=== PATIENT | male | born 1960 | race Caucasian/White ===

== ENCOUNTER 2020-07-13 20:33 | Emergency (ER) | payer OTHER ==
[~2020-07-13] VITALS: Ht 182.9 cm; Wt 90.7 kg
[2020-07-13] MEDS ORDERED: SPIRIVA RESPIMAT4 G1 INH (20:58)
[2020-07-13] MEDS ORDERED: VENTOLIN HFA18 GM INH (20:58)
[2020-07-13] MEDS ORDERED: PRILOSEC OTC20 MG PO (20:59)
--- NOTE | 2020-07-14 12:51 | EKG ---
[facility] [address] [facility] [place], [place] [address] Signed Normal sinus rhythm Low voltage QRS Borderline ECG No previous ECGs available Confirmed by MICHAEL MILLER DO ([id number]) on 07/14/2020 12:51:04 PM Electronically Signed By: MICHAEL MILLER DO 07/14/20 1251 PATIENT NAME: JOSSIE CERVANTES Electrocardiogram DATE OF : 60 PHYSICIAN: MICHAEL MILLER DO REPORT #: [id number] REPORT IS CONFIDENTIAL AND NOT TO BE RELEASED WITHOUT AUTHORIZATION
== END 2020-07-14 01:35 | disposition home or self-care (01) ==
LOC: ED 20:33
DX: J18.9 Pneumonia, unspecified organism (principal); Z20.828 Contact with and (suspected) exposure to other viral communicable diseases; J44.9 Chronic obstructive pulmonary disease, unspecified; Z87.891 Personal history of nicotine dependence; Z79.899 Other long term (current) drug therapy
CPT/HCPCS: 71045; 80053; 83735; 83880; 84484; 85025; 93005; 93010; 96365; 99285-25; J1956

== ENCOUNTER 2022-05-17 12:43 | Inpatient (IN) | payer OTHER ==
[~2022-05-17] VITALS: Ht 182.9 cm; Wt 113.0 kg
[~2022-05-17 12:43] MED LIST: PRILOSEC OTC20 MG PO; SPIRIVA RESPIMAT4 G1 INH; VENTOLIN HFA18 GM INH
[2022-05-17] MEDS ORDERED: SINGULAIR10 MG PO (13:01)
[2022-05-17] MEDS ORDERED: PROAIR HFA8.5 GM INH (13:01)
[2022-05-17] MEDS ORDERED: VITAMIN D250 MC1 PO (13:02)
[2022-05-17] MEDS ORDERED: METHOTREXATE2.5 MG PO (13:03)
[2022-05-17] MEDS ORDERED: CLOBETASOL PROP59 ML TOP (13:04)
[2022-05-17] MEDS ORDERED: CELEBREX100 MG PO (13:04)
--- NOTE | 2022-05-17 18:22 | NUR ---
61 YEAR OLD MALE PATIENT ADMITTED TO CCU FROM ED VIA STRETCHER UNDER DR. ARREOLA WITH DX OF SEPSIS. PATIENT HAS BEEN FEELING ILL FOR THE PAST 3 WEEK, REPORTING FEVER AND CHILLS. PATIENT RECIEVED A TOTAL OF 5500 ML OF IVF IN ED AND HAS VOIDE A TOTAL OF 850 ML OF URINE. BUN AND CREATININE ARE ELEVATED. PATIENT REPORTS HAVING A POOR PO INTAKE OF FOOD/FLUIDS. BLOOD CULTURES OBTAINED IN ED, PATIENT RECIEVED IV ZOSYN. MEDICAL HX OF COPD, PREDIABETIC, SURGICAL HX , HERNIA. ADMISSION PROCESS STARTED.
--- NOTE | 2022-05-17 19:00 | NUR ---
MOTT CATH PLACED BY Anthony HUTSON RN. PATIENT TOLERATED WELL.
--- NOTE | 2022-05-17 19:23 | NUR ---
OFFICERS IN ROOM. REPORT TO NEXT SHIFT.
--- NOTE | 2022-05-17 20:00 | NUR ---
PATIENT IS RESTING IN BED. REPORTS FEELING THAT HE IS STARTING TO CHILL AGAIN. ORAL TEMP WNL. PATIENT FEELS COOL ON EXTREMITIES. WARM BLANKET PROVIDED. IV FLUIDS STARTED PER ORDER. PATIENT PROVIDED WITH PRN PAIN AND NAUSEA MEDS. ASSISTED PATIENT TO TURN TO HIS SIDE. MOTT IN PLACE, DRAINING WELL. VS STABLE. OFFICERS AT BEDSIDE. PATIENT DENIED OTHER NEEDS.
--- NOTE | 2022-05-17 22:00 | NUR ---
PATIENT FEELS MORE WARM, ORAL TEMP WNL. PATIENT IS NOT SHIVERING NOW AND FEELS WARM TO THE TOUCH. VS STABLE. IV FLUIDS PER ORDER. NO NAUSEA. PAIN IMPROVING. GOOD URINE OUTPUT, MOTT DRAINING WELL. ASSISTED PATIENT TO REPOSITION IN BED.
--- NOTE | 2022-05-17 23:00 | NUR ---
PATIENT RESTING IN BED. REPORTS IMPROVED COMFORT AND GENERALLY LOOKS MORE COMFORTABLE. ABD PAIN ACROSS LOWER ABD IS 5/10. NO NAUSEA. IV ABX PER ORDER, IV SITE WNL X2. PATIENT PROVIDED A CLEAR SODA. DENIED OTHER NEEDS.
--- NOTE | 2022-05-18 00:26 | NUR ---
PATIENT RESTING IN BED, EYES CLOSED WHEN RN IN ROOM. ALERTS EASILY TO SOUND. PATIENT DENIED ANY NEEDS. REPORTS FEELING HOT. ORAL TEMP WNL. EXTRA BLANKETS REMOVED. ADEQUATE URINE OUTPUT. IV FLUIDS PER ORDER, SITE WNL.
--- NOTE | 2022-05-18 00:45 | NUR ---
UPDATE GIVEN TO DR. ARREOLA MANUAL BP 76/62, HR 115. ORDERS TO GIVEN 500 ML BOLUS OVER 1 HOUR AND THEN INCREASE IVF TO 200 ML/HR. VERIFIED VIA REPEAT BACK METHOD. OUTPUT GOAL OF 45ML PER HOUR.
--- NOTE | 2022-05-18 01:48 | NUR ---
NOTED HR OF 164 ON MONITOR, IN TO ASSESS. pt STATED THE MONITOR ALARMING WOKE HIM, DENIES ANY SYMPTOMS FROM HR. HR NOW LOW 100'S. NO REQUESTS AT THIS TIME. CALL LIGHT WITHIN REACH. GUARDS AT BEDSIDE.
--- NOTE | 2022-05-18 04:25 | NUR ---
PATIENT RESTING IN BED WATCHING TV. REPORTS FEELING SLIGHTLY IMPROVED. ORAL AND AXILLARY TEMP WNL. URINE OUTPUT QS. VS STABLE. IV FLUIDS PER ORDER, SITE WNL. ABD SLIGHTLY LESS DISTENDED AND MORE SOFT. NO NAUSEA. PATIENT DENIED NEEDS.
--- NOTE | 2022-05-18 06:42 | NUR ---
UPDATE PROVIDED TO ORDERS VERIFIED VIA REPEAT BACK; ADD ON LABS AND MEDS. SEE ORDERS.
--- NOTE | 2022-05-18 07:14 | NUR ---
MORPHINE 4 MG IV GIVEN BY GROUP PRESIDENT RN PATIENT WITH SEVERE RIGORS. HR 150-170.
--- NOTE | 2022-05-18 07:15 | NUR ---
RECEIVING REPORT. UPON RECIEVING REPORT. PATIENT HAVING RIGORS. HR 170'S. IVF INFUSING AT 200 ML/HR. IV ABX INFUSING. RR-38. 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 HAS AUDIBLE EXP WHEEZES. HOB ELEVATED SLIGHTLY. MOTT PATENT. WHEN I ASKED PATIENT IF THIS IS WHAT HAS BEEN HAPPENING TO HIM OVER THE LAST FEW DAYS,PATIENT NODS HEAD UP AND DOWN INDICATING YES. OFFICERS X [address] ARREOLA NOTIFIED.
--- NOTE | 2022-05-18 07:30 | NUR ---
ORDERS RECIEVED TO GIVE 15 MG OF IV TORDOL. RT GIVING NEB TREATMENT. MAG HUNG PER ORDERS.
--- NOTE | 2022-05-18 08:11 | NUR ---
LAB HERE TO DRAW BLOOD CULTURES. PATIENT NOW MUCH MORE CALM. NO WHEEZES HEARD. RR-25, HR-125, AX TEMP -102.2,
--- NOTE | 2022-05-18 08:20 | NUR ---
OXYCODONE 5 MG PO GIVEN FOR GENERAL PAIN.
--- NOTE | 2022-05-18 09:51 | NUR ---
RESTING. NO DISTRESS NOTED.
--- NOTE | 2022-05-18 10:00 | NUR ---
DR. ARREOLA HERE TO SEE PATIENT. PATIENT WILL HAVE REPEAT CT OF ABD/PELVIS TODAY. PATIENT STATES HE FEELS BETTER AFTER RECIEVING PAIN MEDICATION. IS DIAPHORTIC. CURRENT TEMP 99.5 AX.
--- NOTE | 2022-05-18 10:31 | NUR ---
PATIENT AWAKE IN BED, 2 GUARDS IN ROOM. BEDBATH PROVIDED, NEW GOWN PROVIDED. VITALS CHARTED. FRESH ICE WATER PROVIDED. NO OTHER NEEDS AT THIS TIME
[2022-05-18] MEDS ORDERED: INCRUSE ELLI62.5 MCG INH (11:09)
[2022-05-18] MEDS ORDERED: DOVONEX60 GM TOP (11:10)
--- NOTE | 2022-05-18 11:11 | NUR ---
MED REC COMPLETE
--- NOTE | 2022-05-18 11:18 | NUR ---
HAS BEEN TALKING ORAL CONTRAST. DENIES NAUSEA.
--- NOTE | 2022-05-18 12:15 | NUR ---
TO CT VIA BED. BED LINEN CHANGED WHEN PATIENT IN CT.
--- NOTE | 2022-05-18 12:40 | NUR ---
RETURN TO CCU. TOLERATED CT WELL. TEMP 101.4 AX, TYLENOL 500 MG PO GIVEN FOR COMFORT AND FEVER. PATENT HAS BEENT TAKING WATER W/O NAUSEA. CLEAR LIQ LUNCH TRAY HELD.
[2022-05-18] MEDS ORDERED: FOLIC ACID0.4 MG PO (12:47)
--- NOTE | 2022-05-18 13:20 | NUR ---
CT RESULTS BACK, DR. ARREOLA NOTIFIED.
--- NOTE | 2022-05-18 14:15 | NUR ---
OXYCODONE 5 MG PO GIVEN FOR COMFORT.
--- NOTE | 2022-05-18 15:00 | NUR ---
HIGHER DOSE OF ZOSYN ORDERED AND HUNG. THE ZOSYN THAT WAS AT 1348 THIS AFTERNOON WAS DC'D AT [address] ARREOLA ORDERS HE WANTED THE HIER DOSE STARTED MICHAEL.
--- NOTE | 2022-05-18 15:25 | NUR ---
HEPARIN GTT HUNG AT 1600 UNITS/HR PER ORDERS.
--- NOTE | 2022-05-18 16:50 | NUR ---
DR. ARREOLA PHONED IN TO CHECK ON PATIENT. IVF TO TOTAL 100 ML TOTAL. LR IVF DECREASED TO 68 ML/HR, HEPARIN GTT INFUSING AT 32 ML/HR. NEXT PTT TO BE DRAWN AT 2100 THIS EVENING.
--- NOTE | 2022-05-18 17:15 | NUR ---
DENIES PAIN WITH PALPATION OF ABD. STATES HE IS FEELING BETTER. SITTING UP IN BED FOR CLEAR LIQUID DIET.
--- NOTE | 2022-05-18 18:50 | NUR ---
NAPPING NOW. NO CHANGES.
--- NOTE | 2022-05-18 19:47 | NUR ---
RECEIVED REPORT FROM MARJAN POSADA. pt RESTING IN BED. PROVIDED A WARM BLANKET, pt REPORTS PAIN, DECLINED PAIN MEDICATION AT THIS TIME. CALL LIGHT WITHIN REACH. GUARDS AT BEDSIDE.
--- NOTE | 2022-05-18 21:00 | NUR ---
IN TO DO ASSESSMENT. pt DROWSY, WHEN ASKED IF HE HAD QUESTIONS ABOUT WHAT DR ARREOLA HAD TOLD HIM HE WAS UNSURE WHEN DR ARREOLA HAD BEEN IN HIS ROOM LAST. ORIENTED TO SELF AND PLACE. pt HAS FEVER, PROVIDED TYLENOL. ASSESSMENT DONE. ABD FIRM AND TENDER TO PALPATION. PAIN "OKAY" RIGHT NOW OFFERED PAIN MEDICATION pt DECLINED. INSTRUCTED TO CALL IF HIS PAIN INCREASED. MOTT CARE DONE. pt MOANING/GRUNTING WITH RESPIRATIONS RATE 20'S. DENIES SOB, LUNGS CLEAR THROUGHOUT. LAB DRAW COMPLETED BY Celsion. CALL LIGHT WITHIN REACH. GUARDS AT BEDSIDE.
--- NOTE | 2022-05-18 21:52 | NUR ---
GUARD CALLED THIS RN TO ROOM. pt REPORTING 8/10 PAIN WITH BLADDER "I FEEL LIKE I REALLY HAVE TO PEE" FLUSHED MOTT, 1 SMALL CLOT EXTRACTED. URINE FREE FLOWING. BLADDER SCAN SHOWED NO URINE ALTHOUGH BODY HABITUS MADE SCAN DIFFICULT. pt REPORTS PAIN HAS NOT CHANGED, PROVIDED WITH PRN OXY. LINENS CHANGED. pt REPOSITIONED TO RIGHT SIDE. CALL LIGHT WITHIN REACH. GUARDS AT BEDSIDE.
--- NOTE | 2022-05-18 21:53 | NUR ---
CALLED DR ARREOLA, UPDATED ON FEVER, LABS AND BLADDER ISSUE. MD ORDERED TO REMOVE MOTT AT THIS TIME. NO OTHER ORDERS.
--- NOTE | 2022-05-18 22:12 | NUR ---
MOTT REMOVED, pt STOOD AT BEDSIDE TO ATTEMPT VOID, NO URINE AT THIS TIME. pt SAT ON BEDSIDE REPORTED MOVING "FEELS GOOD" ASSISTED BACK TO BED. IV ANTIBIOTIC INFUSING PER ORDERS. pt REPORTS THAT WITH MOTT REMOVAL HE IS "FEELING BETTER" CALL LIGHT WITHIN REACH. GUARDS AT BEDSIDE.
--- NOTE | 2022-05-18 23:55 | NUR ---
ROUNDED ON pt. RESTING IN BED WITH EYES CLOSED, RESPIRATIONS REGULAR AND UNLABORED RATE 19. NO URINE OUT AT THIS TIME. GUARDS AT BEDSIDE. CALL LIGHT WITHIN REACH.
--- NOTE | 2022-05-19 02:07 | NUR ---
NOTED ARTIFACT ON MONITOR, IN TO ASSIST. pt GETTING UP WITH GUARD. ASSISTED TO STAND AND AMBULATE INTO BATHROOM. pt REQUIRED ASSISTANCE WITH CORDS AND RESTRAINTS. VOIDED 225MLS OF DARK URINE. pt REPORTED 6/10 PAIN IN ABD. PRN GIVEN (SEE MAR). pt SOB WITH AMBULATION UPPER AIRWAY WHEEZING. RT IN WITH NEB TREATMENT. ASSESSMENT DONE. pt RESTING IN BED. PROVIDED FRESH ICE WATER. pt REPORTS "I FEEL BETTER AFTER GETTING SOME SLEEP" MUCH MORE ALERT THEN PRIOR INTERACTIONS. CALL LIGHT WITHIN REACH. GUARD AT BEDSIDE.
--- NOTE | 2022-05-19 03:27 | NUR ---
LAB COMPLETED DRAW. pt REPORTS THAT THE OXY DID NOT HELP HIS PAIN RATES IT 06/24. PRN MORPHINE GIVEN (SEE MAR). NO FURTHER REQUESTS AT THIS TIME. CALL LIGHT WITHIN REACH.
--- NOTE | 2022-05-19 04:26 | NUR ---
[facility] LABS PER LAB REQUEST. pt WOKE TO VOICE, REPORTS PAIN IS NOW 4/10. NO REQUESTS CALL LIGHT WITHIN REACH.
--- NOTE | 2022-05-19 05:21 | NUR ---
RECEIVED CALL FROM LAB WITH NEW aPTT OF 59.6, TITRATED HEPARIN TO 1800 UNITS PER HOUR PER INSTRUCTIONS. ORDERED LAB DRAW FOR 6 HOURS. pt RESTING IN BED WITH EYES CLOSED, RESPRIATIONS REGUALR AND UNLABORED. GUARD AT BEDSIDE. CALL LIGHT WITHIN REACH.
--- NOTE | 2022-05-19 06:15 | NUR ---
IN TO GIVE MEDICATIONS pt REPORTED 6/10 PAIN, PRN GIVEN PER REQUEST (SEE MAR). MORNING MEDS GIVEN. NO CHANGES IN ASSESSMENT. pt RESTING IN BED. CALL LIGHT WITHIN REACH.
--- NOTE | 2022-05-19 07:30 | NUR ---
REPORT RECIEVED. PATIENT RECIEVING NEB TREATMENT. PATIENT IS SOMULENT, DID RECIEVED OXYCODONE AND MORPHINE GIVEN EARLIER. TEMP 102.0. TYLENOL 500MG PO GIVEN. HEPARIN GTT INFUSING AT 1800 UNITS HR. IVF AT 50 ML/HR. ABD IS MORE FIRM TODAY. SLOW TO RESPOND TO COMMANDS.
--- NOTE | 2022-05-19 08:35 | NUR ---
ECHO BEING DONE AT BEDSIDE.
--- NOTE | 2022-05-19 10:20 | NUR ---
DR. ARREOLA HERE TO SEE PATIENT. ORDERS RECIEVED.
--- NOTE | 2022-05-19 10:30 | NUR ---
ptt-65.5. HEPARIN GTT INCREASED TO 1900 UNITS/HR.
--- NOTE | 2022-05-19 11:00 | NUR ---
TO XRAY VIA W/C ACCOMP BY STUDENT ASTRONAUTICAL ENGINEER, OFFICER, ASTRONAUTICAL ENGINEER, RN. PATIENT TO HAVE 3 VIEW ABD. ABD VERY DISTENDED. DENEIS PAIN.
--- NOTE | 2022-05-19 12:45 | NUR ---
DR. ARREOLA REQUESTED BLADDER SCANN PATIENT HASN'T VOIDED SINCE APPROX 0700 THIS AM.
--- NOTE | 2022-05-19 13:00 | NUR ---
BLADDER SCAN DONE, SCAN SHOWED 182 ML IN BLADDER.
--- NOTE | 2022-05-19 13:20 | NUR ---
BLADDER SCAN RESULTS CALLED TO DR. ARREOLA. ORDERS RECIEVED TO PLACE MOTT CATH, BOLUS OF LR 500 ML AND 100 ML OF ALBUMIN.
--- NOTE | 2022-05-19 14:00 | NUR ---
MOTT CATH PLACED WITH RETURN TO DARK JULIAN URINE.
--- NOTE | 2022-05-19 14:15 | NUR ---
LR BOLUS AND ALBUMIN HUNG AFTER PLACING A 22 GA IV TO RIGHT WRIST. TALKED WITH PATIENT ABOUT PLAN.
--- NOTE | 2022-05-19 15:14 | NUR ---
NAPPING, NO DISTRESS NOTED. LR BOLUS CONTINUES TO INFUSE. ALBUMIN COMPLETE. HEPARING AT 1900 UNITS/HR. SODIUM BICARB AT 100 ML/HR. IV ABX INFUSING.
--- NOTE | 2022-05-19 16:01 | NUR ---
ASSESSMENT DONE. INSTRUCTIONS ON USING I.S. GIVEN. TOOK FIRST DOSE OF GASTROGRAFIN WELL. ABD REMAINS FIRM AND DISTENDED. DENIES NAUSEA.
--- NOTE | 2022-05-19 17:40 | NUR ---
TO CT VIA W/C. RN AND OFFICER WITH PATIENT.
--- NOTE | 2022-05-19 17:50 | NUR ---
RETURN TO CCU. PATIENT TOLERATED CT POOR, HAD INCREASED SHORTNESS OF BREAT, HR UP TO 135, UPON RETURN TO ROOM, PATIENT IS VERY TIRED. C/O MOTT CATH PAIN. DENIES ABD PAIN. HEPARIN GTT INCREASED TO 2000 UNITS/HR PER PROTOCOL. PTT WAS 59. REPEAT PTT ORDERED FOR MIDNIGHT. PATIENT IS COOPERATIVE.
--- NOTE | 2022-05-19 18:15 | NUR ---
DR. ARREOLA PHONED, CT RESULTS INDICATE PERFORATED BOWEL. HEPARIN GTT DC'D. PATIENT IS SLEEPING WITH HOB ELEVATED AT APPROX 20 DEGREES. PLAN IS PROBABLE SURGERY THIS NIGHT. PATIENT NOT AWARE OF THIS. IVF INFUSING AT 100 ML/HR.
--- NOTE | 2022-05-19 19:22 | NUR ---
REPORT TO NEXT SHIFT. DR. HOLLAND HERE TO TALK WITH PATIENT ABOUT GOING TO SURGERY TONIGHT.
--- NOTE | 2022-05-19 19:44 | NUR ---
REPORT RECEIVED FROM MARJAN POSADA. DR HOLLAND HAS JUST FINISHED SEEING PT AND IS AWAITING OR CREW FOR SURGERY. CONSENT SIGNED, PT AWAKENS EASILY, STATES HE UNDERSTANDS REASONS FOR SURGERY AND RISKS/BENEFITS. HAS NO QUESTIONS AT THIS TIME. HR 100'S SINUS RHYTHM, RR 20 SPO2 94%, RESP SEEMS SLIGHTLY LABORED.
--- NOTE | 2022-05-19 20:30 | NUR ---
CALL LIGHT ANSWERED. THIS RN IN pt ROOM, pt HOLDING ABDOMEN, TURNING SIDE TO SIDE IN BED SAYING "HELP". RATES PAIN 10/10 ON LEFT SIDE OF ABDOMEN. PHONE CALL TO MD, TELEPHONE ORDER RECEIVED FOR PRN PAIN MEDICATION, ORDER REPEATED BACK TO VERIFY. EMAR UPDATED.
--- NOTE | 2022-05-19 20:37 | NUR ---
PRN PAIN MEDICATION ADMINISTERED AT THIS TIME BY ALBINO WILKINSON. GUARD IN ROOM.
--- NOTE | 2022-05-19 21:23 | CONS ---
[facility] [address] [place], [place] [address] Signed DATE OF CONSULTATION: 05/19/2022 REQUESTING PHYSICIAN: Dr. Arreola. 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 HISTORY OF PRESENT ILLNESS: This 61-year-old white man, who is a prisoner at [facility]. He was admitted to the hospital on May 17, 2022, having presented to the emergency room with significant abdominal pain and some pain in the left lower quadrant. He was admitted by Dr. Arreola as he was noted to have frequent chills, fevers, and sweating. He was unable to eat or drink and has had a low-grade hypotension. His urine output had been found to be quite low. He has underlying problem with COPD for which he has been treated with steroids in the past several weeks according to Dr. Arreola. He is noted to have COPD with baseline shortness of breath and chronic cough not necessarily worsened and has been treated predominantly with methylprednisolone. Additionally, he has psoriasis, prediabetes, and gastroesophageal reflux. At presentation, his laboratory studies showed a lactic acid, which was elevated at 2.5, creatinine elevated at 2.21. Liver enzymes normal. White count 21.9, hematocrit 37.9, and platelets of 430,000. Urinalysis was essentially normal. He continues to have fevers, though was on broad-spectrum antibiotics, temperature up to 39 degrees Celsius, bilateral lower abdominal pain. The presentation CT scan on May 17, 2022, showed diverticulosis of the sigmoid colon, but no evidence of active diverticulitis. A repeat CT scan performed on May 18, which showed left portal vein thrombosis extending into the main portal vein, a chain of lobulated small fluid collection in the medial segment of the left lobe of the liver consistent with hepatic abscess and colonic diverticulosis with him, which was moderate at the sigmoid colon and a 3-cm stool containing mid sigmoid colonic diverticulum or mural cavity associated with colonic wall thickening and pericolonic fat stranding. On that basis, he was considered to have significant diverticulitis with secondary hepatic abscess formation. Portal vein thrombosis was concurrent to all of that process no doubt. Dr. Pal was consulted, who recommended that Dr. Arreola confer with the [facility]. Recommendation had been made from personnel at [facility] to treat the hepatic abscess with IV antibiotics and drainage would be reserved for refractory disease or enlarging abscess. Dr. Pal did not actually see the patient. Electronically Signed By: KIMBERLEY HOLLAND MD 05/19/222122 PATIENT NAME: CHELE CERVANTES CONSULTATION DATE OF : 60 REPORT #: [id number] PHYSICIAN: KIMBERLEY HOLLAND MD PCP: JAMAR LYNCH MD REPORT IS CONFIDENTIAL AND NOT TO BE RELEASED WITHOUT AUTHORIZATION [address] [address] Signed I was called today as abdominal x-ray performed at 11 a.m. today showed increasing distention of the colon. The colon was distended from the proximal colon and air-fluid levels were noted. The ascending and transverse colon were noted to have air-fluid levels and small bowel is decompressed. Maximum diameter of the cecum was considered 16 cm; it was only 5.[address] scan. Transverse colon itself was 9 cm. The patient currently is on a heparin infusion for the portal vein thrombosis as well as sodium bicarbonate, potassium, and sodium chloride as an infusion as well as antibiotic piperacillin (Zosyn). I had recommended a CT scan be repeated once again and that study is pending this evening. REVIEW OF SYSTEMS: The patient has diffuse abdominal pain, which is significant. He has had increased distention of the abdomen today. PHYSICAL EXAMINATION: GENERAL: This is a bearded white man, who is accompanied by a guard. He is in the intensive care unit currently. VITAL SIGNS: His temperature is 99.7, pulse 103, blood pressure 115/72, O2 saturation is 98% on room air. A Valdez catheter is in place. HEENT: Mucous membranes are quite dry. Trachea is midline. CHEST: Shows no evidence of tachypnea currently. ABDOMEN: Quite tender and markedly distended. EXTREMITIES: Showed no clubbing, cyanosis, or edema. LABORATORY DATA: Lab study for today shows a white count of 11.0, hematocrit 26.1, platelets of 235,000, band forms are 3%. Coag studies showed a PTT this morning of 65.5. Tox screen at presentation was negative. Chem profile shows a creatinine currently of 1.28, calcium of 7.8, magnesium 2.2, bilirubin 1.8, AST 136, ALT 184, alkaline phosphatase 156. COVID serology is negative at time of admission. Hepatitis B assessment is pending. I have reviewed his imaging studies, the reports, and so forth. ASSESSMENT: The patient has marked worsening in the past 24 hours of abdominal distention and significant tenderness. Although, his white count is not elevated. He clearly has worsened according to those who have been caring for him. A CT scan is pending at this time. With portal vein thrombosis, metastatic abscess formation in the medial segment of the left lobe and underlying colonic diverticulosis Electronically Signed By: KIMBERLEY HOLLAND MD 05/19/223 PATIENT NAME: CHELE CERVANTES CONSULTATION DATE OF : 60 REPORT #: [id number] PHYSICIAN: KIMBERLEY HOLLAND MD PCP: JAMAR LYNCH MD REPORT IS CONFIDENTIAL AND NOT TO BE RELEASED WITHOUT AUTHORIZATION [address] [place], [place] [address] Signed and now with colonic distention, he may have ischemic colitis or other secondary manifestations of his initial problem. Though not initially thought to have acute diverticulitis, he had been on steroid regimen previously; with advancement of IV antibiotics, his symptoms have worsened not improved. We will review the CT scan anticipated in the next hour or so as he may require emergency decompression of the colon at minimum or resection, possibly considering all factors. MD KALPANA Caro/CARLOS /[id number] cc: MD Jonny Savage FNP Copies: ESTHELA ARREOLA MD, MICHELE R FNP ~ Electronically Signed By: KIMBERLEY HOLLAND MD 05/19/22 2123 PATIENT NAME: CHELE CERVANTES CONSULTATION DATE OF : 60 REPORT #: [id number] PHYSICIAN: KIMBERLEY HOLLAND MD PCP: JAMAR LYNCH MD REPORT IS CONFIDENTIAL AND NOT TO BE RELEASED WITHOUT AUTHORIZATION
--- NOTE | 2022-05-19 21:29 | NUR ---
ANESTHESIA IN TO SEE PT AND DISCUSS PLAN FOR SURGERY.
--- NOTE | 2022-05-19 21:50 | NUR ---
PT LEFT TO SURGERY WITH ANESTHESIA AND OFFICE AUDITORALBINO EDWARDS
--- NOTE | 2022-05-20 02:15 | NUR ---
PT ARRIVED FROM SURGERY WITH OR NURSE, DR HOLLAND AND ANESTHESIA. PT INTUBATED, RT PLACED PT ON VENT WITH SETTINGS: TV 500, FIO2 50%, RR 22 AND PEEP 5, 7.0 TUBE 23CM AT THE LIP. PT IS STILL SEDATED FROM ANESTHESIA AND PER REPORT FROM ANESTHESIA STILL UNDER INFLUENCE OF PARALYTIC. VSS AT THIS TIME, RASS -4. MOTT DRAINING JULIAN URINE. PT HAS MIDLINE INCISION, JPX2 AND FRESH OSTOMY. STOMA IS MOIST AND DARK RED. GUARD REMAINS IN ROOM WITH PT.
--- NOTE | 2022-05-20 04:35 | NUR ---
PT STILL SEDATED, RASS CONTINUES TO BE -5 TO -4, PT BARELY MAKING EYE MOVEMENTS TO MUCH VERBAL AND PHYSICAL STIMULATION. 4MG IV MORPHINE GIVEN FOR PT COMFORT/PAIN. RR REMAINS 20 PT BREATHING WITH THE VENT, SATS HIGH 90'S, HR 80'S. ASSESSMENT DONE, OSTOMY SEEMS TO BE MAKING SOME NOISES, BOWEL SOUNDS HEARD, LUNGS CLEAR. PT REPOSITIONED ONTO LEFT SIDE. RESTRAINTS IN PLACE AND GUARD AT BEDSIDE.
--- NOTE | 2022-05-20 05:15 | NUR ---
LABS DRAWN FROM CENTRAL LINE, 5 ML BLOOD WASTED PER PROTOCOL. BRISK BLOOD RETURN. CENTRAL LINE FLUSHED, CLAVE CHANGED. pt OPENS EYES SPONTANEOUSLY AND CLOSES AGAIN. IVF INFUSING ORDERED. pt RESTING IN BED, EXTREMITIES RELAXED. SOFT RESTRAINTS IN PLACE. NGT TO INT. SUCTION. GUARD IN ROOM.
--- NOTE | 2022-05-20 06:35 | NUR ---
PT HAS BEGUN TO WAKE UP SOME, OPENS EYES TO VOICE, NODS HEAD YES OR NO TO QUSTIONS. NODS NO WHEN ASKED IF HE IS IN PAIN ALTHOUGH HE DOES NOD YES THAT THE ETT IS BOTHERING HIM, WILL GIVEN 4MG IV MORPHINE FOR COMFORT.
--- NOTE | 2022-05-20 07:30 | NUR ---
REPORT RECEIVED, CARE OF PT ASSUMED AT THIS TIME. PT AWAKE IN BED, SCLERA EDEMA NOTED WITH EYES OPENED, DIAPHORESIS NOTED ON FOREHEAD. HEART RATE INTHE 70-80S WHILE ARE REST. SPO2 = 98% ON CURRENT VENT SETTINGS. PROPOFOL DRIP INITIATED AT THIS TIME AT 10 MCG/KG.MIN. IV FLUIDS AND ABX CONTINUE TO INFUSE. RT NOW AT PT BEDSIDE.
--- NOTE | 2022-05-20 08:00 | NUR ---
ASSESSMENT COMPLETED. PT AT A RASS OF -1. AWAKENS TO VOICE. ABLE TO FOLLOW BASIC COMMANDS. PROPOFOL DRIP AT 10 MCG/KG/MIN. BOWEL TONES HYPOACTIVE IN ALL FOUR QUADRANTS. MIDLINE INSICISON DRESSING, CLEAN DRY AND INTACT. ABDOMEN REMAINS DISTENDED. SCDS IN PLACE. THIS RN REMAINS AT PT BEDSIDE.
--- NOTE | 2022-05-20 09:18 | NUR ---
ABG ATTEMPTED BY THIS RN, UNSUCCESSFUL AT FIRST ATTEMPT. SECOND RN RACHEL COATES ATTEMPTING AT THIS TIME. PT REMAINS ON 10 OF PROPOFOL (SEE EMAR). ROUSABLE TO VOICE. SHAKES HEAD NO WHEN ASKED ABOUT ABDOMINAL PAIN.
--- NOTE | 2022-05-20 09:29 | NUR ---
PROPOFOL NOW ON STANDBY. PT EYES ARE OPEN. NODDING YES AND NO IN RESPONSE TO QUESTIONS. RT IN ROOM BEGINNING WEANING TRIAL.
--- NOTE | 2022-05-20 10:34 | NUR ---
Spoke with infirmary at [facility] regarding ostomy supplies. They have their own supplies. Request surgery note. Note faxed to RN.
--- NOTE | 2022-05-20 10:34 | NUR ---
DR HOLLAND IN ROOM AT TIME TO ASSESS PT. PLACED PROPOFOL ON STANDBY. PER DR ARREOLA AND DR HOLLAND, PLAN ESTABLISHED TO TREAT PT FOR PAIN AND KEEP PROPOFOL DRIP OFF COMPLETELY. IV FLUIDS AND ABX CONTINUE TO INFUSE.
--- NOTE | 2022-05-20 10:46 | NUR ---
DISCUSSED PT'S LOW BLOOD PRESSURES WITH DR ARREOLA. DR ARREOLA OK WITH SOFT BLOOD PRESSURES, LONG MAPS MAINTAINED GREATER THAN 65.
--- NOTE | 2022-05-20 11:20 | NUR ---
DR ARREOLA IN ROOM TO ASSESS PT AT THIS TIME. PLAN OF CARE FOR DAY ESTABLISHED. PT ROLLED SIDE TO SIDE, NEW DRAW SHEET IN PLACE. ADLS COMPLETED AT THIS TIME WITH 2 RNS.
--- NOTE | 2022-05-20 11:42 | EKG ---
[facility] [address] [facility] [place] [address] Signed Normal sinus rhythm Low voltage QRS Borderline ECG When compared with ECG of 13-JUL-2020 20:42, No significant change was found Confirmed by ESTHELA ARREOLA MD ([id number]) on 05/20/2022 11:42:15 AM Electronically Signed By: ESTHELA ARREOLA MD 05/20/22 1142 PATIENT NAME: CERVANTESCHELE Electrocardiogram DATE OF : 60 PHYSICIAN: ESTHELA ARREOLA MD REPORT #: [id number] REPORT IS CONFIDENTIAL AND NOT TO BE RELEASED WITHOUT AUTHORIZATION
--- NOTE | 2022-05-20 11:52 | NUR ---
DISCUSSED VBG RESULTS WITH DR ARREOLA. PLAN ESTABLISHED TO DO ANOTHER CPAP TRAIL AT 1230. PT AWAKE IN ROOM. NODS YES WHEN ASKED IF PAIN MEDICATION HELPED. FLUSHED NG TUBE WITH 60 MLS OF TAP WATER. DIFFICULT TO FLUSH. ASSESSMENT COMPLETED. TYRONE REMAINS AT BEDSIDE. WILL CONTINUE TO CLOSELY MONITOR.
--- NOTE | 2022-05-20 12:37 | NUR ---
CPAP TRIAL INITIATED AT THIS TIME.
--- NOTE | 2022-05-20 13:48 | NUR ---
PT EXTUBATED. RT, THIS RN, AND DR ARREOLA AT BEDSIDE. WELL TOLERATED BY PT. CURRENTLY ON 2 L NC. SPO2 = 95%, PT NOW TALKING IN FULL SENTENCES. DENIES PAIN IN THE ABDOMEN, BUT DOES STATE HE HAS DISCOMFORT FROM THE NG TUBE AND IN HIS THROAT POST EXTUBATION. HEART RATE IN THE 80S. WRIST RESTRAINTS RELEASED. CORRECTIONAL RESTRAINTS STILL IN PLACE AND GAURD AT BEDSIDE. WILL CONTINUE TO MONITOR.
--- NOTE | 2022-05-20 14:15 | NUR ---
ALBINO PAEZ INFORMED ME PT WAS JUST EXTEBATED. REQUESTED I NOT DISTURB PT AT THIS TIME. WILL FOLLOW
--- NOTE | 2022-05-20 15:53 | NUR ---
NG TUBE WITHDRAWN SLIGHTLY. NOW FLUSHING MUCH EASIER. PT REPOSITIONED IN BED. GIVEN IV MORPHINE FOR GENERALIZED DISCOMFORT AND ABDOMINAL PAIN. IV FLUIDS AND ABX INFUSING. CALL LIGHT WITHIN REACH. WILL CONTINUE TO MONITOR.
--- NOTE | 2022-05-20 17:09 | NUR ---
PT RESTING WITH EYES CLOSED, BREATHING EVEN AND UNALBORED. SPO2 = 98% ON 2 L NC. HEART RATE INTHE 70S AT REST. IV FLUIDS AND ABX CONTINUE TO INFUSE. NO FURTHER NEEDS AT THIS TIME.
--- NOTE | 2022-05-20 18:07 | NUR ---
DR HOLLAND IN TO SEE PT. ALL PT QUESTIONS ANSWERED. NO NEW ORDERS AT THIS TIME.
--- NOTE | 2022-05-20 18:40 | OR ---
[facility] [address], [place] [address] Signed DATE OF OPERATION: 05/20/2022 SURGEON: Kimberley Holland MD PREOPERATIVE DIAGNOSES: 1. Generalized peritonitis with free intraabdominal air and severe diverticulitis. 2. 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 3. Medial segment of left lobe intrahepatic abscesses. 4. Morbid obesity. POSTOPERATIVE DIAGNOSES: 1. Generalized peritonitis with free intraabdominal air and severe diverticulitis. 2. 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 3. Medial segment of left lobe intrahepatic abscesses. 4. Morbid obesity. 5. Intraabdominal abscess in left pericolic space. 6. Perforated sigmoid diverticulitis with generalized peritonitis. PROCEDURE: 1. Placement of right internal jugular central venous catheter (Arrow blue tip triple-lumen catheter). 2. Laparotomy with drainage of left lower quadrant intraabdominal abscess with cultures (gram-positive coccydynia, gram-negative rods). 3. Sigmoid colectomy with end colostomy and Zuhair's pouch (prolonged, complicated and difficult). 4. Mobilization of splenic flexure. 5. Peritoneal lavage and placement of drains x2 (left pericolic gutter and pelvis). 6. Explantation of portion of abdominal wall mesh. ANESTHESIA: General endotracheal. RUBBER COVERING MACHINE OPERATOR: Kimberley Galindo CRNA, (middle school assistant principal nurse). INDICATION: This 61-year-old white man was admitted on May 17, 2022 in referral from the nursing home. The patient has had a number of days of abdominal pain. His evaluation initially showed diverticulosis. He is noted to have elevated creatinine, elevated white count and vague abdominal pain. Observation of the ensuing several days has shown increasing abdominal Electronically Signed By: KIMBERLEY HOLLAND MD 05/20/22 1840 PATIENT NAME: CHELE CERVANTES OPERATIVE REPORT DATE OF : 60 REPORT #: [id number] PHYSICIAN: KIMBERLEY HOLLAND MD PCP: JAMAR LYNCH MD REPORT IS CONFIDENTIAL AND NOT TO BE RELEASED WITHOUT AUTHORIZATION [facility] [address], [place] [address] Signed distention and now has generalized peritonitis. I was consulted later in the day. A CT scan had been performed the previous two days showing initially no specific findings only diverticulosis, but followup CT scan confirmed increasing inflammation of the sigmoid and left hepatic vein thrombosis and portal vein thrombosis for which a heparin infusion was initiated. He has had increasing distention and a CT scan was repeated today late in the evening, confirming free intraabdominal air and generalized peritonitis. The patient has been on piperacillin antibiotic. I have recommended exploration of the abdomen and remedy of the problem which likely represents perforated diverticulitis. The risks of bleeding, infection, need for colostomy (highly likely) as well as other unforeseen complications including renal failure, failure to cure the problem, and other unforeseen complications were all reviewed with the patient. He understands and wished to proceed. FINDINGS: Generalized peritonitis was definitely noted. The source of the problem was perforated diverticulitis. Additionally, there is an intraabdominal abscess (pelvic abscess) which was independently drained. Perforated diverticulitis was noted. He has extreme obesity of intra-abdominal organs including mesenteric fat. Colonic resection was required, but was challenging on the basis of his fatty and densely inflamed sigmoid mesentery. Abscess fluid extended along the left pericolic gutter up to the spleen which was encumbered by light yellow, greenish of inflammatory fluid. The small bowel itself was reasonably normal. The right colon was normal and not excessively distended. Operation consisted of sigmoid colectomy with end colostomy. Given his thick abdominal wall pannus and very thick mesentery of the sigmoid, passage of the colon through the abdominal wall took a fair amount of time in consideration. Completion colostomy showed viability. The stomach appeared normal. I did not visualize the medial segment of left lobe of the liver to assess for intraparenchymal abscess of the liver. There was some mesh in the region of the mid abdomen from prior umbilical hernia repair. By conclusion, the abdomen was completely cleared and freed of inflammatory fluid. Drains were placed in the left pericolic gutter and in the pelvis. An oversewn rectal stump was quite viable and marked by two Prolene sutures and an end-colostomy formed. The operation was prolonged, complicated, and difficult mainly related to severity of inflammation and his significant obesity. DESCRIPTION OF PROCEDURE: The patient was brought to the operating room, given a general endotracheal anesthetic. Electronically Signed By: KIMBERLEY HOLLAND MD 05/20/22 0170 PATIENT NAME: CHELE CERVANTES OPERATIVE REPORT DATE OF : 60 REPORT #: [id number] PHYSICIAN: KIMBERLEY HLOLAND MD PCP: JAMAR LYNCH MD REPORT IS CONFIDENTIAL AND NOT TO BE RELEASED WITHOUT AUTHORIZATION [address] [address] Signed Pre antibiotic piperacillin was given and a dose was given during the course of operation as well. Sequential compression device stockings were used. A Valdez catheter was already in place. A nasogastric tube was placed by the benefits sales consultant. After satisfactory anesthesia, the abdomen was clipped and prepared with a chlorhexidine solution. He had considerable abdominal distention. A midline incision was made initially below the umbilicus extending towards the symphysis pubis. The abdominal wall pannus was relatively thick, but not nearly as thick as his intraabdominal visceral fat particularly the fatty mesentery. Upon entry to the abdomen, inflammatory fluid was noted and was Gram stained and cultured immediately. Further manipulation showed the small bowel to be reasonably normal, but quite obviously a very firm mass with inflammatory changes of the sigmoid and left colon. It was quite clear that the source of his free air was perforated diverticulitis. The small bowel was packed to the right side of the abdomen after application of a Bookwalter device. An incision was made to mobilize the sigmoid colon in the thick and fibrotic left pelvic sidewall. Dissection was carried inferiorly and clearly an area that marked the transition from the sigmoid to the pelvis and rectum was demarcated. This was freed with electrocautery allowing for egress of a purulent abscess cavity. This was Gram stain and cultured. The rectum and rectosigmoid were soft, pliable, and unencumbered and there was no sign of tumor. Electrocautery was used to free the remnants of the white line of Toldt laterally. The very thickened and vulcanized rubbery consistency of the descending colon and the sigmoid was quite profound. Mobilization of the left colon from the abdominal wall was more challenging than usual. The peritoneum itself thickened to at least 8-10 mm. Ultimately, this was accomplished. It became clear the most effective way for resection of the offending perforated diverticulitis would be an area demarcated as normal and safe. Rectosigmoid was identified and electrocautery used to score the rectosigmoid mesentery in this area. The thickened mesentery was profound, probably 2 inches at minimum in thickness. Electrocautery was used to dissect the mesenteric peritoneal layer. Application of tonsil clamps and heavy clamps was required for security of the vascular pedicles. These were subsequently secured with 0 silk suture given the thick mesentery involved. Ultimately, the distal sigmoid could be mobilized enough to allow for transection. Using a YSABEL stapling device, the rectosigmoid was transected. This allowed for easier mobility of the left colon with sequential application of heavy clamps marching up the sigmoid mesentery. Extreme care was taken throughout this dissection to avoid the unknown position of the left ureter. The pedicles were secured with 0 silk ties or 0 silk suture ligatures. Ultimately, the proximal extent of the inflammatory process could be demarcated. The more proximal segment of colon was still Electronically Signed By: KIMBERLEY HOLLAND MD 05/20/22 1840 PATIENT NAME: CHELE CERVANTES OPERATIVE REPORT DATE OF : 60 REPORT #: [id number] PHYSICIAN: KIMBERLEY HOLLAND MD PCP: JAMAR LYNCH MD REPORT IS CONFIDENTIAL AND NOT TO BE RELEASED WITHOUT AUTHORIZATION [facility] [address] [place] [id number] Signed quite markedly inflamed due to generalized peritonitis, but was not the primary source of the problem at that point. The white line of Toldt was freed with blunt electrocautery dissection and using electrocautery primarily the splenic flexure was mobilized to design as much mobility to the left colon as possible. Reinspection of the pelvic vascular pedicle showed them to be hemostatically secure. An area deemed reasonable for ostomy was designated somewhat inferior to the umbilicus and in the optimal ostomy triangle. The skin was elevated with a Arnold clamp and transected tangentially for providing an ostomy site. Subcutaneous tissue was divided. Anterior rectus sheath and underlying rectus abdominis well identified. A cruciate incision was made in the anterior rectus sheath. A heavy clamp was insinuated between the muscle fibers of the rectus abdominis on the left and the peritoneal cavity entered. The peritoneal side was opened. A [place] clamp was used to deliver the segment of the mobilized left colon. Quite notably, there was a fair amount of inflammation and edema of the teniae epiploica to which required excision to pass the edematous but viable colon through the abdominal wall. His thick abdominal wall pannus made mobilization through this area challenging, but ultimately was accomplished safely. Irrigation was undertaken with saline solution throughout the abdomen. In particular, the upper abdomen had a fair amount of purulent material as well. This was ultimately suctioned free. Finding no other intraabdominal abscess collections, the small bowel was returned to its natural anatomic position. Bilateral lower abdomen incisions were made and 7 mm flat Khanh drains passed and secured the skin with nylon suture. The right-sided drain was passed to the depths of the pelvis. The left side carried along the lateral pelvic gutter extending to the spleen. The midline fascia was reapproximated with running bidirectional #1 PDS suture with interrupted #1 PDS internal retentions in a Smead-Dean configuration. Irrigation was undertaken in subcutaneous space. The skin was closed with skin clips and a watertight. Acticoat dressing applied. Plans were then made for maturation of the colostomy. The colostomy which had been delivered through the abdominal wall with Jamarcus clamps was secured circumferentially with 3-0 Vicryl suture full thickness through the colonic mucosa to the dermis. The inferomedial aspect was the thinnest of all these areas, but at conclusion, although not pink and non inflamed did appear viable. Gentle insinuation of the index finger into the ostomy showed it to track somewhat laterally prior to exit. It appeared viable. The ostomy appliance was fitted to the colostomy site in the left abdominal wall. He Electronically Signed By: KIMBERLEY HOLLAND MD 05/20/22 1840 PATIENT NAME: CHELE CERVANTES OPERATIVE REPORT DATE OF : 60 REPORT #: [id number] PHYSICIAN: KIMBERLEY HOLLAND MD PCP: JAMAR LYNCH MD REPORT IS CONFIDENTIAL AND NOT TO BE RELEASED WITHOUT AUTHORIZATION [facility] [address], [place] [address] Signed was ultimately transferred to the intensive care unit for further management with endotracheal tube in place. Immediate post procedure. Chest x-ray showed the right internal jugular central venous catheter to be well positioned and the endotracheal tube in reasonable position, though it might be advanced 2 cm in the near future. The operation was very prolonged, complicated, and difficult, accomplished safely. He has numerous comorbidities to contend with but I do believe that good source control has now been established. The operation was prolonged, complicated, and difficult lasting till 2:00 a.m. beginning at approximately 10:30 p.m. MD KALPANA Caro/CARLOS /[id number] cc: MD Jonny Savage FNP Copies: ESTHELA ARREOLA MD, MICHELE R FNP ~ Electronically Signed By: KIMBERLEY HOLLAND MD 05/20/22 1840 PATIENT NAME: HELENCHELE TRISTIAN OPERATIVE REPORT DATE OF : 60 REPORT #: [id number] PHYSICIAN: KIMBERLEY HOLLAND MD PCP: JAMAR LYNCH MD REPORT IS CONFIDENTIAL AND NOT TO BE RELEASED WITHOUT AUTHORIZATION
--- NOTE | 2022-05-20 19:36 | NUR ---
REPORT RECEIVED FROM JEANNINE POSADA. PT RESTING IN BED WITH EYES CLOSED, RR 13, HR 70'S, SPO2 97% ON 2L/O2, GUARD IN ROOM.
--- NOTE | 2022-05-20 20:14 | NUR ---
IN TO DO ASSESSMENT, PT STATES YES HE IS HAVING SOME PAIN AND WOULD LIKE SOME PAIN MEDICAITON. 4MG IV MORPHINE GIVEN. PLAN OF CARE FOR THE NIGHT DISCUSSED WITH PT- CONTINUE WITH PAIN MEDICATION NEEDED, MONITOR URINE OUTPUT AND NGT AND REPOSITION NEEDED AND PT AGREEABLE. FEW BOWEL SOUNDS HEARD. JPS DRAINING SEROSANG FLUID. OSTOMY BAG IN PLACE, STOMA IS DARK RED/PURPLE AND IS BELOW THE LEVEL OF THE SKIN, APPEARS MOIST. MIDLINE INCISION HAS DRESSING OVER IT WITH SOME OLD SHADING/DRAINAGE NOTED. MOTT DRAINING JULIAN URINE. IVF INFUSING AT 125ML/HR INTO CENTRAL LINE. PT HAS 2L/O2 IN PLACE, RR 12, RESP EVEN AND UNLABORED, LUNGS DIM IN BASES, VERY SMALL OCCASIONAL WHEEZES HEARD IN UPPER AIRWAYS. SCD'S ARE ON. GUARD IN ROOM.
--- NOTE | 2022-05-21 00:32 | NUR ---
IN TO DO ASSESSMENT, UNCHANGED FROM EARLIER. PT AWAKENS BRIEFLY, DENIES NEEDS, DENIES NEED FOR PAIN MEDICATION. CONT TO WEAR 2L/O2 AND SATS 98%, WHEN TUBING GETS DISLODGED FROM HIS NOSE HE DROPS DOWN TO 88%/RA. RR 13, HR 70'S. NGT IN PLACE, LIWS MODERATE AMTS OF BROWN FLUID. URINE OUTPUT CONTINUES TO BE SATISFACTORY.
--- NOTE | 2022-05-21 02:34 | NUR ---
PT CONTINUES TO SLEEP, RESP EVEN AND UNLABORED.
--- NOTE | 2022-05-21 03:00 | NUR ---
IN TO CHECK ON PT, AWAKE AND C/O ABDOMINAL PAIN, 4MG IV MORPHINE GIVEN. PT REPOSITIONED UP IN BED.
--- NOTE | 2022-05-21 03:58 | NUR ---
IN TO CHECK ON PT, HE STILL C/O OF ABDOMINAL PAIN STATING HE DOESN'T FEEL ANY LESS PAIN SINCE LAST MORPHINE GIVEN. ANOTHER 4MG IV MORPHINE GIVEN. ASSESSMENT DONE.
--- NOTE | 2022-05-21 05:30 | NUR ---
PT RESTING WITH EYES CLOSED, GUARD IN ROOM, ON AND OFF O2 WITH SPO2 89% ON ROOM AIR AND 97% ON OXYGEN.
--- NOTE | 2022-05-21 07:49 | NUR ---
IN ROOM AT THIS TIME FOR ASSESSMENT. PT IS ALERT AND ORIENTED, ANSWERING ALL QUESTIONS APPROPRIATELY. REPORTS MODERATE ABDOMINAL PAIN. BOWEL TONES ACTIVE IN ALL FOUR QUYADRANTS. GENERALIZED EDEMA IMPROVED. EXPIRATORY WHEEZE NOTED IN UPPER AIRWAYS UPON AUSCULTATION. HEART RATE IN THE 70S AT REST. MIDLINE INCISION DRESSING SATURATED WITH SEROUS FLUID. STOMA A BEEFY RED COLOR. IV FLUIDS AND ABX INFUSING. PT REQUESTING PAIN MEDICATION. PLAN OF CARE FOR DAY ESTABLISHED. CALL LIGHT WITHIN REACH. WILL CONTINUE TO MONITOR.
--- NOTE | 2022-05-21 09:25 | NUR ---
PT PREMEDICATED WITH PRN MORPHINE AND ASSISTED UP INTO CHAIR. PT STEADY ON FEET, STAND BY ASSIST REQUIRED TO HELP WITH LINES AND CORRECTIONAL RESTRAINTS. CRACKLES AUSCULTATED IN BILATERAL LUNG BASES. SPO2 ON ROOM AIR UP IN CHAIR AT 88%. PLACED PT BACK ON 2 L NC, AND ENCOURAGED COUGHING AND DEEP BREATHING. RUSSELL DRESSINGS CHANGED AT THIS TIME. IV FLUIDS AND ABX INFUSING. CALL LIGHT WITHIN PT REACH. TYRONE REMAINS AT PT BEDSIDE. WILL CONTINUE TO CLOSELY MONITOR.
--- NOTE | 2022-05-21 09:58 | NUR ---
DR ARREOLA UPDATED ON WBC ON LABS AND ASSESMENT FINDINGS. NO NEW ORDERS.
--- NOTE | 2022-05-21 11:05 | NUR ---
DR ARRELOA IN ROOM TO ASSESS PT. PLAN OF CARE FOR AFTER DISCUSSED.
--- NOTE | 2022-05-21 11:34 | NUR ---
ASSESSMENT COMPLETED. PT UP FROM CHAIR BACK TO BED WITH ONE PERSON ASSIST FOR LINES AND CORDS. STEADY ON FEET. IV FLUIDS AND ABX ADMINISTERED. PT DENIES NEED FOR PAIN MEDICATION AT THIS TIME. NG TUBE DRAINING GREEENISH BILE. CRACKLES IN LOWER LOBES STILL NOTED ON ASSESSMENT. PT REMAINS ON 2 L NC. CALL LIGHT WITHIN REACH. WILL CONTINUE TO MONITOR.
--- NOTE | 2022-05-21 11:38 | NUR ---
PER AM MEETING NO CHANGES IN DISCHARGE PLAN AT THIS TIME.
--- NOTE | 2022-05-21 11:53 | NUR ---
IMAGING IN ROOM FOR ABDOMINAL XRAY
--- NOTE | 2022-05-21 12:03 | NUR ---
PT GIVEN PRN PAIN MEDICATION FOR ABDOMINAL PAIN AFTER IMAGING COMPLETED. IV LASIX GIVEN, POTASSIUM NOW INFUSING. IV FLUID RATE DECREASED TO 75 MLS/HR. CALL LIGHT WITHIN REACH. WILL CONTINUE TO MONITOR.
--- NOTE | 2022-05-21 14:38 | NUR ---
IV POTASSIUM DONE INFUSING. PT RESTING. STATES PAIN IS MANAGABLE AT THIS TIME. CALL LIGHT WITHIN REACH. WILL CONTINUE TO MONITOR.
--- NOTE | 2022-05-21 15:15 | NUR ---
IN ROOM WITH DR ADAMS TO ASSESS PT. NO NEW ORDERS.
--- NOTE | 2022-05-21 15:32 | NUR ---
ASSESSMENT COMPLETED. CRACKLES IN BILATERAL LUNG BASES HAVE DIMINISHED. PT HAS HAD GOOD URINE OUTPUT SINCE THE IV LASIX WAS ADMINSTERED. PT IS FLUSHED AND MIDLY DIAPHORETIC, BUT A FEBRILE. REPORTS 7/10 ABDOMINAL CRAMPING. PAIN WITH ABDOMINAL PALPATION. ABDOMEN REMAINS FIRM AND DISTENDED. NG PUTTING OUT LIGHT YELLOWISH BILE. IV PAIN MEDICATION ADMINISTERED (SEE EMAR). ASSISTED WITH REPOSITIONING, CALL LIGHT WITHIN REACH. WILL CONTINUE TO MONITOR.
--- NOTE | 2022-05-21 17:32 | NUR ---
PT ASLEEP, BREATHING EVEN AND UNLABORED. CALL LIGHT WITHIN REACH. IV FLUIDS INFUSING. TYRONE REMAINS AT BEDSIDE.
--- NOTE | 2022-05-21 17:54 | NUR ---
LAB CALLED TO REPORT CULTURE GROWTH OF GRAM NEGATIVE RODS IN BROTH ONLY FROM PERINEAL FLUID COLLECTED ON 05/19. REPORTED THIS INFORMATION TO DR ARREOLA, NO FURTHER ORDERS.
--- NOTE | 2022-05-21 20:00 | NUR ---
REPORT RECEIVED FROM DAY SHIFT RN. PT IS RESTING IN BED W/ RESTRAINTS IN PLACE; OFFICER AT BEDSIDE. VSS. WILL CONT TO MONITOR.
--- NOTE | 2022-05-21 22:00 | NUR ---
PT IS RESTING IN BED W/ RESTRAINTS IN PLACE AND OFFICER AT BEDSIDE. TOLERATING IVF AND MEDICATIONS ORDERED. VERBALIZES NEEDS APPROPRIATELY. MIDLINE DRESSING INTACT. RUSSELL DRAINS TO BULB SUCTION W/ SMALL AMOUNT OF OUTPUT. MOTT INTACT AND DRAINING YELLOW URINE. VSS. WILL CONT TO MONITOR.
--- NOTE | 2022-05-22 | NUR ---
PT IS RESTING IN BED WITH HIS EYES CLOSED AND APPEARS COMFORTABLE. TOLERATING IV ANTIBIOTICS ORDERED. VSS. RUSSELL DRAIN INTACT X2. MOTT CATHETER PATENT WITH YELLOW URINE. WILL CONTINUE TO MONITOR.
--- NOTE | 2022-05-22 02:00 | NUR ---
PT REMAINS RESTING IN BED W/ HIS EYES CLOSED. VSS. NGT, MOTT AND RUSSELL DRAINS PATENT. TOLERATING IVF. WILL CONTINUE TO MONITOR.
--- NOTE | 2022-05-22 04:00 | NUR ---
PT W/ C/O ABDOMINAL PAIN UPON ASSESSMENT- PRN PAIN MEDICATION ADMINISTERED; PT WAS ASSISTED W/ REPOSITIONING IN BED. NGT, MOTT AND RUSSELL DRAINS INTACT AND DRAINING APPROPRIATELY. VSS. WILL CONTINUE TO MONITOR.
--- NOTE | 2022-05-22 06:08 | NUR ---
PT W/ INCREASED RESTLESSNESS- C/O ABDOMINAL PAIN; PRN PAIN MEDICATION ADMINISTERED ORDERED. PT ASSISTED W/ REPOSITIONING IN BED. VSS. PT VERBALIZES NEEDS APPROPRIATELY. CALL LIGHT AT BEDSIDE. WILL CONTINUE TO MONITOR.
--- NOTE | 2022-05-22 07:48 | NUR ---
IN ROOM FOR ASSESSMENT AND MEDICATION ADMINSTRATION. PT MOANING. REPORTS06/24 PAIN "EVERYWHERE" ABDOMEN DISTENDED AND PAINFUL TO PALPATION. PT GIVEN PRN MORPHINE AT THIS TIME (SEE EMAR). LUNGS SOUND DIMINISHED IN BILATERAL BASES. DISTAL PULSES STRONG. IV FLUIDS AND MAGNESIUM INFUSING. RT NOW AT BEDSIDE.
--- NOTE | 2022-05-22 08:00 | NUR ---
PT PLACED BACK ON 2 L NC BUT RESPIRATORY THERAPY FOR ROOM AIR SATS IN THE MID 80S.
--- NOTE | 2022-05-22 09:44 | NUR ---
ASSISTED PT FROM BED TO CHAIR. GIVEN PRN PAIN MEDICATION BEFORE MOVING PT. PT MORE PAINFUL WITH ACTIVITY THAN YESTERDAY. IV FLUIDS INFUSING. GAURDS AT BEDSIDE. PT REMAINS ON 2 L NC. SPO2 = 92%. CALL LIGHT WITHIN REACH. WILL CONTINUE TO MONITOR.
--- NOTE | 2022-05-22 09:55 | NUR ---
No change in dc plan. [facility].
--- NOTE | 2022-05-22 10:23 | NUR ---
PATIENT REMAINS NPO POST-OP. TPN HAS NOT BEEN STARTED DUE TO BACTEREMIA. DR. ADAMS HAS NOTED POSSIBLY STARTING TPN WHEN THE BACTEREMIA HAS CLEARED. SEE NUTRITION ASSESSMENT ON 05/20 FOR TPN RECS.
--- NOTE | 2022-05-22 11:14 | NUR ---
UPDATED DR ARREOLA ON PT'S INCREASED PAIN AND ABDOMINAL DISTENTION. DR ADAMS'S CELL PHONE CALLED. DR ADAMS CURRENTLY IN A DIFFERENT SURGICAL CASE. MESSAGE LEFT FOR HIM.
--- NOTE | 2022-05-22 12:24 | NUR ---
DR ADAMS UPDATED ON PT CURRENT CONDITION AND ASSESSMENT FINDINGS. NO NEW ORDERS.
--- NOTE | 2022-05-22 12:49 | NUR ---
IV MAGNESIUM AND POTASSIUM INFUSING. PT ALSEEP IN RECLINER. HEART RATE 85-95 AT REST. CALL LIGHT WITH ONEL. CARMEN AT BEDSIDE. WILL CONTINUE TO MONITOR.
--- NOTE | 2022-05-22 13:11 | NUR ---
VITALS AND I&OS CHARTED. MOTT AND BOTH DRAINS EMPTIED. PATIENT SHIFTING IN CHAIR AND MOANING IN DISCOMFORT. 2 OFFICERS AT BEDSIDE
--- NOTE | 2022-05-22 14:00 | NUR ---
PT REMAINS IN THE CHAIR. IV ABX NOW INFUSING WITH IV FLUIDS. PT ASLEEP. CALL LIGHT WITHIN REACH. WILL CONTINUE TO MONITOR.
--- NOTE | 2022-05-22 15:09 | NUR ---
ASSESSMENT COMPLETED. PT UP FROM CHAIR AND PIVOT TRANSFER TO BED. PT MOANS AND COMPLAINS OF 6/10 ABDOMINAL PAIN. PT UNABLE TO SUBSTANTIATE PAIN FEATURES. ABDOMEN REMAINS DISTENDED AND PAINFUL TO TOUCH. IV MORPHINE GIVEN (SEE EMAR). PT NOW RESTING IN BED, CALL LIGHT WITHIN REACH, WILL CONTINUE TO MONITOR.
--- NOTE | 2022-05-22 15:32 | PATH ---
[facility] [address] [place], [place] [address] Signed SPECIMEN(S): A SIGMOID COLON SPECIMEN(S): B ABDOMINAL WALL SPECIMEN SOURCE: A. SIGMOID COLON B. ABDOMINAL WALL CLINICAL HISTORY: Abdominal pain, possible perforated diverticulum FINAL PATHOLOGIC DIAGNOSIS: A. Colon, sigmoid, sigmoid colectomy: - Perforated diverticulitis. - Acute serositis. - One lymph nodes with no evidence of malignancy (0/1). - Viable surgical margins. B. Portion of mesh, abdominal wall, excision: - Dense fibrocollagenous fibroconnective tissue and fibroadipose tissue with embedded surgical mesh material, associated foreign body type giant cell reaction and chronic inflammation. NAL:cml:C2NR MICROSCOPIC EXAMINATION: Histologic sections of all submitted blocks are examined by light microscopy. These findings, together with the gross examination, support the pathologic diagnosis. GROSS DESCRIPTION: Two specimens are received in two containers, labeled "" Jarocho. The specimen, labeled "MR, A," and designated on the requisition "sigmoid colectomy with perforated diverticula, abdominal pain, possible perforated diverticulum," is received in formalin and consists of a previously opened, unoriented, 13.5 cm long, 3.5 cm diameter bowel segment with attached adipose tissue up to 3.8 cm wide. One end has a 3.6 cm long staple line which is removed and the underlying tissue is inked orange. The opposing end has a previously partially fragmented, 2.4 cm long upon reconstruction, staple line that is removed and the underlying tissue is inked blue. The bowel serosa is mercado to brown, markedly ragged with multiple mercado to dark brown adhesions and focal areas of olsen exudate. The attached adipose tissue, abutting the bowel serosa, has a dark brown, PATIENT NAME: CHELE CERVANTES PATHOLOGY DATE OF : 60 REPORT #: [id number] PHYSICIAN: GARRICK PATHOLOGY PCP: JAMAR LYNCH MD REPORT IS CONFIDENTIAL AND NOT TO BE RELEASED WITHOUT AUTHORIZATION [facility] [address] [place], [place] [address] Signed slightly ragged, 2.2 x 1.0 cm defect that grossly appears to extend 1.7 cm into the adipose tissue. The defect is 3.8 cm from the blue ink staple line and 5.8 cm from the orange ink staple line. The defect is inked red. Communicating to the defect is a mucosal outpouching consistent with a diverticulum. The outpouching is 4.6 cm from the blue inked margin and 7.2 cm from the orange inked margin. Additionally the mucosa has numerous additional outpouchings that are consistent with diverticula. Many of the outpouchings have adjacent cavities up to 2.5 cm in greatest dimension. The cavities are consistent with possible abscesses and do not grossly appear to extend to the serosal or adipose tissue surface. The outpouchings are previously 1.2 cm from the blue inked margin and 1.7 cm from the orange inked margin. The remaining mucosa mercado with usual folds and without an additional discrete mass/lesion. Hot Worker sections are submitted as follows: A1 defect to outpouching A2 outpouching to cavity A3 outpouching and adjacent cavity A4 perpendicular section of blue inked margin A5 perpendicular section of orange inked margin including serosal exudate A6 remaining mucosa B. The specimen, labeled "MR, B," and designated on the requisition "portion of *illegible* abd wall," is received in formalin and consists of an unoriented, mercado-white fibromembranous to yellow fibrofatty, ragged, irregularly shaped, 3.4 x 1.2 x 0.9 cm tissue fragment with a blue suture at one aspect. The blue suture is inked blue and the remaining external surfaces specimen is inked red. The specimen is bisected and a discrete mass of lesion is not grossly identified. The specimen is submitted entirely in one cassette (B1). AI (under the direct supervision of a pathologist) The Gross Description was prepared using a voice recognition system. The report was reviewed for accuracy; however, sound-alike word errors, addition and/or deletions may occur. If there is any question about this report, please contact Client Services. PERFORMING LABORATORY: The technical component was performed by [employer], [address] [place] [id number] (CLIA# [id number]). [facility] [address] [place] [id number] (CLIA# PATIENT NAME: CHELE CERVANTES PATHOLOGY DATE OF : 60 REPORT #: [id number] PHYSICIAN: GARRICK LIVINGSTON PCP: JAMAR LYNCH MD REPORT IS CONFIDENTIAL AND NOT TO BE RELEASED WITHOUT AUTHORIZATION [facility] [address] [address] Signed [id number]). Diagnostician: Sindy Purcell MD Pathologist Electronically Signed 05/22/2022 Copies: ~ PATIENT NAME: CHELE CERVANTES PATHOLOGY DATE OF : 60 REPORT #: [id number] PHYSICIAN: GARRICK PATHOLOGY PCP: JAMAR LYNCH MD REPORT IS CONFIDENTIAL AND NOT TO BE RELEASED WITHOUT AUTHORIZATION
--- NOTE | 2022-05-22 17:30 | NUR ---
DR ADAMS IN TO REASSESS PT. PLAN ESTABLISHED TO WATCH PATIENT OVERNIGHT AND REASSES IN THE AM.
--- NOTE | 2022-05-22 20:00 | NUR ---
REPORT RECEIVED FROM DAY SHIFT RN. PT IS IN BED WITH RESTRAINTS IN PLACE AND OFFICER AT BEDSIDE. TOLERATING IVF. RUSSELL MOTT DRAINS AND NGT INTACT. RESPIRATIONS EVEN AND UNLABORED. VSS. NO S/SX OF DISTRESS NOTED. CALL LIGHT WITHIN REACH. WILL CONTINUE TO MONITOR.
--- NOTE | 2022-05-22 22:00 | NUR ---
PT REMAINS IN BED W/ HIS EYES CLOSED AND APPEARS COMFORTABLE. TOLERATING IVF AND IV ABX ORDERED. RESTRAINTS IN PLACE; OFFICER AT BEDSIDE. VSS. MOTT DRAINING AN ADEQUATE AMOUNT OF URINE. RUSSELL DRAINS INTACT W/ SMALL AMOUNT OF DRAINAGE. NGT TO WALL SUCTION. CALL LIGHT WITHIN REACH. WILL CONTINUE TO MONITOR.
--- NOTE | 2022-05-23 | NUR ---
PT REMAINS IN BED W/ RESTRAINTS AND OFFICER AT BEDSIDE. PRN PAIN MEDICATION ADMINISTERED FOR ABDOMINAL PAIN- SEE EMAR FOR ADDITIONAL INFO. TOLERATING IV ABX INFUSION AND IVF. VSS. CALL LIGHT WITHIN REACH. VERBALIZES NEEDS APPROPRIATELY. WILL CONTINUE TO MONITOR.
--- NOTE | 2022-05-23 02:00 | NUR ---
PT REPOSITIONED IN BED WITH ASSIST OF 2. PLEASANT MOOD. NO S/SX OF DISTRESS NOTED. RESPIRATIONS EVEN AND UNLABORED. VSS. VERBALIZES NEEDS. CALL LIGHT WITHIN REACH. OFFICER REMAINS AT BEDSIDE. WILL CONTINUE TO MONITOR.
--- NOTE | 2022-05-23 04:00 | NUR ---
ASSISTED W/ REPOSITIONING IN BED. SMALL AMOUNT OF STOOL NOTED FROM OSTOMY. NGT TO WALL SUCTION. RUSSELL DRAINS INTACT- DRESSINGS CHANGED. PRN PAIN MEDICATION ADMINISTERED ORDERED AND HELPFUL. PT APPEARS COMFORTABLE IN BED W/ HIS EYES CLOSED AT THIS TIME. VSS. RESPIRATIONS EVEN AND UNLABORED. NO S/SX OF DISTRESS NOTED. ADEQUATE AMOUNT OF URINARY OUTPUT FROM MOTT. PT COMPLIANT WITH CARES AND ORAL CARE. VERBALIZES NEEDS APPROPRIATELY. OFFICER REMAINS AT BEDSIDE. CALL LIGHT WITHIN REACH. WILL CONTINUE TO MONITOR.
--- NOTE | 2022-05-23 06:30 | NUR ---
SURGEON IN TO ASSESS PT THIS AM. PT IS TOLERATING IVF AND ABX ORDERED. MOTT PATENT WITH ADEQUATE OUTPUT. JPs INTACT. NGT TO WALL SUCTION. SCDs IN PLACE. VSS. NO S/SX OF DISTRESS NOTED. RESPIRATIONS EVEN AND UNLABORED. VERBALIZES NEEDS APPROPRIATELY. CALL LIGHT WITHIN REACH. WILL CONTINUE TO MONITOR.
--- NOTE | 2022-05-23 07:30 | NUR ---
REPORT RECIEVED. PATIENT IS RESTING IN BED. RECIEVEING IV ABX. MOTT CATH PATENT. OFFICER IN ROOM. RIJ DRESSING INTACT.
--- NOTE | 2022-05-23 08:00 | NUR ---
ASSESSMENT DONE. OSTOMY BAG INTACT WITH MOD AMOUNT OF LIQ STOOLS NOTED. BOWEL SOUNDS ACTIVE. DENIES NAUSEA, NGT RETAPED, IS TO LIS WITH GREENISH CONTENTS NOTED. IVF PATENT, MOTT PATENT. TALKED WITH PATIENT ABOUT POC FOR DAY, INDICATES UNDERSTANDING. ORAL CARE GIVEN.
--- NOTE | 2022-05-23 09:00 | NUR ---
RESTING, NO DISTRESS NOTED.
--- NOTE | 2022-05-23 11:46 | NUR ---
PT CALL LIGHT ON. PT REPORTS BACK PAIN AND "IT REALLY STINKS LIKE SOMETHING IS LEAKING." ABDOMEN AND SURGICAL SITES INSPECTED. NOTED THAT OSTOMY BAG IS LEAKING INTO ACTICOAT DRESSING. ACTICOAT DRESSING 1/3 SATURATED WITH STOOL. 125 ML BROWN LIQUID STOOL EMPTIED FROM OSTOMY BAG. ACTICOAT DRESSING, GAUZE DRESSING AROUND LEFT RUSSELL SITE AND OSTOMY BAG REMOVED. NEW OSTOMY BAG PLACED PER PROTOCOL. NO OSTOMY PASTE APPLIED, ONLY SKIN BARRIER APPLIED. OBLONG/OVAL HOLE CUT TO 44MM ON LONG SIDE AND 35 MM ON SHORT SIDE. MIDLINE INCISION WNL WITH EDGES WELL APROXIMATED AND YENI IN PLACE. NO ERYTHEMA NOTED AT THIS TIME. RUSSELL SITE WNL. GAUZE REMAINS OVER RIGHT RUSSELL SITE. STOMA RED/PINK. 1 PERSON ASSIST FOR LINE AND TUBE MANAGEMENT UP TO CHAIR. PT DENIES DIZZINES AND REPORTS THE NEW POSITION HELPS HIS BACK PAIN. NG TUBE REMAINS TO LOW INTERMITTAN SUCTION. MORPHINE GIVEN FOR BACK AND ABDOMINAL PAIN. PTS PRIMARY RN UPDATED. NO ADDITONAL NEEDS AT THIS TIME. CALL LIGHT WITHIN REACH. OFFICER AT BEDSIDE.
--- NOTE | 2022-05-23 14:30 | NUR ---
REMAINS IN CHAIR. HAS BEEN SLEEPING. NG REMAINS TO LIS. IVF INFUSING AT 65 ML/HR. HAS RECIEVED MAG RATLIFFER AND K RIDLUPE TODAY. LASIX GIVEN EARLIER WITH GOOD DIURESIS.
--- NOTE | 2022-05-23 15:00 | NUR ---
AMBULATED WITH WALKER APPROX 10 YARDS. TOLERATED WELL. AFTER AMBULATION, RETURNED TO BED.
--- NOTE | 2022-05-23 15:30 | NUR ---
MORPHINE 4 MG IV GIVEN FOR PAIN. NO STOOL NOTED IN OSTOMY BAG SINCE IT WAS CHANGED THIS MORNING.
--- NOTE | 2022-05-23 18:26 | NUR ---
MORPHINE 4 MG IV GIVEN FOR PAIN.
--- NOTE | 2022-05-23 19:10 | NUR ---
SLEEPING SINCE MORPHINE GIVEN. NO CHANGES.
--- NOTE | 2022-05-23 19:20 | NUR ---
RECEIVED REPORT FROM CCU DAY SHIFT NURSES.
--- NOTE | 2022-05-23 21:05 | NUR ---
PT ASSESSMENT COMPLETED. PT WAS GIVEN 4MG MORPHINE IV FOR CONTINUED ABDOMINAL PAIN. PT DENIES ANY OTHER COMPLAINTS EXCEPT "STILL FEELING WEAK" THE 2 RUSSELL DRAINS ARE CONTINUING TO DRAIN SEROSANGINOUS FLUID, OSTOMY BAG WAS CHANGED BY DAY SHIFT, IT IS INTACT SLIGHT LIQUID STOOL NOTED IN BAG. ABDOMINAL MIDLINE SURGICAL SITE IS DRY, WELL APPROXIMATED, YENI INTACT. REMOVED IV TO LEFT AC, FLUSHED AND WOULD NOT FLUSH CAUSING PAIN TO PT UPON ATTEMPT. TIP INTACT, GAUZE AND COBAN APPLIED. NG TUBE HAS LIGHT BROWN GREEN FLUID IN TUBE AND IS DRAINING INTO SUCTION CONTAINER. IV FLUIDS INFUSING, MOTT DRAINING. EOCI GUARD IN ROOM. PT REMAINS IN RESTRAINTS PER GUARD STAFF BUT IS ABLE TO REPOSITON AND MOVE A BIT.
--- NOTE | 2022-05-23 22:00 | NUR ---
pt's eyes closed, resting in bed, rise and fall of chest visualized. EOCI guard in room.
--- NOTE | 2022-05-24 00:09 | NUR ---
pt medicated with additional 4mg morphine for abdominal pain. Guard stepped out to say patient needed something. in room patient awake, woke up and states he felt like his colostomy bag was leaking. assessed the area, no signs of saturation noted, dressings to qamar sites are dry, intact. midline abdominal surgical site is intact. colostomy bag has scant amount of semi liquid stool draining.
--- NOTE | 2022-05-24 01:45 | NUR ---
answered call light, asked patient what he needed and states "did I push something?" this RN asked patient again if there was anything he needs and pt is slightly drowsy and says "yes, I did but i can't think of it now" pt asked about his pain states "it is still gnarly" asked pt if it was improved with morphine and states "it seems like it at first" pt medicated with another 4mg morphine IV
--- NOTE | 2022-05-24 07:30 | NUR ---
REPORT RECIEVED. PATIENT IS RESTING IN BED. IVF PATENT. O2 [address] MOTT CATH PATENT WITH DARK JULIAN URINE NOTED. NG TO LIS. OSTOMY BAG INTACT WITH LIQUID BROWN STOOL, ABD INCISION WELL APPROXIMATED. NO REDDNESS OR DRAINAGE MOTED. STAPLE ARE INTACT. TALKED WITH PATIENT ABOUT POC FOR THE DAY, IS W/O QUESTIONS.
--- NOTE | 2022-05-24 10:00 | NUR ---
BELKYS, AMBULATED IN HALLWAY ACCOMP BY RN AND EOCI OFFICER. PATIENT WALKED MEHRAN ROOM 129 TO ROOM 126 THEN BACK TO ROOM. TOLERATED WELL. TO CHAIR. DR. ADAMS HERE TO SEE PATIENT ORDERS RECIEVED. NG CLAMPED AT THIS TIME.
--- NOTE | 2022-05-24 11:08 | NUR ---
OSTOMY BAG INTACT. BROWN LIQUID STOOL, PASSING FLATUS.
--- NOTE | 2022-05-24 12:30 | NUR ---
REMAINS IN CHAIR. ASSESSMENT DONE. CONTINUES TO DENY NAUSEA. NGT DC'D PER ORDERS. PATIENT VERY PAINFUL, MOANING.
--- NOTE | 2022-05-24 12:32 | NUR ---
MORPHINE 2 MG IV GIVEN FOR PAIN. BACK TO BED WITH ASSIST. OSTOMY BAG EMPTIED EARILER FOR 200 ML LIQUID STOOL. RUSSELL X 2 INTACT.
--- NOTE | 2022-05-24 12:37 | NUR ---
NG TUBE DC'D PER ORDERS.
--- NOTE | 2022-05-24 15:00 | NUR ---
SLEEPING. NO DISTRESS NOTED. O2 AT [address]
--- NOTE | 2022-05-24 16:20 | NUR ---
ASSESSMENT UNCHANGED. RESTING.
--- NOTE | 2022-05-24 17:45 | NUR ---
OOB, AMBULATING IN HALLWAY USING WALKER. TOLERATED WELL. BACK TO ROOM, THEN TO CHAIR. MORPHINE GIVEN FOR PAIN.
--- NOTE | 2022-05-24 19:12 | NUR ---
BACK TO BED. MORPHINE 4 MG IV GIVEN PER REQUEST. C/O POST OP PAIN. NO CHANGES.
--- NOTE | 2022-05-24 19:34 | NUR ---
REPORT RECEIVED FROM DAY SHIFT RN. PT RESTING IN BED WITH RESTRAINTS IN PLACE AND OFFICER AT BEDSIDE. CALL LIGHT WITHIN REACH. VSS. RESPIRATIONS EVEN AND UNLABORED. NO S/SX OF DISTRESS NOTED.
--- NOTE | 2022-05-24 22:00 | NUR ---
PT RESTING IN BED. OFFICER AT BEDSIDE. TOLERATING IVF ORDERED. SCDs IN PLACE. VSS. RESPIRATIONS EVEN AND UNLABORED. NO DISTRESS NOTED. VERBALIZES NEEDS APPROPRIATELY. CALL LIGHT WITHIN REACH. WILL CONTINUE TO MONITOR.
--- NOTE | 2022-05-25 | NUR ---
PT RESTING IN BED WITH HIS EYES CLOSED AND APPEARS COMFORTABLE. VSS. RESPIRATIONS EVEN AND UNLABORED. NO S/SX OF DISTRESS NOTED. VERBALIZES NEEDS APPROPRIATELY. CALL LIGHT WITHIN REACH. WILL CONTINUE TO MONITOR.
--- NOTE | 2022-05-25 02:00 | NUR ---
PRN PAIN MEDICATION ADMINISTERED FOR ABDOMINAL PAIN. PT REPOSITIONED IN BED WITH ASSISTANCE. OFFICER AT BEDSIDE. CALL LIGHT WITHIN REACH. VSS. RESPIRATIONS EVEN AND UNLABORED. NO S/SX OF DISTRESS NOTED. WILL CONT TO MONITOR.
--- NOTE | 2022-05-25 04:00 | NUR ---
PT RESTING IN BED W/ HIS EYES CLOSED AND APPEARS COMFORTABLE. RESTRAINTS IN PLACE. OFFICER AT BEDSIDE. CALL LIGHT AT HAND. VSS. TOLERATING IVF. RESPIRATIONS EVEN AND UNLABORED. WILL CONTINUE TO MONITOR.
--- NOTE | 2022-05-25 06:07 | NUR ---
PT UP IN CHAIR AT BEDSIDE W/ OFFICER AT SIDE; RESTRAINTS IN PLACE. PRN ANTIEMETIC ADMINISTERED AND HELPFUL FOR NAUSEA. CALL LIGHT AT HAND. PT VERBALIZES NEEDS. VSS. RESPIRATIONS EVEN AND UNLABORED. NO S/SX OF DISTRESS NOTED. WILL CONTINUE TO MONITOR.
--- NOTE | 2022-05-25 08:37 | NUR ---
IN PATIENT'S ROOM FOR ASSESSMENT, BREAKFAST, AND MANAGER AGRICULTURAL. PT UP IN CHAIR AND TOLERATING THIS WELL. PT STATES HE IS 10/10 PAIN CURRENTLY AND ASKING FOR PAIN MEDICATION. LUNG SOUNDS ARE CLEAR AND PATIETN REMAISN ON ROOM AIR. MIDLINE INCISION IS INTACT, DRY, AND WELL APPROXIMATED. YENI ARE INTACT. COLOSTOMY IS LEFT SIDED AND HAS SOME SMALL AMOUNT OF BROWN LIQUID BM NOTED IN THERE. RUSSELL DRAINS X2 STILL PRESENT AND RIGHT SIDE EMPTIED AT THIS TIME FOR 40 ML. BOWEL SOUNDS ARE ACTIVE. EOCI NYLON RESTRAINTS ARE PRESENT ON WRISTS AND ON ANKLES. EOCI GUARD PRESENT IN ROOM AT ALL TIMES. PT STATES, "I'VE GOT TO GET THIS MOTT OUT TODAY, IT HURTS SO BAD AND IT ISN'T WORKING." ASSESSED MOTT WHICH IS DRAINING CONCENTRATED APPEARING URINE BUT IS DRAINING WELL. DISCUSSED WIHT PATIENT THAT WE WILL DISCUSS WITH MD IF THIS CAN COME OUT TODAY. PT BROUGHT A CLEAR LIQUID TRAY. PT ON FLUID RESTRICTION OF 1000 ML/24 HRS AT THIS TIME. WILL CONTINUE TO MONITOR CLOSELY.
--- NOTE | 2022-05-25 09:04 | NUR ---
DR. HOLLAND IN TO SEE PATIENT. PLAN IS FOR PATIENT TO TRANSFER TO FLOOR WITHOUT TELEMETRY, MOTT CAN BE D/C, AND DIET WILL BE ADVANCED. ALSO DISCUSSED PAIN CONTROL AND STARTING SOMETHING LONGER ACTING THAN MORPHINE. WILL WAIT FOR FURTHER ORDERS.
--- NOTE | 2022-05-25 11:04 | NUR ---
PATIENT UP IN HALLWAY TO AMBULATE, AND AMBULATES UP AND DOWN CCU WALLACE X1. PT STATES, "I'M JUST FATIGUED AND TIRED OVERALL." PT NOW BACK INTO BED AND CENTRAL LINE DRESSING CHANGED. PT TOLERATED WELL. INCISION ON ABDOMEN CLEANED WITH SOAP AND WATER, AND 2 NEW DRAIN SPONGES ADDED TO RUSSELL SITES. RIGHT RUSSELL DRAIN CONTINUES TO PUT OUT CLEAR/YELLOW FLUID WITH SOME CHUNKY/THICK PINK/RED MATTER WELL. PT NOW WANTING TO REST AND WARM BLANKET PROVIDED. LUNCH ORDERED FOR PATIENT HE IS NOW ADVANCED TO A REGULAR DIET, BUT WANTING TO ADVANCE HIM SLOWLY AND TOLERATED. WILL CONTINUE TO MONITOR.
--- NOTE | 2022-05-25 11:55 | NUR ---
PATIENT'S DIET JUST ADVANCED TO REGULAR FOR LUNCH TODAY. NO TPN INITIATED. WILL MONITOR PO INTAKE. HE MAY BENEFIT FROM ENSURE SUPPLEMENTS BETWEEN MEALS IS HE EATS LESS THAN 50%.
--- NOTE | 2022-05-25 12:40 | NUR ---
DR. ARREOLA IN TO SEE PATIENT. PATIENT JUST WOKE UP FROM "THE BEST NAP I'VE HAD WHILE HERE IN THE HOSPITAL," AND IS NOW IN CHAIR. PT MOVING WELL. PT EATING A REGULAR DIET BUT PROGRESSING WITH THIS SLOWLY. PT STATES HIS PAIN IS 7/10 AT THIS TIME, BUT HE CAN FEEL THE PAIN STARTING TO PROGRESS AGAIN. WILL CONTINUE TO MONITOR.
--- NOTE | 2022-05-25 14:12 | NUR ---
PATIENT RESTING IN CHAIR AT THIS TIME. PT ATE MOST OF HIS LUNCH AND STATES HE TOLERATED IT FAIRLY WELL. PLAN FOR THE CT SCAN DISCUSSED WITH PATIENT AND HE WILL GO DOWN TO CT AROUND 1600 TODAY. PT WILL NEED PERIPHERAL IV START. DINNER ORDERED FOR PATIENT WELL. PT DUE TO VOID, AND WILL TRY AND DO THIS SOON HE STATES.
--- NOTE | 2022-05-25 15:08 | NUR ---
BEDBATH PROVIDED, PATIENT ABLE TO DO MOST OF HIS OWN CARE. NEW GOWN AND SOCKS PROVIDED. TEETH BRUSHED, HAIR WASHED. RUSSELL DRAINED. OFFICER STANDING BY. CALL LIGHT IN EASY REACH. NO OTHER NEEDS AT THIS TIME
--- NOTE | 2022-05-25 16:11 | NUR ---
PATIENT DOWN TO CT SCAN WITH EOCI GUARD. PT HAS BEEN RESTING IN CHAIR. NEW IV STARTED IN LEFT HAND FOR CT SCAN. WILL CONTINUE TO MONITOR.
--- NOTE | 2022-05-25 17:22 | NUR ---
PATIENT UP AMBULATING IN WALLACE AT THIS TIME. PT ATE ABOUT 75% OF HIS DINNER. PT STATES HIS STOMACH IS HURTING AND ENCOURAGED PATIENT TO CONTINUE WALKING TO HELP ALLEVIATE SOME GAS POTENTIALLY. PT CONTINUES TO BELCH. CONTINUE TO MONITOR.
--- NOTE | 2022-05-25 18:12 | NUR ---
DISCUSSED WITH DR. ARREOLA ON THE PHONE RESULTS FROM CT SCAN AND PLAN WILL BE TO START ON LOVENOX BID. IVF TO BE TURNED DOWN TO 50 ML/HR. PT SLEEPING IN CHAIR. CONTINUE TO MONITOR.
--- NOTE | 2022-05-25 19:20 | NUR ---
REPORT RECEIVED FROM ALBINO RAMOS. ASSUMED CARE OF pt.
--- NOTE | 2022-05-25 19:58 | NUR ---
CHECKED ON pt. RESTING IN BED WITH EYES CLOSED. NO DISTRESS NOTED. GUARD IN ROOM.
--- NOTE | 2022-05-25 20:35 | NUR ---
pt UP TO VOID AT SIDE OF BED WITH GUARD. RATES PAIN 10/10 IN ABDOMEN. ASSESSMENT COMPLETE. PRN PAIN MEDICATION ADMINISTERED. VSS. CENTRAL LINE LUMENS FLUSHED X 3, HEP LOCKED X 2. IV SL WNL. GUARD AT BEDSIDE. CALL LIGHT IN REACH.
--- NOTE | 2022-05-25 22:01 | NUR ---
CHECKED ON pt. RESTING IN BED WITH EYES CLOSED. BREATHING EQUAL AND UNLABORED. NO DISTRESS NOTED. GUARD AT SIDE OF BED. IVF INFUSING CENTRAL LINE WNL ORDERED.
--- NOTE | 2022-05-25 22:39 | NUR ---
WITH ASSIST OF FIRE PROTECTION EQUIPMENT TECHNICIAN PT WAS MOVED IN BED, GUARD PRESENT TO ROOM 122. ALL PERSONAL SUPPLIES MOVED WELL. PT PRIMARY RN AWARE, AND PRESENT IN ROOM.
--- NOTE | 2022-05-25 22:39 | NUR ---
pt OFF FLOOR, TRANSFERRED TO [place] AT THIS TIME. TELEPHONE REPORT GIVEN TO ALBINO WILKS.
--- NOTE | 2022-05-26 01:08 | NUR ---
PATIENT GOT UP TO THE BATHROOM TO USE THE URINAL. ONE GUARD IN THE ROOM. PATIENT VOIDED DARK URINE. PATIENT WANTING TO SIT AT THE EDGE OF THE BED. INSTRUCTED TO USE THE CALL LIGHT IF HELP NEEDED. PATIENT UNDERSTOOD.
--- NOTE | 2022-05-26 06:40 | NUR ---
pt eyes closed, resp rate regular, restraints on from janusz gonzalez x2 in room.
--- NOTE | 2022-05-26 07:30 | NUR ---
Bedside report received from KIERA RN. Pt is sleeping supine. Guard at the bedside. IVF at 50 ml/hr.
--- NOTE | 2022-05-26 11:00 | NUR ---
No change in plan for dc. Pt will return to [facility] when cleared medically. Dr. Heller completed Rx for ostomy supplies. RX and progress notes for last 3 days faxed to [facility] after calling to let them know I am faxing RX.
--- NOTE | 2022-05-26 13:00 | NUR ---
Pt took a shower with SBA. Dressings to b/l drains changed afterwards.
--- NOTE | 2022-05-26 14:17 | NUR ---
PT UP TO SHOWER, SPENCER ASSIST, INDEPENDENT IN SHOWER AFTER SETUP. GUARD OUTISIDE SHOWER DOOR. FULL LINEN CHANGE/GOWN. VITALS I&0'S RECORDED. PT BACK IN BED W/GUARD AT BEDSIDE. NO OTHER REQUESTS AT THIS TIME.
--- NOTE | 2022-05-26 19:29 | NUR ---
REPORT RECEIVED FROM DAY SHIFT RN. PT SITTING IN RECLINER ALERT AND ORIENTED. DENIES NEEDS. WHITE BOARD UPDATED. CALL LIGHT IN REACH. GUARD IN ROOM.
--- NOTE | 2022-05-26 21:07 | NUR ---
EVENING ASSESSMENT COMPLETE. SCHEDULED MEDS ADMIN PER EMAR. PRN FOR HEARTBURN GIVEN. PT SITTING UP IN RECLINER. RESTRAINTS X [address] TRIPLE LUMEN RIGHT IJ FLUSHED AND HEP LOCK PER PROTOCOL. BRISK BLOOD RETURN NOTED IN ALL THREE LUMENS. ABD FIRM AND DISTENDED. MIDLINE INCISION WELL APPROXIMATED WITH YENI. NO REDNESS OR DRAINAGE NOTED. BOWEL TONES ACTIVE. 50 ML GREEN JELLY LIKE OUTPUT FROM OSTOMY. RUSSELL X 2 WITH 10 ML SEROUS DRAINAGE IN EACH. PT DENIES NAUSEA. ENSURE AND FRESH WATER PROVIDED. PT DENIES QUESTIONS OR CONCERNS. CALL LIGHT IN REACH.
--- NOTE | 2022-05-26 22:42 | NUR ---
CALL LIGHT ANSWERED. IN TO ASSIST PT EMPTY 250 ML DARK GREEN LIQUID FROM COLOSTOMY. PT BACK TO BED WITH SBA. DENIES FURTHER NEEDS.
--- NOTE | 2022-05-27 00:34 | NUR ---
ROUNDING NOTE. PT AWAKE IN BED. REPORTS ABD PAIN 7/10 AND ALSO C/O HEARTBURN. HOB ELEVATED. PRN FOR PAIN AND HEARTBURN ADMIN PER EMAR. NO FURTHER NEEDS. GUARD IN ROOM.
--- NOTE | 2022-05-27 03:10 | NUR ---
PT RESTING IN BED WITH EYES CLOSED. RESPIRATIONS EVEN. CALL LIGHT IN REACH.
--- NOTE | 2022-05-27 06:52 | NUR ---
VS AND I&O COMPLETE. SCHEDULED MEDS ADMIN PER EMAR. PT REPORTS ABD PAIN 08/24. PRN FOR PAIN ADMIN PER EMAR. PT DENIES FURTHER NEEDS. GUARD IN ROOM. CALL LIGHT IN REACH.
--- NOTE | 2022-05-27 07:25 | NUR ---
Bedside report received from KIERA RN. Pt is awake, resting in bed and watching TV. Guard at the bedside. RA. Pt reported he had an OK night. Abdomen feels slightly better after 2 doses of Maalox.
--- NOTE | 2022-05-27 08:05 | NUR ---
Simethicone given to aid with belching and distended abdomen.
--- NOTE | 2022-05-27 10:13 | NUR ---
Pt requested pain mediaction. He rated pain 10/10. Pt was advised he could only have Tylenol, Percocet was not due until 12:15pm. Pt was also advised one cannot exceed 4gm of Tylenol in 24 hrs. Pt verbalized understanding.
--- NOTE | 2022-05-27 11:50 | NUR ---
Dr Monae checked on Pt. He d/c'd both drains. He still would like to see the stoma with the next ostomy change. NOC shift - please take a photo of the stoma if changing ostomy. MD ordered Pt to walk TID, changed abx to PO. Pt did 2 laps.
--- NOTE | 2022-05-27 12:20 | NUR ---
AMBULATED PT IN WALLACE, PT DID 2 LAPS. LARGE QTY OF BELCHING. GIVEN SIMITHICONE. BLINDS IN ROOM OPENED. NOTIFIED ALBINO INGRAM OF ALL INCLUDING NEED TO CHANGE IJ DRESSING.
--- NOTE | 2022-05-27 13:00 | NUR ---
PT AMBULATED IN [facility] WITH GUARD, DID TWO MORE LAPS.
--- NOTE | 2022-05-27 14:18 | NUR ---
Pt's R neck was shaved and new central line dressing was applied. Pt's colostomy dressing was also changed and picture was taken/put on chart. Dr Monae made aware to take a look at it tomorrow.
--- NOTE | 2022-05-27 15:19 | NUR ---
Pt ambulated in the hallway with the guard. He is to ambulate one more time today, per Dr's orders.
--- NOTE | 2022-05-27 21:25 | NUR ---
On room air, lungs clear, no c/o cp or sob with exertion. up to edge of bed, voided dark yellow urine. teaching r/t colostomy given, stated understanding, hard to do hands on due to 3way wrist/abd shackles. Midline abd incision with julius in place, bottom 6 julius reddened, edges CDI well approximated, abd distended HEA, stoma in place, draining semiliquid bm. care done, patent. increased burping noted, simethacone give, c/o 10/10 abd pain, medicated with 2 Percocet tabs. R IJ hel locked. patent. tolerating liquids well. repositions self in bed. cooperative with assessment and procedures. 1 EOCI guard in room.
--- NOTE | 2022-05-27 23:56 | NUR ---
PT AWAKENS EASILY, ON ROOM AIR, MIDLINE ABD INCISION W/O CHANGES, DISTENDED, L COLOSTOMY PATENT. NO C/O PAIN OR UPSET STOMACH. TOLERATING IQUIDS, VOIDING DARK YELLOW URINE ANKLES/WRIST AND WAIST RESTRAINTS IN PLACE. 1EOCI GUARDS IN ROOM.
--- NOTE | 2022-05-28 01:46 | NUR ---
Pt resting, on rrom air, no s/sx distess, turns and repositions self in bed. 1EOCI guard in room
--- NOTE | 2022-05-28 02:25 | NUR ---
AWAKES EASILY, ON ROOM AIR, MIDLINE ABD INCISON W YENI, REDNESS AT BASE NO CHANGES. VOIDING DARK YELLOW URINE. USES URINAL, NO C/O PAIN. STOMA W SEMILIQUID GREENISH COLORED BM. CORRECTIONAL RESTRAINTS INPLACE. CALL LIGHT AND FLUIDSA T HANDSA REACH, NO C/O PAIN OR ABD DISCOMOFRT
--- NOTE | 2022-05-28 04:49 | NUR ---
on room air, coop with assessment and blood draws. c/o abd pain, medicated with Percocet 2 tabs. 10 pain. midline incision with julius in place, redness at base up to 6th staple area from the bottom, abd distended firm hypoactive bowel tones at this time.
--- NOTE | 2022-05-28 04:51 | NUR ---
pt on room air, alert and oriented, midline abd icision with julius, redness at base and up to 6th staple from bottoms, area tender, pinkish red, dry. abd firm, tender, . Has been medicated with percocet x1 and with simethacone x1 per abd gas. stoma patent. decreased bowel tones compared to earlier on shift. tolerating liquids well. Pt walked earlier at begining of shift. encouragaged to get up and ambulate. stated understanding. IS at bedside, encouraged to use. wearing correctional restraints, R IJ patent. 1 EOCI officer in room
--- NOTE | 2022-05-28 06:30 | NUR ---
no further c/o pain, encouraged to ambulate. Walking hallways down to lower hallway aroung and up and down nursing station. tolerating well. acompanied by DISPLAYER MERCHANDISE and EOCI guard.
--- NOTE | 2022-05-28 10:22 | NUR ---
MORNING ASSESSMENT COMPLETE. PT ABD MODERAETLY DISTENDED, ACTIVE BOWEL TONES. PT DENIES NEED FOR PAIN INTERVENTION AT THIS TIME. MIDLINE INCISION WITH YENI CDI. DENIES FURTHER NEEDS AT THIS TIME. CALL LIGHT IN REACH.
--- NOTE | 2022-05-28 10:26 | NUR ---
VITALS AND I&OS CHARTED. PATIENT AWAKE IN BED, 1OFFICER IN ROOM. WASHCLOTH PROVIDED FOR FACE AND HANDS. NO OTHER NEEDS
--- NOTE | 2022-05-28 10:42 | NUR ---
No change in plan for dc. [facility].
--- NOTE | 2022-05-28 11:54 | NUR ---
PT AMBULATING UNIT WITH GUARD, THIRD WALK THIS AM.
--- NOTE | 2022-05-28 18:42 | NUR ---
PT LYING AWAKE IN BED, DENIES PAIN OR NEEDS AT THIS TIME. CALL LIGHT IN REACH. GUARD AT BEDSIDE.
--- NOTE | 2022-05-28 19:24 | NUR ---
IN ROOM, ROOM AIR, WEARING CORRECTIONAL RESTRAINTS, C/O ABD PAIN 10/10 MEDICATED WITH 2 PERCOCET. STOMA PATENT, MIDLINE ABD INCISION WTIH YENI REDNESS BELOW BASE AND UP TO 8 STAPLE FROM BOTTOM, ABD FIRM DISTENDED.
--- NOTE | 2022-05-28 21:20 | NUR ---
IN TO GET VITALS, URINAL EMPTIED, OSTOMY CHECKED, NO FURTHER NEEDS AT THIS TIME, RN NOW IN ROOM
--- NOTE | 2022-05-28 21:35 | NUR ---
Pt on room air, wearing correctional restraints, 1EOCI officer in room. Pt was medicated earlier per abd pain, partially effective. Lungs clear dim at bases, no cough noted, coronet at bedside. encouraged to use as per RT instructions. stated understanding. abd large distended soft, tender, faint bowel tones t/o compared to yesterday. midline incision with julius in place. CDI. lowe incision area red colored up to 8th staple from bottom. warm to touch. L stoma patent draining semiliquid soft bm. pt unable to do own care due to reatraints. procedure explained. RIJ patent. Pt tolerating liquids well, voiding QS dark yellow urine. using urinal. alert and oriented, cooperative.
--- NOTE | 2022-05-28 23:15 | NUR ---
ON ROOM AIR, RESTING, EYES CLOSED, NO S/SX DISTRESS NOTED. CORRECTIONAL RESTRAINTS INPLACE, 1 EOCI GUARDS IN ROOM.
--- NOTE | 2022-05-29 01:27 | NUR ---
pt used call light, c/o abd pain, medicated with percocet 2 tabs, 10/10 pain. abd less firm, apoorva, midline inciision with julius in place, ostomy bag patent with small amount drainage. On room air, tolerating liquids well, no emesis. wearing correction restraints. 1 EOCI officer sabaoom
--- NOTE | 2022-05-29 04:13 | NUR ---
Awake, no further c/o abd pain. encouraged to go for a walks and currently walking hallways with COMPLEX MANAGER and EOCI officer.
--- NOTE | 2022-05-29 04:15 | NUR ---
PT IS UP TO AMBULATE HALLWAY, BACK TO ROOM, VS TAKEN, RN TO RM, NO FURTHER NEEDS AT THIS TIME
--- NOTE | 2022-05-29 04:29 | NUR ---
walked twice around nursing station, tolerated well, back to bed. stoma patent. passing ga, stoma bag burped. repositions self in bed, coop with assessment and blood draws. call light and fluids at hands reach
--- NOTE | 2022-05-29 05:01 | NUR ---
Pt on room air, clear lungs at begining of shift, dim at bases at this time. RIJ patent. coop with blood draws. Abd large was distended and firm at begining of shift, very faint bowel tones. Abd more soft, apoorva bowel tones. stoma patent with soft bm, bag has been burped several times. midline abd incision with julius in place. red and warm at base of incision up to 8th staple from the bottom. CDI. bandaiad R low abd over old RUSSELL site. Pt has been medicated with Percocet twice with good pain relief. Has tolerated fluids and diet well. no SCDS as he is wearing correctional restraints. Has walked this shift up and down to nursing station. tolerated well. voiding QS. pleasant and coop, alert and oriented. 1 EOCI officer in room.
--- NOTE | 2022-05-29 09:03 | NUR ---
MORNING ASSESSMENT COMPLETE. PT SITTING UP IN RECLINER. C/O 10/10 ABD PAIN AND GAS. GIVEN PRN PERCOCET AND SIMETHICONE. ACTIVE BOWEL TONES, ABD MODERATELY DISTENDED, 50ML STOOL AND GAS EMPTIED FROM COLOSTOMY BAG. PT DENIES FURTHER NEEDS AT THIS TIME. CALL LIGHT IN REACH.
--- NOTE | 2022-05-29 09:25 | NUR ---
PATIENT HAD NO NEEDS AT THIS TIME. PATIENT ALSO STATED PAIN MEDICATION WAS TAKING EFFECT. CALL LIGHT WITHIN REACH.
--- NOTE | 2022-05-29 10:25 | NUR ---
PT STATES PAIN HAS IMPROVED TO 3/10. STILL FEELING BLOATED. DENIES NEEDS AT THIS TIME. CALL GIL SYKES.
--- NOTE | 2022-05-29 12:57 | NUR ---
PT C/O GAS AND BLOATING. TOLD PT WHEN PRN MEDS ARE DUE WILL BRING. PT AGREEABLE. BOWEL TONES ACTIVE. GAS AND 50ML STOOL EMPTIED FROM COLOSTOMY. PT DENIES FURTHER NEEDS AT THIS TIME. CALL GIL SYKES.
--- NOTE | 2022-05-29 13:24 | NUR ---
PATIENT HAS NOT EATEN LUNCH YET DUE TO HEARTBURN, HAS REQUESTED TO KEEP BY BEDSIDE INCASE HE GETS HUNGRY. NURSE NOTIFIED, CALL LIGHT WITHIN REACH.
--- NOTE | 2022-05-29 14:26 | NUR ---
PATIENT ON A REGULAR DIET. HE SEEMS TO EAT BREAKFAST WELL AND THEN INTAKE DECLINES FOR LUNCH AND DINNER. HEARTBURN IS BOTHERING HIM BUT HE IS GETTING MEDS. ENSURE IS ALWAYS AVAILABLE IF HE DOESN'T EAT SOLID FOOD WELL. WILL CONTINUE TO MONITOR.
--- NOTE | 2022-05-29 15:08 | NUR ---
PT UP FOR WALK AROUND UNIT. C/O GAS AND HEARTBURN. PRN SIMETHICONE GIVEN.
--- NOTE | 2022-05-29 17:08 | NUR ---
PT LYING IN BED, EASILY AWAKENS. UP TO RESTROOM. DENIES NEEDS AT THIS TIME. CALL LIGHTIN REACH.
--- NOTE | 2022-05-29 18:22 | NUR ---
PATIENT HAS COMPLAINTS WITH HEARTBURN. HE IS REQUESTING TO LEAVE HIS FOOD BE LEFT IN CASE HE WANTS MORE. NURSE NOTIFIED. CALL LIGHT WITHIN REACH.
--- NOTE | 2022-05-30 00:25 | NUR ---
call light on, in to check pt's ostomy, urinal emptied
--- NOTE | 2022-05-30 00:31 | NUR ---
ostomy bag assessed and ENVIRONMENTAL MANAGER emptied stool , noted continued serosanguineous drainage to bottom of inscision between two stri strips. incision open 4cm long. 2x2 dressing placed over area for drainage.
--- NOTE | 2022-05-30 05:08 | NUR ---
pt has not attempted to care for colostomy. staff was called to do this take for him. he does use the urinal at bedside. c/o of pain once lastnight for which pain medication was administered.
--- NOTE | 2022-05-30 07:38 | NUR ---
REPORT RECIEVED FROM NIGHT RN - PT RESTING IN BED WATCHING TV. PT DENIES NEEDS AT THIS TIME. CALL LIGHT IN REACH.
--- NOTE | 2022-05-30 07:50 | NUR ---
PATIENT LAYING IN BED WAITING FOR BREAKFAST, HE IS INDEPENDENT IN ROOM AND STATED HE WILL SIT UP WHEN BREAKFAST COMES. DID NOT WANT TO DO MORNING ADLS AT THIS TIME. NOTFIED NURSE. CALL LIGHT WITHIN REACH.
--- NOTE | 2022-05-30 08:34 | NUR ---
RN IN ROOM TO ASSESS PT AND ADMINISTER SCHEDULED MEDS. PT UP ON SIDE OF BED EATING BREAKFAST. PT PARTICIPATED IN EMPTYING OWN OSTOMY BAG - TOLERATED WELL, CONTINUE TO REINFORCE LEARNING FOR THIS, PT STILL UNSURE/UNCOMFORTABLE. INCISION SITE HAS SEROUS DRAINAGE AT LOWER END OF INCISION, 2X2 GAUZE COVERING WHERE YENI WERE REMOVED, OTHERWISE WELL APPROXIMATED WITHOUT SIGN OF INFECTION. PT RATES PAIN 5/10 - REQUESTS PAIN MEDICATION, EMAR TO BE REVIEWED FOR NEXT AVAILABLE. TYRONE IN ROOM NOTIFIED OF SOILED ANKLE RESTRAINTS AND NEED FOR NEW SET TO BE APPLIED, STATES THIS WILL BE DONE THIS MORNING. PT DENIES FURTHER NEEDS, CALL LIGHT IN REACH.
--- NOTE | 2022-05-30 09:44 | NUR ---
PATIENT WAS NOT READY TO ATTEMPT MORNING ADLS YET. PATIENT STATED HE WOULD LET NURSING STAFF KNOW WHEN HE DOES. PATIENT ATE GOOD AMOUNT OF BREAKFAST AND IS RESTING. CALL LIGHT WITHIN REACH.
--- NOTE | 2022-05-30 10:50 | NUR ---
PATIENT REFUSING TO DO AM CARE/ GETTING UP INTO CHAIR AT THIS TIME. PATIENT ALSO REFUSED TO DO OSTEMY CARE CURRENTLY. PROPERTY PRESERVATION SPECIALIST WILL ATTEMPT AGAIN, NO GAS IN OSTEMY. CALL LIGHT WITHIN REACH.
--- NOTE | 2022-05-30 10:56 | NUR ---
RN IN ROOM ROUNDING ON PT - ASLEEP IN BED UPON ENTRY. PT RATES PAIN "UNDER 5" AT THIS TIME AND DENIES NEED FOR PAIN MEDICATION. CALL ERLINDA IN TYRONE SYKES AT SIDE.
--- NOTE | 2022-05-30 11:14 | NUR ---
ASSISTED PATIENT WITH OSTEMY CARE. URINAL EMPTIED WELL. GUARD ASSISTING WITH GOWN CHANGE. CALL LIGHT WITHIN REACH.
--- NOTE | 2022-05-30 11:22 | NUR ---
PT UP AMBULATING IN [place] WITH TYRONE.
--- NOTE | 2022-05-30 13:27 | NUR ---
RN IN ROOM TO ASSESS PT - PT IN BED WATCHING TV WITH TYRONE AT SIDE. 2X2 AT DISTAL END OF MIDLINE INCISION SATURATED, CHANGED WITH MEDIPORE TAPE OVER. PT STATES HE ONLY ATE SOME OF HIS LUNCH R/T GAS PAINS, ENCOURAGED PT TO WALK IN HALLWAY. AGREES. PT DENIES FURTHER NEEDS, CALL LIGHT IN REACH.
--- NOTE | 2022-05-30 14:03 | NUR ---
PATIENT SITTING IN BED. VITALS WERE DONE. NO GAS IN OSTEMY. NO OTHER NEEDS AT THIS TIME. CALL LIGHT WITHIN REACH.
--- NOTE | 2022-05-30 14:27 | NUR ---
PT REQUESTS PAIN MEDICATION FOR 9/10 PAIN AFTER AMBULATING IN HALLWAY. PRN PERCOCET PROVIDED. PT WAS ABLE TO AMBULATE 3 LARGE LAPS - IMPROVEMENT.
--- NOTE | 2022-05-30 16:58 | NUR ---
RN IN ROOM TO ADMINISTER SCHEDULED MEDICATIONS. PT UP IN BATHROOM UPON ENTRY. PT RATES PAIN 4/10, IMPROVED WITH PRN. DENIES FURTHER NEEDS, CALL LIGHT IN REACH. TYRONE AT BEDSIDE.
--- NOTE | 2022-05-30 18:30 | NUR ---
PT SAT UP ON THE SIDE OF THE BED TO HELP ASSIST WITH OSTEMY. HAD NO OTHER COMPLAINTS OR NEEDS AT THIS TIME. VITALS WERE DONE WELL I'S & O'S. CALL LIGHT LEFT WITHIN REACH.
--- NOTE | 2022-05-30 18:35 | NUR ---
RN IN ROOM ROUNDING ON PT - RESTING IN BED WATCHING TV. DENIES NEEDS AT THIS TIME. IJ DRESSING REINFORCED. CALL LIGHT IN REACHTYRONE AT BEDSIDE.
--- NOTE | 2022-05-30 19:39 | NUR ---
REPORT RECEIVED FROM DAY SHIFT RN. PT LYING IN BED ALERT AND ORIENTED. REQUESTS PRN FOR PAIN WHEN AVAILABLE. DENIES FURTHER NEEDS. CALL LIGHT IN REACH. WHITE BOARD UPDATED. GUARD IN ROOM.
--- NOTE | 2022-05-30 20:25 | NUR ---
EVENING ASSESSMENT COMPLETE. SCHEDULED MEDS ADMIN PER EMAR. PT REPORTS ABD PAIN /. PRN FOR PAIN ADMIN PER EMAR. PT DENIES NAUSEA. ABD DISTENDED. BOWEL TONES ACTIVE. SMALL AMOUNT STOOL IN OSTOMY. MIDLINE INCISION WITH STERI STRIPS IN PLACE. DISTAL END OF INCISION COVERED WITH GAUZE. SMALL AMOUNT OLD DRAINAGE NOTED. RIGHT IJ FLUSHED AND HELP LOCKED PER PROTOCOL. BRISK BLOOD RETURN NOTED IN LUMENS X 3. DRESSING INTACT. PT ENCOURAGED TO AMB ONE MORE TIME IN [place] THIS EVENING, WILL DO SO AFTER PAIN MEDS BEGIN TO WORK. PT DENIES QUESTIONS OR CONCERNS. CALL LIGHT IN REACH.
--- NOTE | 2022-05-30 21:04 | NUR ---
PT UP WITH GUARD TO AMB 3 LAPS AROUND NURSING UNIT WITH SBA. LILLIAN WELL.
--- NOTE | 2022-05-30 23:04 | NUR ---
PT AWAKE IN BED. URINAL EMPTIED. CLEAR LIQUID ENSURE PROVIDED. PT REPORTS PAIN IS TOLERABLE. NO NEEDS AT THIS TIME.
--- NOTE | 2022-05-31 02:03 | NUR ---
PT RESTING IN BED WITH EYES CLOSED. RESPIRATIONS EVEN. CALL LIGHT IN REACH.
--- NOTE | 2022-05-31 02:28 | NUR ---
CALL LIGHT ANSWERED. PT REPORTS ABD PAIN 06/24. PRN FOR PAIN ADMIN PER EMAR. PT DENIES NAUSEA. URINAL EMPTIED. OSTOMY WITH SCANT AMOUNT BROWN STOOL. PT DENIES FURTHER NEEDS. RESTRAINES IN PLACE. GUARD IN ROOM. NO FURTHER NEEDS. CALL LIGHT IN REACH.
--- NOTE | 2022-05-31 06:23 | NUR ---
MORNING LABS DRAWN FROM RIGHT IJ PER PROTOCOL. VS AND I&O OBTAINED AND RECORDED. PT REPORTS ABD PAIN IS TOLERABLE. DENIES NAUSEA. SCHEDULED MEDS ADMIN PER EMAR. PT DENIES FURTHER NEEDS. CALL LIGHT IN REACH.
--- NOTE | 2022-05-31 07:39 | NUR ---
PT IN BED THIS MORNING. INDEPENDENT IN ROOM. PT HAD COMPLAINTS OF DRY EYES AND WAS WONDERING ABOUT EYE DROPS. NURSE NOTIFIED. NO OTHER NEEDS AT THIS TIME. CALL LIGHT WITHIN REACH.
--- NOTE | 2022-05-31 07:43 | NUR ---
REPORT RECEIVED FROM NIGHT RN - PLAN OF CARE REVIEWED.
--- NOTE | 2022-05-31 08:43 | NUR ---
RN IN ROOM TO ASSESS PT AND ADMINISTER SCHEDULED MEDS - PT AWAKE AND WATCHING TV. PT RATES PAIN 8/10 CURRENTLY, NOT DUE FOR PAIN MEDS AT THIS TIME. INCISION WITHOUT SIGNS OF INFECTION. OSTOMY BAG IN PLACE AND NOT NEED EMPTIED AT THIS TIME. IJ FLUSHED AND HEP LOCKED X3. DRESSING IN TACT. DISCUSSED POSSIBLE DC WITH PT AND TYRONE, STATES HE IS READY.
--- NOTE | 2022-05-31 09:45 | NUR ---
PT IN BED, VITALS AND I'S & O'S COMPLETED. OSTEMY CARE ALSO COMPLETED. HOWEVER PT NEEDED OSTEMY CARE AGAIN AFTER COMPLETION, WHICH THE PT ENDED UP DOING BY HIMSELF START TO FINISH. SOME COMPLAINTS OF PAIN. NURSE NOTIFIED, CALL LIGHT IN REACH.
--- NOTE | 2022-05-31 10:33 | NUR ---
RN ROUNDING ON PT - PT RESTING IN BED, REQUESTS PRN PAIN MEDICATION FOR 10/10 PAIN - PROVIDED. DENIES FURTHER NEEDS, CALL LIGHT IN REACH.
--- NOTE | 2022-05-31 12:04 | NUR ---
RN IN ROOM TO ROUND ON PT - LUNCH DELIVERED, PT SLEEPING IN BED UPON ENTRY. TYRONE AT BEDSIDE.
--- NOTE | 2022-05-31 14:01 | NUR ---
AFTER SHOWER, VITALS AND I'S & O'S WERE COMPLETED. PATIENT LAYING IN BED. NO NEEDS OR COMPLAINTS OF THIS TIME.
--- NOTE | 2022-05-31 15:37 | NUR ---
RN IN ROOM TO ROUND ON PT - PT RESTING IN BED WATCHING TV UPON ENTRY. ENCOURAGED AMBULATION IN HALLWAY - PT AGREES. ASSESSMENT UNCHANGED. PT COOPERATING IN FULL CARE OF OSTOMY SITE. MIDLINE SHOWS NO SIGN OF INFECTION.
--- NOTE | 2022-05-31 17:19 | NUR ---
bedside report from janusz Mosher rn in the room.
--- NOTE | 2022-05-31 18:15 | NUR ---
PT IN BED RESTING COMFORTABLY. PT EMPTIED OWN OSTEMY, AND HAD NO COMPLAINTS OF PAIN OR OTHER NEEDS AT THIS TIME. VITALS AND I/O'S WERE COMPLETED, CALL LIGHT WITHIN REACH.
--- NOTE | 2022-05-31 19:37 | NUR ---
REPORT RECEIVED FROM DAY SHIFT RN. PT LYING IN BED ALERT AND ORIENTED. DENIES NEEDS. WHITE BOARD UPDATED. CALL LIGHT IN REACH.
--- NOTE | 2022-05-31 21:30 | NUR ---
EVENING ASSESSMENT COMPLETE. SCHEDULED MEDS ADMIN PER EMAR. PT REPORTS ABD PAIN IS TOLERABLE AT THIS TIME. DENIES NAUSEA. MIDLINE ABD INCISION WITH STERI STRIPS INTACT. NO REDNESS OR DRAINAGE NOTED. OSTOMY WITH BROWN DRAINAGE. URINAL EMPTIED OF 250 ML CONCENTRATED URINE. PT ENCOURAGED TO INCREASE PO INTAKE. CLEAR LIQUID ENSURE AND ICE WATER PROVIDED. PT UP TO AMB IN [place] WITH GUARD. WRIST RESTRAINTS IN PLACE.
--- NOTE | 2022-05-31 23:30 | NUR ---
PT REPORTS ABD PAIN 05/24. PRN FOR PAIN ADMIN PER EMAR. URINAL EMPTIED. PT EMPTIED OSTOMY INDEPENDENTLY. NO FURTHER NEEDS.
--- NOTE | 2022-06-01 00:49 | NUR ---
PT RESTING IN BED WITH EYES CLOSED. RESPIRATIONS EVEN. CALL LIGHT IN REACH.
--- NOTE | 2022-06-01 02:59 | NUR ---
PT RESTING IN BED WITH EYES CLOSED. RESPIRATIONS EVEN. CALL LIGHT IN REACH.
--- NOTE | 2022-06-01 05:33 | NUR ---
VS AND I&O COMPLETE. SCHEDULED MEDS ADMIN PER EMAR. PRN FOR 5/10 ABD PAIN ADMIN. PT DENIES NAUSEA. MIDLINE ABD INCISION WITH STERI STRIPS INTACT. DISTAL END OF MIDLINE INCISION, APPROX 4CM, NOT WELL APPROXIMATED. 2X2 PLACED WITH MEDIPORE TAPE. OSTOMY WITH BROWN OUTPUT. VOID QS. CLEAR LIQUID ENSURE PROVIDED. PT DENIES FURTHER NEEDS. CALL LIGHT IN REACH.
--- NOTE | 2022-06-01 07:30 | NUR ---
THIS RN RECEIVED SHIFT REPORT FROM ALBINO MARTIN. PATIENT RESTING QUIETLY IN BED WITH OFFICER AT [facility]. PATIENT DENIES ANY CARE NEEDS AT THIS TIME. CALL LIGHT IS IN REACH.
--- NOTE | 2022-06-01 08:20 | NUR ---
PATIENT UP IN THE BEDSIDE ARMCHAIR AWAITING BREAKFAST. AM ASSESSMENT COMPLETE AND AM MEDS GIVEN. PATIENT IS COMFORTABLE WITH PAIN AT 3/10 IN HIS ABD. ATIENT DENIES ANY NAUSEA AND DENIES ANY OTHER CARE NEEDS AT THIS TIME. CALL LIGHT IS IN REACH AND UTILITIES OPERATOR AT BEDSIDE. BREAKFAST HAS ARRIVED AND SET UP FOR PATIENT TO EAT.
--- NOTE | 2022-06-01 09:50 | NUR ---
HERE SEEING PATIENT'S. THIS RN INFORMED HIM PATIENT HAS ABOUT 1.5INCH AREA AT THE BOTTOM OF HIS MIDLINE THAT IS NOT TOTALLY APPROXIMATED AND ASKED IF HE COULD TAKE A LOOK AT IT. VERBLAIZED UNDERSTANDING AND WILL LOOK IN ON THE PATIENT.
--- NOTE | 2022-06-01 10:22 | NUR ---
PATIENT RESTING QUIETLY IN BED WITH OFFICER IN CHAIR AT BEDSIDE. TIA, INSURANCE CLERK IN RROM DOING VS AND I+O. PATIENT HAS NO CARE NEEDS FROM THIS RN AT THIS TIME. CALL LIGHT TINA SYKES.
--- NOTE | 2022-06-01 11:26 | NUR ---
THIS RN IN TO SEE PATIENT. PATIENT WAS JUST UP TO THE BATHROOM AND HIS ABD PAIN IS 8/10. 2 PO PERCOCET GIVEN ALONG WITH 11AM MED. OFFICER REMAINS AT BEDSIDE. CALL LIGHT IN REACH. PATIENT HAS NO OTHER CARE NEEDS AT THIS TIME.
--- NOTE | 2022-06-01 12:28 | NUR ---
PATIENT'S PAIN IS BACK TO A COMFORTABLE LEVEL FOR HIM 01/22. PATIENT SAYS HE WILL PROBABLY BE ASLEEP IN A COUPLE MINUTES. PATIENT DENIED ANY CARE NEEDS AT THIS TIME. LUNCH TRAY TAKE OUT. CALL LIGHT IN REACH. OFFICER REMAINS AT BEDSIDE.
[2022-06-01] MEDS ORDERED: SULFAMETHOXAZO1 EAC1 PO (13:19)
[2022-06-01] MEDS ORDERED: ACETAMINOPHEN500 MG PO (13:20)
[2022-06-01] MEDS ORDERED: MAG-AL LIQUID30 ML PO (13:20)
[2022-06-01] MEDS ORDERED: GAS RELIEF125 M1 PO (13:20)
[2022-06-01] MEDS ORDERED: CALCIUM CARBON200 MG PO (13:20)
[2022-06-01] MEDS ORDERED: OXYCODON-ACETA1 EAC2 PO (13:20)
--- NOTE | 2022-06-01 13:20 | NUR ---
Notified by staff, pt will dc today. Copied order form from [facility]. Called Mandy at [facility]. UPdated pt will dc today. She requested progress note sent to her and orders and all notes faxed to the [facility] and to notify them. Called and spoke [facility] in [facility]. She states they currently do not have a bed. Let her know we are awaiting medication instructions from the pharm. They have not received their ostomy supplies, let them know we will send enough for 2 ostomy changes. Faxed orders, progress notes, and info from the pharmacy. Notified shortly by our staff, they now have a bed available for the pt and he may discharge.
[2022-06-01] MEDS ORDERED: SUCRALFATE1 GM PO (13:21)
[2022-06-01] MEDS ORDERED: METRONIDAZOLE250 MG PO (13:21)
[2022-06-01] MEDS ORDERED: WARFARIN SODIUM2 MG PO (13:25)
--- NOTE | 2022-06-01 14:10 | NUR ---
PATIENT DC'D BACK TO [facility] WITH CORRECTIONS OFFICERS. EXTRA OSTOMY SUPPLIES SENT WITH OFFICERS. WRITTEN INFORMATION ALSO SENT BACK WITH OFFICERS. VS STABLE ON DC. PATIENT HAD HIS IV ACCESS DC'D YESTERDAY. PATIENT AMBULATORY, BUT TO FRONT OF THE HOSPITAL BY WHEELCHAIR. THIS RN CALLED REPORT TO [facility] NURSE TAZ. COUMADIN AND FLAGYL DOSE GIVEN BEFORE DC.
--- NOTE | 2022-06-03 14:24 | DS ---
[facility] [address], [place] [address] Signed ADMISSION DATE: 05/17/2022 DISCHARGE DATE: 06/01/2022 REASON FOR ADMISSION: Abdominal pain, fever, and sepsis. HISTORY: This moprbidly obese white man whos is a prisoner at [facility] was directly admitted to the service of Dr. Arreola, the hospitalist. The patient was noted for four weeks previously to have acute onset of generalized abdominal pain, moderate to severe in grade. He had been experiencing frequent chills lasting several hours as well as diaphoresis. He has had a bit of hypotension as well and had been somewhat oliguric. His prior history of COPD was noted and prediabetes. Evaluation by Dr. Arreola confirmed him to have diverticulosis on CT scan without acute diverticulitis, but he was considered to have severe sepsis of unknown etiology at the time of admission. This was manifest by hypotension, leukocytosis and elevated lactic acid with acute kidney injury. Elevated liver enzymes were noted as well. PERTINENT PHYSICAL EXAMINATION: At time of admission showed, GENERAL: A very obese white man who looks to be in distress. He was cooperative. ABDOMEN: He had bilateral lower abdominal tenderness and voluntary guarding noted. He had no rigidity generally. CHEST: No findings of respiratory distress or accessory muscle use. Breath sounds were equal and clear. Extremities: with no sx of edema or tenderness. LABORATORY STUDIES: Normal electrolytes, creatinine of 2.21, white count of 21.9, hematocrit 37.9, and platelets of 430,000. lactic acid 2.6 HOSPITAL COURSE: He was admitted and given broad-spectrum antibiotics. A CT scan was performed showing hepatic fluid collections in the medial segment of the left lobe of the liver. The largest 1.5 cm in size. Case was discussed with the on-call surgeon, Dr. Pal, who recommended a tertiary medical center transfer. Conservative therapy with antibiotics was recommended for diverticulitis and a repeat CT of the abdomen to assess for possible metastatic lesions to the liver. Review with hepatobiliary surgeon in [facility] was also recommended and performed. In the absence of larger hepatic abscess fluid collection, antibiotic therapy was to be the Electronically Signed By: KIMBERLEY HOLLAND MD 06/03/22 1424 PATIENT NAME: CHELE CERVANTES DISCHARGE SUMMARY DATE OF : 60 REPORT #: [id number] PHYSICIAN: KIMBERLEY HOLLAND MD PCP: JAMAR LYNCH MD REPORT IS CONFIDENTIAL AND NOT TO BE RELEASED WITHOUT AUTHORIZATION [facility] [address], [place] [address] Signed main treatment. The patient was considered relatively immunocompromised based on the methotrexate therapy he takes for underlying pulmonary disease. A CT scan had shown left port vein thrombosis and some portal vein thrombosis as well and anticoagulation with systemic heparin was considered. The patient had ongoing abdominal pain despite broad-spectrum antibiotics and surgical consultation was undertaken with myself (Kimberley Holland MD). The patient was considered to have worsening of his abdominal distention and marked tenderness and although white count was not elevated; clearly progression of his underlying problem was present . A CT scan scan was repeated, which demonstrated portal vein thrombosis, probable metastatic abscess formation in the medial segment left lobe of the liver with underlying colonic diverticulitis and free air, suggestive of perforation of the colon. The patient remained hemodynamically stable. The right colon had some air, but was not massively distended and on the basis of his symptoms and findings on the 2nd CT scan, recommendation was made for emergency laparotomy. On May 20, 2022, he underwent a midline laparotomy as well as placement of a right internal jugular central venous catheter. Laparotomy allowed for drainage of the left lower quadrant intraabdominal abscess as well as sigmoid colectomy for perforated diverticulitis. End colostomy and Zuhair's pouch were undertaken as well as mobilization of splenic flexure. He underwent peritoneal lavage and placement of drains x2 (left pericolic gutter and pelvis) and and explantation of a small portion of abdominal wall mesh. The operation was prolonged and difficult on the basis of his morbid obesity and challenging aspect of passage of the end colostomy through the thick abdominal wall pannus. The patient remained intubated postoperatively given the late hour for which operation was completed. The patient was able to be extubated the following day, was maintained in the intensive care unit on broad-spectrum antibiotics including Zosyn and Flagyl for perforated diverticulitis with pelvic abscess and multiple microabscesses of the liver. A Valdez catheter and nasogastric tube were allowed to remain in place and the ostomy appeared viable. Mindful of his left portal vein thrombosis and main portal vein partial thrombosis but needing to avoid extensive anticoagulation given the extent of operation he was maintained on Lovenox subcutaneously administered. He had prompt resumption of bowel function including passage of stool into the ostomy. Based on cultures showing E coli, his antibiotics were adjusted to Rocephin and Flagyl as he did have intermediate resistance to Zosyn which had been given. He tolerated liquids well and was advanced in his diet over time. He was transferred to the medical-surgical esqueda after Electronically Signed By: KIMBERLEY HOLLAND MD 06/03/22 1424 PATIENT NAME: CHELE CERVANTES DISCHARGE SUMMARY DATE OF : 60 REPORT #: [id number] PHYSICIAN: KIMBERLEY HOLLAND MD PCP: JAMAR LYNCH MD REPORT IS CONFIDENTIAL AND NOT TO BE RELEASED WITHOUT AUTHORIZATION [facility] [address], [place] [address] Signed stabilization. He had a fair amount of significant gastroesophageal reflux for which various interventions were undertaken. The ostomy appeared viable. He had progressive recovery ultimately allowing for removal of his nasogastric tube, the Valdez catheter, and his drains. Lovenox, which had been initiated for treatment of the portal vein thrombosis was transitioned ultimately to Coumadin. He had prompt increase of his ProTime and INR for which dosage adjustment ultimately was undertaken and a baseline dose at 2 mg daily was considered most appropriate. His antibiotic regimen was changed based on cultures to include Bactrim and Flagyl. Close inspection of his ostomy showed it to be completely viable without sign of mucocutaneous separation. By day of discharge, he is ambulating well, tolerating a regular diet, has good control of underlying reflux problems, good function of the ostomy and is voiding well. The lower part of the incision has some skin separation following clip removal, but does not appear to be significant separation and unlikely to indicate wound infection. MEDICATION WILL INCLUDE: 1. Bactrim DS one tablet p.o. b.i.d. #10. 2. Flagyl 250 mg p.o. t.i.d. #15. 3. He will additionally have oxycodone 7.5/325; 1-2 p.o. q.6 hours as needed for pain #10. 4. Tylenol 500 mg two tablets p.o. q.6 hours as needed, #60. 5. Tums tablets one p.o. b.i.d. with meals. 6. Magnesium hydroxide (Maalox) 30 mL q.4 hours as needed. 7. Simethicone 125 mg two p.o. q.i.d. as needed for heartburn. 8. Carafate 1 g p.o. at bedtime #90, refill 3. 9. Coumadin 2 mg tablets daily. As regards to Coumadin dosing, he will have a ProTime checked every three days. If the INR is greater than 3.5, he will hold the dose. The goal of INR is 2.5-3.5. If the INR is less than 2.5, the staff will call for further directions as to dosing and if more than 3.5, the dose should be held and call given as well. 10. He will continue his usual medication of omeprazole 20 mg p.o. daily, montelukast, Singulair 10 mg daily, and albuterol 1-2 puffs q.4 hours as needed. 11. Vitamin D 50 mcg p.o. daily. 12. Methotrexate 2.5 mg tablets 15 mg weekly on Wednesday. 13. Clobetasol propionate lotion as needed to skin as appropriate. 14. Incruse Ellipta 62.5 mcg actuation blast one inhalation daily. 15. Dovonex 0.005% topically daily. 16. Folic acid 0.4 mg tablet daily. Electronically Signed By: KIMBERLEY HOLLAND MD 06/03/22 1424 PATIENT NAME: CHELE CERVANTES DISCHARGE SUMMARY DATE OF : 60 REPORT #: [id number] PHYSICIAN: KIMBERLEY HOLLAND MD PCP: JAMAR LYNCH MD REPORT IS CONFIDENTIAL AND NOT TO BE RELEASED WITHOUT AUTHORIZATION [address] [address] Signed 17. He was discontinued celecoxib. DISCHARGE DIAGNOSES: 1. Perforated diverticulitis with peridiverticular abscess. 2. Portal vein thrombosis, likely related to diverticulitis. 3. 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 4. Morbid obesity. 5. Reactive airways disease (complicated). 6. Gastroesophageal reflux. FOLLOW-UP PLANS: I will see patient back in the assisted clinic on my next visit. Ongoing colostomy care will be anticipated as previously. If the patient has issues, I am able to assist via the phone in the meantime. MD KALPANA Caro/CARLOS /[id number] cc: MD Jonny Savage FNP Copies: ESTHELA ARREOLA MD, MICHELE R FNP ~ Electronically Signed By: KIMBERLEY HOLLAND MD 06/03/22 1424 PATIENT NAME: CHELE CERVANTES DISCHARGE SUMMARY DATE OF : 60 REPORT #: [id number] PHYSICIAN: KIMBERLEY HOLLAND MD PCP: JAMAR LYNCH MD REPORT IS CONFIDENTIAL AND NOT TO BE RELEASED WITHOUT AUTHORIZATION
== END 2022-06-01 14:10 | disposition home or self-care (01) | DRG 853 ==
LOC: ED 12:43 → CCU 18:16 → MS 05-25 22:39
PROVIDERS: ADMIT Internal Medicine; ATTEND Internal Medicine
PROC: 3E03329 Introduction of Other Anti-infective into Peripheral Vein, Percutaneous Approach (ICD-10-PCS; 2022-05-17)
PROC: 0DBN0ZZ Excision of Sigmoid Colon, Open Approach (ICD-10-PCS; principal; 2022-05-20)
PROC: 0W9G00Z Drainage of Peritoneal Cavity with Drainage Device, Open Approach (ICD-10-PCS; 2022-05-20)
PROC: 0DSN0ZZ Reposition Sigmoid Colon, Open Approach (ICD-10-PCS; 2022-05-20)
PROC: 07BD0ZZ Excision of Aortic Lymphatic, Open Approach (ICD-10-PCS; 2022-05-20)
DX: A41.51 Sepsis due to Escherichia coli [E. coli] (principal); I81 Portal vein thrombosis; I82.0 Budd-Chiari syndrome; K75.0 Abscess of liver; K65.0 Generalized (acute) peritonitis; K65.1 Peritoneal abscess; N17.9 Acute kidney failure, unspecified; K57.20 Diverticulitis of large intestine with perforation and abscess without bleeding; E87.2 Acidosis; I47.1 Supraventricular tachycardia; R65.20 Severe sepsis without septic shock; J43.9 Emphysema, unspecified; Z20.822 Contact with and (suspected) exposure to COVID-19; L40.9 Psoriasis, unspecified; I95.9 Hypotension, unspecified; E66.01 Morbid (severe) obesity due to excess calories; K21.9 Gastro-esophageal reflux disease without esophagitis; R73.03 Prediabetes; Z68.31 Body mass index [BMI] 31.0-31.9, adult; Z87.891 Personal history of nicotine dependence; Z98.890 Other specified postprocedural states; Z79.899 Other long term (current) drug therapy
CPT/HCPCS: 36415; 36600; 51702; 71045; 74018; 74022; 74176; 74177; 80048; 80053; 80074; 80076; 81001; 82803; 83605; 83690; 83735; 84100; 85025; 85060; 85610; 85730; 86140; 87040; 87070; 87075; 87205; 87502; 93005; 93010; 93306; 94002; 94640; 94667; 94668; 94760; A9270; C9113; C9803; J0131; J0330; J0696; J0780; J1100; J1160; J1644; J1650; J1720; J1885; J1940; J2250; J2270; J2405; J2543; J2704; J2765; J3010; J3475; J3480; J7030; J7121; P9047; Q9967; U0003

== ENCOUNTER 2023-03-11 07:05 | Day surgery (SDC) | payer OTHER ==
[~2023-03-11 07:05] MED LIST changes: +ACETAMINOPHEN500 MG PO; +CALCIUM CARBON200 MG PO; +CELEBREX100 MG PO; +CLOBETASOL PROP59 ML TOP; +DOVONEX60 GM TOP; +FOLIC ACID0.4 MG PO; +GAS RELIEF125 M1 PO; +INCRUSE ELLI62.5 MCG INH; +MAG-AL LIQUID30 ML PO; +METHOTREXA25 MG/1 M3 SUB-Q; +METRONIDAZOLE250 MG PO; +OXYCODON-ACETA1 EAC2 PO; +SINGULAIR10 MG PO; +SUCRALFATE1 GM PO; +SULFAMETHOXAZO1 EAC1 PO; +VITAMIN D250 MC1 PO; +WARFARIN SODIUM2 MG PO
[2023-03-11 07:26] VITALS: BP 103/79
--- NOTE | 2023-03-11 10:07 | NUR ---
03/11/23 Charley Rice 1001-PATIENT ARRIVED TO PACU ON 5L OXYMASK REACTIVE TO VERBAL STIMULI OPENING EYES. DENIES PAIN OR NAUSEA. IVF INFUSING. PLACED ON 4L NC. PATIENT HAS OSTOMY BAG IN PLACE.
[2023-03-11 10:40] VITALS: BP 101/70
--- NOTE | 2023-03-11 17:37 | OR ---
[facility] [address], [place] [address] Signed DATE OF OPERATION: 03/11/2023 SURGEON: Kimberley Holland MD PREOPERATIVE DIAGNOSES: History of Zuhair's procedure; perforated diverticulitis with multiple comorbid issues (portal vein thrombosis, hepatic abscesses). POSTOPERATIVE DIAGNOSES: 1. History of Zuhair's procedure; perforated diverticulitis with multiple comorbid issues (portal vein thrombosis, hepatic abscesses). 2. Normal-appearing colon except for a few scattered diverticula. 3. Mild diversion proctitis and some retained stool of rectal stump. PROCEDURES: 1. Total colonoscopy to cecum via end colostomy. 2. Flexible proctoscopy. ANESTHESIA: Fentanyl 100 mcg and Versed 6 mg. INDICATION: This 62-year-old white man underwent operation by me on May 20, 2022. He was noted to have perforated diverticulitis with abscess, portal vein thrombosis, hepatic abscesses and significant sepsis at that time. He has recovered fully from that including a CT scan more recently performed showing resolution of portal vein thrombosis and no evidence of hepatic abscesses. He did develop a bit of a peristomal hernia on the left side, is now anticipating takedown of the colostomy. Colonoscopy has been recommended to assure there is no proximal lesion of the colon and the rectum is free of disease as well. The risk of bleeding, infection, and perforation related to endoscopic evaluation was reviewed in detail. He understands and wished to proceed. FINDINGS: The prep of the proximal colon was excellent. Complete colonoscopy was undertaken of the cecum. There were a few scattered diverticula but no polyps or cancer. Flexible proctoscopy was attempted. There was some mild diversion proctitis, but retained stool was noted and complete exam is not assured as of yet. DESCRIPTION OF PROCEDURE: The patient was brought to the endoscopy suite and placed in the supine position. He Electronically Signed By: KIMBERLEY HOLLAND MD 03/11/23 1737 PATIENT NAME: CHELE CERVANTES OPERATIVE REPORT DATE OF : 60 REPORT #: [id number] PHYSICIAN: KIMBERLEY HOLLAND MD PCP: LUDY BRAND REPORT IS CONFIDENTIAL AND NOT TO BE RELEASED WITHOUT AUTHORIZATION [facility] [address], [place] [address] Signed was given intravenous sedation to the point of slurred speech and nystagmus with full cardiopulmonary monitoring. The ostomy appliance was removed. An Olympus video colonoscope was passed into the ostomy and manipulated throughout the colon ultimately intubating the cecum itself and excellent prep was noted. The scope was withdrawn from that point and examination throughout showed no sign of abnormality other than a few scattered diverticula in the distal portion. With frog-like position, digital rectal examination was undertaken showing no rectal mass and the Olympus colonoscope was then passed into the rectum and manipulated part way in where there was some retained stool and mild diversion proctitis noted. Various manipulations were unsuccessful including the rectum entirely and further attempts were discontinued. He was taken to the recovery room in good condition having suffered no complication. CONCLUDING DIAGNOSIS: No contraindication to takedown of the colostomy. This is anticipated to be performed tomorrow so as to take advantage of the bowel prep he had today. Rigid proctoscopy will be undertaken prior to surgical management tomorrow and two fleets enemas will be recommended to be taken today at the [facility]. Kimberley Holland MD JM/MODL /[id number] cc: JOHANNA Solis Copies: ~ Electronically Signed By: KIMBERLEY HOLLAND MD 03/11/23 1737 PATIENT NAME: CHELE CERVANTES OPERATIVE REPORT DATE OF : 60 REPORT #: [id number] PHYSICIAN: KIMBERLEY HOLLAND MD PCP: LUDY BRAND REPORT IS CONFIDENTIAL AND NOT TO BE RELEASED WITHOUT AUTHORIZATION
== END 2023-03-11 10:45 | disposition home or self-care (01) ==
LOC: OPS 07:05 → DS 07:05 → OPS 10:45
PROVIDERS: ATTEND Surgery
DX: K57.30 Diverticulosis of large intestine without perforation or abscess without bleeding (principal); K62.89 Other specified diseases of anus and rectum; K57.20 Diverticulitis of large intestine with perforation and abscess without bleeding; I81 Portal vein thrombosis; K75.0 Abscess of liver; K43.5 Parastomal hernia without obstruction or gangrene; E66.01 Morbid (severe) obesity due to excess calories; Z93.3 Colostomy status
CPT/HCPCS: 99153; G0500; J2250; J3010; J7121

== ENCOUNTER 2023-03-12 06:38 | Observation (INO) | payer OTHER ==
[~2023-03-12] VITALS: Ht 182.9 cm; Wt 112.3 kg
[2023-03-12 07:17] VITALS: BP 105/69
--- NOTE | 2023-03-12 14:31 | NUR ---
03/12/23 1431 Vidhi Marie 1424- PT ARRIVES TO PACU NONAROUSABLE TO STIMULI WITH AN OPA IN PLACE. RESP EVEN AND UNLABORED. OXYGEN SAT HIGH 90'S TO 100% ON 6L VIA MASK. PT'S HEAD OF BED SLIGHTLY ELEVATED. PT HAS ANKLE CUFFS IN PLACE. SKIN INTACT. SOCKS IN BETWEEN SKIN AND ANKLE CUFFS. BUS TROLLEY AND TAXI INSTRUCTOR AT THE BEDSIDE. PT HAVING OCCASIONAL PAC'S, AIX SYSTEM ADMINISTRATOR AWARE.
--- NOTE | 2023-03-12 15:40 | NUR ---
PT ARRIVED FROM PACU VIA BED WITH ALBINO SANTIAGO AND ALBINO WEINSTEIN. PT WAS DROWSY, BUT WOKE TO VOICE. VITAL SIGNS TAKEN. REPORT RECIEVED FROM ALBINO SANTIAGO. PT LEFT ON 2L O2 DUE TO SLIGHT APNIC EPISODES WHILE SLEEPING. MAINTAINING O2 IN HIGH 90S ON 2L. PT IS ON CPOX. PT ONLY COMPLAINT IS "NEED TO PEE" DESPITE MOTT IN PLACE. ADVANCED MOTT SLIGHTLY TO RELIEVE PRESSURE. PT HAS RUSSELL DRAIN ON LEFT SIDE. HE HAS A MIDLINE INCISION WITH YENI AND STOMA SITE WITH STICHES AND A STAPLE. THERE IS SLIGHT SHADOWING ON DRESSINGS, OUTLINED. PAMELA REPORTED NO NEW DRAINAGE FROM WHEN SHE GOT HIM. PT HAS ANKLE RESTRAINTS IN PLACE. GUARD IN ROOM WITH HIM.
[2023-03-12 16:14] VITALS: BP 127/68
[2023-03-12 17:24] VITALS: BP 119/70
--- NOTE | 2023-03-12 17:27 | NUR ---
PT IS RESTING. HE REPORTS HE IS "STARTING TO FEEL IT". HE IS READY TO TRY CLEAR LIQUIDS, TRAY DELIVERED.
--- NOTE | 2023-03-12 19:23 | NUR ---
PT ARRIVED TO FLOOR FROM OR. PT IS TOLERATING CLEARS WELL. DENIES PAIN. HE HAS BEEN APROPRIATE FOR ME. MOTT CATH IN PLACE. RUSSELL ON LEFT SIDE. HE HAS NOT BEEN OUT OF BED.
--- NOTE | 2023-03-12 19:28 | NUR ---
Received bedside report from offgoing shift, hourly rounding initiated.
[2023-03-12 20:10] VITALS: BP 116/60
--- NOTE | 2023-03-12 21:57 | NUR ---
IN PT ROOM FOR ROUNDING, MEDICATION ADMINISTRATION, ASSESSMENT. PT HSA OFFICER AT BEDSIDE, NO COMPLAINT OF PAIN AT THIS TIME. PT IS MEDICAITON COMPLIANT, CALL LIGHT IN REACH.
--- NOTE | 2023-03-12 23:52 | NUR ---
IN PT ROOM FOR ROUNDING. PT RESTING ON BACK, HOB SLIGHTLY ELEVATED, OFFICER AT BEDSIDE. PT WATCHING TV, DENIES COMPLAINT OF PAIN, CALL LIGHT IN REACH
--- NOTE | 2023-03-13 00:37 | NUR ---
IN PT ROOM FOR ROUNDING.PT REQUESTING PAIN MEDICATION, ADMINISTERED, EDUCATED ON POSITIONING FOR EASE OF PASSING GAS. PT HAS OFFICER AT BEDSIDE, CALL LIGHT IN REACH
--- NOTE | 2023-03-13 01:36 | NUR ---
In pt room for rounding. Pt resting on back with eyes closed, breathing even and unlabored. Pt has officer at the bedside, no complaint of pain or discomfort, call light in reach.
[2023-03-13 01:38] VITALS: BP 10/60
--- NOTE | 2023-03-13 02:55 | NUR ---
IN pt room for rounding. Pt resting on back, eyes closed, breathing even and unlabored, Officer at bedside, call light in reach
--- NOTE | 2023-03-13 04:36 | NUR ---
in pt room for VS, medication administration. Pt resting on back, breathing evne and unlabored. Pt has no further complaint, officer at bedside.
[2023-03-13 04:44] VITALS: BP 101/61
--- NOTE | 2023-03-13 07:26 | NUR ---
RECIEVED BEDSIDE REPORT FROM ALBINO AARON. PT IS SLEEPING WITH RESTRAITS IN PLACE. BREATHING EVEN AND UNLABORED. WAKES TO VOICE. GUARD IN ROOM. NOC RN REPORTED NO CHANGES OVERNIGHT, MINOR DISCOMFORT IN LOWER ABDOMEN, EXPLAINED FUNCTION RETURNING TO GI SYSTEM. PT VERBALIZED UNDERSTANDING.
[2023-03-13 10:28] VITALS: BP 101/59
--- NOTE | 2023-03-13 11:48 | NUR ---
PT IS STANDING AT BEDSIDE. REPORTS CHANGE IN POSITION HAS REDUCED PAIN IMMENSELY. HE DENIED LIGHTHEADEDNESS, WEAKNESS, INCREASED PAIN, OR FATIGUE. WHILE HE WAS OUT OF BED, BED LINENS WERE CHANGED. PAIN IS "GAS" TYPE PAIN ACROSS ABDOMEN. HE IS BURPING. NO NEEDS AT THIS TIME.
--- NOTE | 2023-03-13 12:17 | NUR ---
PT IS UP WALKING WITH GUARD. DR HOLLAND ROUNDED AND IS PLEASED WITH PROGRESS.
--- NOTE | 2023-03-13 12:18 | NUR ---
MOTT REMOVED DUE TO PAIN AND DISCOMFORT. PER DR HOLLAND, ENSURE HE IS VOIDING WITHIN 4 HOURS. EXPLAINED TO PATIENT AND HE IS IN AGREEMENT, HE WILL "GET FLUIDS". HE ATTEMPTED TO VOID WITH SCANT AMOUNT, BUT STATES HE FEELS MUCH BETTER.
[2023-03-13 13:03] VITALS: BP 105/66
--- NOTE | 2023-03-13 14:50 | NUR ---
PT WAS UP WALKING ADDITIONAL LAPS WITH THE GUARD. REPORTED HE FEELS MUCH BETTER.
--- NOTE | 2023-03-13 16:19 | NUR ---
PATIENT WALKED A SHORT LAP AROUND MED SURG. WITH CURTAINS AND DRAPERIES SALESPERSON.
--- NOTE | 2023-03-13 18:21 | NUR ---
REMOVED MOTT CATHETER. PT HAS VOIDED SMALL AMOUNTS, HAS HAD SMALL BM. REMOVED CPOX. CONTINUED IV FLUIDS. PT HAS BEEN UP WALKING IN THE HALLS, MAY HAVE DONE TOO MUCH AND IS PAINFUL. DR HOLLAND WANTS TO LIMIT NARCOTICS DUE TO BOWEL ISSUES. PT IS GETTING MORE ANXIOUS ABOUT HIS PAIN, RUSSELL DRAIN, THINKS "SOMETHING IS REALLY WRONG". FELT MUCH BETTER AFTER GETTING UP TO MOVE.
[2023-03-13 18:22] VITALS: BP 107/68
--- NOTE | 2023-03-13 19:25 | NUR ---
RECEIVED REPORT FROM DAY NURSE. PT IS A/O, RESPIRATIONS EVEN AND REGULAR. IV FLUIDS RUNNING. PT DENIES NEEDS/COMPLAINTS ATT. OFFICER AT BEDSIDE.
--- NOTE | 2023-03-13 20:08 | NUR ---
PT ASSESSMENT AND MEDICATION ADMINISTRATION COMPLETED. PT IS A/O, RESPIRATIONS EVEN AND REGULAR. C/O PAIN 06/24. OFFICER REMAINS AT BEDSIDE.
--- NOTE | 2023-03-13 20:18 | NUR ---
PRN DILAUDID ADMINISTERED FOR PAIN RATING 8/10. PT WAS ABLE TO AMBULATE TO BATHROOM AND VOID 200ML. CALL LIGHT WITHIN REACH.
--- NOTE | 2023-03-13 21:49 | NUR ---
ROUNDED ON PT. PT STATES PAIN HAS DECREASED. COMPLAINING OF ISSUES WITH GERD AND STATES HE NORMALLY TAKES DAILY MEDICATION FOR IT. PT WAS GIVEN IV FAMOTIDINE SCHEDULED. WILL CONTINUE TO MONITOR.
--- NOTE | 2023-03-13 22:09 | NUR ---
PT REQUESTED RUSSELL DRAIN TO BE EMPTIED, 40ML EMPTYIED. NEW BAG OF IV LR HUNG. OFFICER AT BEDSIDE.
[2023-03-13 22:40] VITALS: BP 98/53
--- NOTE | 2023-03-14 00:42 | NUR ---
Pt c/o pain 08/24. Toradol administered. While in room pt ambulated to restroom and had large amount of flatulus and was able to void. RUSSELL drain emptied. Pt abdomen remains distended but with each flatulus and void reports feeling better. Guard remains at bedside. IV fluids running. Call light within reach.
--- NOTE | 2023-03-14 01:45 | NUR ---
PT ASSESSMENT COMPLETED. PT ABDOMEN REMAINS DISTENDED AND FIRM WITH NO CHANGES FROM START OF SHIFT. DRESSINGS INTACT AND NO INCREASE IN SHADOWING. RUSSELL DRAIN INTACT. OFFICER REMAINS AT BEDSIDE.
[2023-03-14 05:41] VITALS: BP 135/81
--- NOTE | 2023-03-14 05:50 | NUR ---
PT VS, I/O'S COMPLETED. SMALL INCREASE IN SHADOWING TO LEFT GAUZE DRESSING. PT CONTINUES TO BE DISTENDED, TENDER, AND C/O PAIN. PASSING FLATULUS. STATES THAT STANDING HELPS WITH PAIN. OFFICER REMAINS AT BEDSIDE.
--- NOTE | 2023-03-14 06:24 | NUR ---
PRN PAIN MEDICATION ADMINISTERED FOR PAIN RATING 8/10.
--- NOTE | 2023-03-14 07:27 | NUR ---
ASSUMING CARE OF PT. RECEIVED REPORT FROM MARCE POSADA. PT RESTING IN BED. TWO [employer] OFFICERS AT BEDSIDE.
--- NOTE | 2023-03-14 08:10 | NUR ---
MORNING ASSESSMENT COMPLETED. PT EDUCATED ON IMPORTANCE OF WALKING AND USING LIMITED PAIN MEDICATION TO PREVENT CONSTIPATION. PT VERBALIZED UNDERSTANDING. PT LUNG SOUNDS CLEAR, BOWEL TONES ACTIVE, HEART SOUNDS STRONG. PT HAS LR @ 85ML/HR. RUSSELL EMPTIED THIS AM. CALL LIGHT WITHIN REACH.
[2023-03-14 09:01] VITALS: BP 157/85
--- NOTE | 2023-03-14 09:27 | NUR ---
WARM WASH CLOTH GIVEN TO PT WELL TOOTHBRUSH. PT DENIES BEDBATH AT THIS TIME, ASKING TO COMPLETE IT LATER HE IS TIRED FROM WALKING TWO LAPS WITH [employer] OFFICER.
--- NOTE | 2023-03-14 10:40 | NUR ---
IN ROOM TO CHECK ON PT FOR BEDBATH. PT DENIES BEDDATH AT THIS TIME, STATING HE WANTS ONE LATER IN THE AFTERNOON.
--- NOTE | 2023-03-14 11:07 | NUR ---
IN ROOM TO CHECK ON PT, PAIN MEDICATION PROVIDED PER PT REQUEST. PT STANDING AT BEDSIDE. PT HAD BM AND PASSING GAS AND BURPING. PT HAS CALL LIGHT WITHIN REACH.
--- NOTE | 2023-03-14 12:11 | OR ---
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 PROCEDURES: 1. Takedown of colostomy; including partial colectomy with side-to-end coloproctostomy and mobilization of splenic flexure, prolonged complicated difficult. 2. Rigid proctoscopy. 3. Omental pedicle graft anastomotic site. ANESTHESIA: General endotracheal; Oj Siemens, BODY COMPONENT ENGINEER and bilateral tap blocks. HISTORY: This 62-year-old white man is a prisoner at [facility] and a patient of JEANIE Hollis. Last May, he was admitted to the hospital with severe sepsis, found to have perforated diverticulitis with hepatic abscess and portal vein thrombosis. He underwent emergency sigmoid resection with end colostomy (Zuhair's procedure) drainage of abscess and anticoagulation. Over time, he has fully recovered from this process. He has undergone a flexible colonoscopy and attempts at flexible proctoscopy yesterday showing no evidence of proximal lesions other than a few scattered diverticula. Stool was found to be retained in the rectum on examination which was not easily cleared and he did undergo enemas at the senior care overnight, anticipating operation today which did deliver inspissated mucoid material from the rectum. He is here today to undergo takedown of the colostomy, which might include partial colectomy and other indicated procedures. The risk of bleeding, infection, anastomotic failure, stricture formation, and other unforeseen complications was reviewed in detail with him. He understands and wished to proceed. Electronically Signed By: KIMBERLEY HOLLAND MD 03/14/23 1211 PATIENT NAME: JR CERVANTES OPERATIVE REPORT DATE OF : 60 REPORT #: [id number] PHYSICIAN: KIMBERLEY HOLLAND MD PCP: LUDY BRAND REPORT IS CONFIDENTIAL AND NOT TO BE RELEASED WITHOUT AUTHORIZATION [facility] [address], [place] [address] Signed FINDINGS: The patient has significant abdominal obesity. He did have a fair amount of intraabdominal adhesions requiring mobilization. The colon remaining left side associated with the end-colostomy required mobilization (splenic flexure mobilization to allow tension-free anastomosis to the rectum). The rectal remnant included the upper portion of the rectum and was capacious. Anastomosis was accomplished at the site and appears to be widely patent without evidence of ischemia or other problem. The liver was grossly normal. There was no other sign of abnormality with the small bowel or the remaining colon. PROCEDURE IN DETAIL: The patient was brought to the operating room, given a general endotracheal anesthetic. A full bowel prep was accomplished including oral antibiotics. After satisfactory general endotracheal anesthesia and application of sequential compression device stockings and a Valdez catheter placed by myself, rigid proctoscopy was undertaken. He had no retained fluid or stool within the rectum and there was no sign of lesion to disqualify him for anastomosis today. Legs were placed to a neutral position and the abdomen was clipped and prepared with a chlorhexidine solution after removing the ostomy appliance. Preparation with a chlorhexidine solution was undertaken and an Ioban applied across the abdomen to occlude the effluent from the colostomy itself. The midline incision previously used was used once again. Incision extended above the umbilicus and extended to the symphysis pubis. Thick abdominal wall pannus was divided and the fascia was divided as well. There was no evidence of incisional hernia. Entry to the abdomen was undertaken. Omental tissue was notably beneath the fascial layer and this was ultimately from the underlying viscera. Incision was extended cephalad due to his significant obesity. The true peritoneal cavity showed intraabdominal adhesions of small bowel as might be expected given the extent of inflammation previously. A Bookwalter retractor was ultimately placed. After lysis of adhesions extensively, and mobilization of the small bowel, which had been densely tethered to the pelvis, small bowel was packed to the right side of the abdomen revealing well the left colon as it entered the abdominal wall. The left colon was dissected free from the surrounding aperture of the colostomy site freeing it entirely and transecting with a YSABEL stapling device. Further mobilization of the left colon was accomplishe to deliver the remaining left colon to the pelvis. Attention was turned towards the rectal remnant. Distortion from past inflammation was noted. Long Prolene sutures previoulsy placed to jr the corners of previous resection were identified and the rectal remnant was dissected from the surrounding soft tissue. The rectal remnant was bulky but healthy in appearanced. The remaining left colon was Electronically Signed By: KIMBERLEY HOLLAND MD 03/14/23 1211 PATIENT NAME: JR CERVANTES OPERATIVE REPORT DATE OF : 60 REPORT #: [id number] PHYSICIAN: KIMBERLEY HOLLAND MD PCP: LUDY BRAND TIMBER BUCKER REPORT IS CONFIDENTIAL AND NOT TO BE RELEASED WITHOUT AUTHORIZATION [facility] [address], [place] [address] Signed very well decompressed. The colon reached easily to the rectum for anastomosis. The surface of the rectum was freed and the colon brought in continuity to the rectum to ultimately allow for a side to end coloproctostomy. Upon opening the colon, however, it appeared rather stenotic and therefore this segment for anastomosis was abandoned. Further dissection of the remaining left colon was undertaken resecting a segment to allow for a healthy Madrigal coloproctostomy. Unfortunately, the segment would not reach without tension and therefore further efforts were required to mobilize the splenic flexure once again. As it had been somewhat mobilized previously, dense scar tissue was noted. The white line of Toldt was then freed, mobilizing the left colon to allow for a side-to-end coloproctostomy. The site was isolated with laparotomy packs and a side-to-end coloproctostomy undertaken in a two-layer technique of interrupted 3-0 silk suture. A defect of the mesentery to the retroperitoneum was secured with interrupted 3-0 silk sutures to avoid transmesenteric herniation in the future. Irrigation was undertaken more fully. Gloves were changed. The anastomosis appeared to be quite secure, and fully viable. There was not too much tension on the anastomosis. Irrigation was undertaken. Small bowel was replaced to a natural configuration. IN the left lower quadrant a stab incision was made to acomodate a 7 mm flat maggie drain. The drain was placed in the left pelvis area and the left pericolic space. Examination of the inner table of the abdomen on the left side through which the colostomy had passed was then further dissected free of the remnant colon and colostomy. Abdominal wall musculature was reapproximated in a superior to inferior direction with interrupted #1 PDS suture and a running #1 PDS suture as well. Attention was then turned toward closure. Additional irrigation was undertaken. Small bowel was returned to a normal anatomic configuration. A segment of omentum had been freed from the left side of the stomach and drawn down to the anastomotic area and secured with interrupted 3-0 silk sutures to additionally reinforce the anastomosis itself. The omental pedicle graft appeared viable. Plans were then made for closure. The midline fascia was reapproximated with running bidirectional #1 PDS suture with interrupted #1 PDS for internal retention support. Irrigation was undertaken in subcutaneous space more fully. The skin was then closed with stapling device and an Acticoat dressing applied. Attention was then turned to the left ostomy site itself. The remnant colonic tissue was excised circumferentially through the subcutaneous tissue and discarded. A defect in the anterior rectus sheath was reapproximated transversely with interrupted 0 PDS suture. Copious irrigation was undertaken. A single clip was used to transversely Electronically Signed By: KIMBERLEY HOLLAND MD 03/14/23 1211 PATIENT NAME: JR CERVANTES OPERATIVE REPORT DATE OF : 60 REPORT #: [id number] PHYSICIAN: KIMBERLEY HOLLAND MD PCP: LUDY BRAND REPORT IS CONFIDENTIAL AND NOT TO BE RELEASED WITHOUT AUTHORIZATION [address] [address] Signed reapproximate the skin in this area. A gauze dressing was applied. The drain was attached to bulb suction. The patient was ultimately extubated and transported to the recovery room in good condition having suffered no known complication. Sponge, needle and instrument counts were reported as correct x3. Blood loss was less than 100 mL in aggregate. Kimberley Holland MD /ANDRESL /[id number] cc: JEANIE Min [facility] Copies: ~ Electronically Signed By: KIMBERLEY HOLLAND MD 03/14/23 1211 PATIENT NAME: JR CERVANTES OPERATIVE REPORT DATE OF : 60 REPORT #: [id number] PHYSICIAN: KIMBERLEY HOLLAND MD PCP: LUDY BRAND REPORT IS CONFIDENTIAL AND NOT TO BE RELEASED WITHOUT AUTHORIZATION
--- NOTE | 2023-03-14 12:11 | NUR ---
PT UP WALKING HALLWAY WITH [facility] OFFICER. DENIES PAIN OR FURTHER NEEDS AT THIS TIME.
[2023-03-14 13:20] VITALS: BP 134/78
--- NOTE | 2023-03-14 13:28 | NUR ---
AFTERNOON ASSESSMENT COMPLETED. PT COMPLAINT OF ABD DISTENTION AND BELCHING. TORDOL OFFERED. PT DENIES BEDBATH AT THIS TIME DUE TO TIME.
--- NOTE | 2023-03-14 14:30 | NUR ---
THIS RN OBTAINED CMP ON PT VIA BUTTERFLY IN LEFT WRIST. PT TOLERATED WELL. SAMPLE GIVEN TO LAB. XRAY AT BEDSIDE FOR CHEST XRAY.
--- NOTE | 2023-03-14 16:48 | NUR ---
DR HOLLAND CALLED AND INFORMED OF XRAY FINDINGS WHICH INDICATED A SUSPICION OF BOWEL OBSTRUCTION. TELEPHONE ORDER PLACED BY DR HOLLAND FOR NGT AT LOW/INT SUCTION. IN TO PT ROOM TO DISCUSS NEED FOR NGT, PT VERBALIZED UNDERSTANDING.
[2023-03-14 17:25] VITALS: BP 148/93
--- NOTE | 2023-03-14 20:20 | NUR ---
Pt assessment and medication administration completed. Pt is a/o, respirations even and regular. Pt has had x1 unmeasured and 125ml measured voids since start of shift. Pt states he had a large bm today that was loose. NG output noted at 175ml at start of shift. No new shadowing noted to dressings. PRN toradol given for pain and temp of 100.5. Dr. Heller notified by day shift RN of increased temperature. IS encouraged. Call light within reach.
[2023-03-14 20:21] VITALS: BP 127/80
--- NOTE | 2023-03-14 21:37 | NUR ---
SPOKE WITH DR. HOLLAND AND GAVE UPDATE ON PT. VO GIVEN FOR Nestor CORTES.
--- NOTE | 2023-03-14 22:11 | NUR ---
ROUNDED ON PT. PT AMBULATED TO RESTROOM. STATES HE IS HAVING LOOSE YELLOW STOOL. WAS ABLE TO VOID. PT BACK TO BED WITH NG TO SUCTION.
--- NOTE | 2023-03-14 23:04 | NUR ---
PT ASSISTED BACK TO BED. NG BACK TO SUCTION. IV FLUIDS RUNNING. OFFICER REMAINS AT BEDSIDE.
--- NOTE | 2023-03-15 00:43 | NUR ---
TO PT ROOM TO ASSIST PT TO RESTROOM. REQUESTED PAIN MEDICATION FOR PAIN RATING 8/10. PRN DILAUDID ADMINISTERED. PT HAS BEEN UP TO BATHROOM NUMEROUS TIMES STATING HE IS HAVING LOOSE STOOL PT HAS NOT BEEN ABLE TO CATCH FOR VISUALIZATION. HAT IS IN TOILET. PT STATES THEY ARE LOOSE AND YELLOW. IV FLUIDS RUNNING. PT RECONNECTED TO SUCTION. OFFICER AT BEDSIDE.
--- NOTE | 2023-03-15 03:02 | NUR ---
ASSISTED PT TO RESTROOM. STATES HE HAS HAD HICCUPS OFF AND ON ALL NIGHT WHICH WAKE HIM UP. PT IS A/O, RESPIRATIONS EVEN AND REGULAR. ABDOMEN DISTENDED AND FIRM. DISTENTION SEEMS TO HAVE INCREASED SOME SINCE START OF SHIFT BUT REMAINS SOFT COMPARED TO YESTERDAY. CONTINUES TO HAVE FLATULUS, BOWEL SOUNDS ACTIVE.
--- NOTE | 2023-03-15 04:20 | NUR ---
PT BACK INTO BED, HAD GOTTEN UP TO BATHROOM HAD VERY SMALL STOOL, YELLOWISH SLIMMY BROWN TINGE. TOMÁS BENJAMIN. GUARD AT BEDSIDE.
[2023-03-15 05:19] VITALS: BP 126/77
--- NOTE | 2023-03-15 05:19 | NUR ---
pt in bed resting. vitals and is and os complete. pt up to br. rn in room to unhook pt from suction. pt sba to br. pt back to bed. rn in room to hook pt up to suction. urinal emptied and hat emptied. no needs. call light within reach
--- NOTE | 2023-03-15 05:30 | NUR ---
ASSISTED PT BACK TO BED AFTER USING BATHROOM. RUSSELL EMPTIED. PT NG BACK TO SUCTION. OFFICER AT BEDSIDE.
--- NOTE | 2023-03-15 07:07 | NUR ---
Patient resting in bed, eyes closed, respirations even and non labored. Patient has no notable distress. deck officer at bedside.
--- NOTE | 2023-03-15 08:10 | NUR ---
Patient up to restroom at this time, no acute distress. Patient reports unchanged abdominal distention this morning. Abdominal dressings are unchanged, previous marked shadowing noted to both midline and LLQ dressing(s). RUSSELL intact/patent with sarosang drainage noted. NG intact/patent, clear annabella colored gastric content noted. Admin toradol 30mg IV and Zofran 4MG IV for reports of 6/10 abdominal pain and nausea. Hypoactive bowel tones noted x4 quadrants. Encouraged patient to walk and call staff if he has needs. Pt verbalized his understanding. correctional officer sergeant at bedside.
[2023-03-15 09:28] VITALS: BP 111/71
--- NOTE | 2023-03-15 13:51 | NUR ---
Admin toradol 30mg iv for reports of 7/10 abdominal pain.
--- NOTE | 2023-03-15 13:51 | NUR ---
Patient ambulated in the hallway with global chief creative officer, tolerated well.
[2023-03-15 15:05] VITALS: BP 128/77
--- NOTE | 2023-03-15 15:44 | NUR ---
PATIENT SAID HE TOOK A BED BATH AND BRUSHED HIS TEETH THIS MORNING ALSO GOT A NEW GOWN.
--- NOTE | 2023-03-15 15:46 | NUR ---
PATIENT HAS WALKED FIVE SHORT LAPS AROUND MED SURG. SINCE 0950 THIS MORNING.
[2023-03-15 17:23] VITALS: BP 134/73
--- NOTE | 2023-03-15 17:38 | NUR ---
VERBAL ORDER OBTAINED FROM DR. HOLLAND TO RENEW DISCONTINUED ORDER FOR TORADOL 30MG IV EVERY 6 HOURS NEEDED FOR PAIN.
--- NOTE | 2023-03-15 18:24 | NUR ---
Patient ambulated in hallway with forest officer, tolerated very well. Patient reports feeling hungry this evening. Updated patient on plan of care regarding current NPO status. IV fluids infusing per provider order. NG to LIWS, light brown colored gastric content noted.
--- NOTE | 2023-03-15 19:27 | NUR ---
REPORT RECEIVED FROM ALBINO AZUL. pt RESTING IN BED. NGT TO LOW INT SUCTION. BROWN DRAINAGE IN TUBE. IVF INFUSING WNL. pt DENIES NEEDS. STATES HAS "SOME CRAMPING". GUARD IN ROOM.
[2023-03-15 20:00] VITALS: BP 127/80
--- NOTE | 2023-03-15 20:13 | NUR ---
CALL LIGHT ANSWERED. SBA TO RESTROOM FOR LOOSE BM AND VOID, CONCENTRATED URINE, JULIAN COLORED. BACK TO BED. NEW NGT CANNISTER PLACED, 175 MLS EMPTIED. RUSSELL EMPTIED, 30 MLS SS FLUID. ASSESSMENT COMPLETE. BOWEL TONES ACTIVE, ABD DISTENDED, SOFT, SOME TENDERNESS IN LLQ WITH PALPATION. pt RATES PAIN 8/10. PRN TORADOL ADMINISTERED. pt EDUCATION PROVIDED REGARDING AVOIDING NARCOTICS. IV SITE FLUSHED WNL. IVF INFUSING. CALL LIGHT IN REACH.
--- NOTE | 2023-03-15 22:48 | NUR ---
CALL LIGHT ANSWERED. NGT CLAMPED, SBA TO RESTROOM. IVF INFUSING WNL. pt STATES HE HAD A SMALL NAP.
--- NOTE | 2023-03-15 23:30 | NUR ---
PT BACK INTO BED FROM BATHROOM. NG LIWS.
--- NOTE | 2023-03-15 23:37 | NUR ---
pt RESTING IN BED, COMPLAINS OF SORE THROAT. PRN MANDI PROVIDED. NEW BAG IVF INFUSING WNL. NGT TO LOW INT SUCTION. CALL LIGHT IN REACH. GUARD IN ROOM.
--- NOTE | 2023-03-16 02:27 | NUR ---
CHECKED ON pt. GUARD IN ROOM STATES "HE'S SLEEPING". HOB ELEVATED, BREATHING UNLABORED. NGT TO LOW INT SUCTION. IVF INFUSING WNL.
[2023-03-16 04:26] VITALS: BP 142/82
--- NOTE | 2023-03-16 04:48 | NUR ---
CALL LIGHT ANSWERED. pt COMPLAINS OF 9/10 PAIN IN ABDOMEN. PRN TORADOL ADMINISTERED FOR PAIN. ASSESSMENT COMPLETE. BOWEL TONES ACTIVE. ABDOMEN DISTENDED. ABDOMEN SOFT. SHADOWING ON DRESSINGS UNCHANGED FROM START OF SHIFT. RUSSELL EMPTIED, 55 MLS SS FLUID. NGT WITH 390 MLS BROWN DRAINAGE. pt REPORTS LOOSE BM WHEN UP TO TOILET. PRN LOSANGE PROVIDED. NGT DRESSING CHANGED. CALL LIGHT IN REACH. GUARD IN ROOM SITTING IN CHAIR.
--- NOTE | 2023-03-16 05:00 | NUR ---
pt WITH 85 MLS OUT OF RUSSELL DRAIN THIS SHIFT, SS DRAINAGE. NGT WITH 565 MLS BROWN DRAINAGE. BMS THIS SHIFT, pt WITH FLATUS. ABD DISTENDED. BOWEL TONES ACTIVE. PRN TORADOL FOR PAIN CONTROL. NO OPIOIDS THIS SHIFT. pt RESTED WELL. GUARD PRESENT IN ROOM.
--- NOTE | 2023-03-16 07:31 | NUR ---
Report received from Faye POSADA. Pt taken to imaging for KUB. Will cont plan of care.
--- NOTE | 2023-03-16 07:52 | NUR ---
Pt returns from imaging, NGT to LIWS WNL. IVF infusing WNL.Assessment complete. Bowel tones hypoactive, ABD mildly distended, pt reports improved from admission. Discussed options for pain control, will encourage ambulation.
[2023-03-16] MEDS ORDERED: CALMOSEPTINE OI71 GM TOP (08:41)
[2023-03-16] MEDS ORDERED: FLUOCINONIDE15 GM TOP (08:43)
--- NOTE | 2023-03-16 08:45 | NUR ---
Medication administration complete, assessment complete. IVF infusing. Pt has no needs.
[2023-03-16] MEDS ORDERED: INCRUSE ELLI62.5 MCG INH (08:46)
[2023-03-16] MEDS ORDERED: WARFARIN SODIUM4 MG PO (08:49)
[2023-03-16] MEDS ORDERED: WHITE PETROLE16.8 GM TOP (08:50)
--- NOTE | 2023-03-16 09:02 | NUR ---
MED REC COMPLETE
[2023-03-16 09:52] VITALS: BP 148/83
--- NOTE | 2023-03-16 10:00 | NUR ---
PRN pain medication administered for 10/10 ABD pain. pt encouraged to ambulate, pt agreeable. Warm blanket provided.
--- NOTE | 2023-03-16 12:11 | NUR ---
PATIENT PLAN OF CARE HAS NOT CHANGED. PATIENT WILL GO BACK TO [facility] WHEN MEDICALLY STABLE. STATUS POST HARTMANS REVERSAL.
--- NOTE | 2023-03-16 12:26 | NUR ---
PATIENT UP TO AMBULATE LAPS IN HALLWAY.
--- NOTE | 2023-03-16 12:57 | NUR ---
Cepacol lozenge given to pt per request, new bag LR jose angel, BRIDGER Bustillos running WNL.
[2023-03-16 13:40] VITALS: BP 142/83
--- NOTE | 2023-03-16 13:50 | NUR ---
Vital signs and I/Os complete. NGT removed by Dr Heller. plan of care reviewed. Ice water provided. Pt has no further needs at this time
--- NOTE | 2023-03-16 15:48 | NUR ---
Rounded on patient, sitting at edge of bed drinking clear liquids, tolerating well at this time, states no nausea. Pt passing gas and belching. IVF with K infusing WNL. Pt states no needs at this time.
[2023-03-16 18:07] VITALS: BP 141/86
--- NOTE | 2023-03-16 19:43 | NUR ---
REPORT RECEIVED FROM ALBINO KRAUS. pt RESTING IN BED ASLEEP, AWAKENS WHEN RNS ENTER FOR BEDSIDE REPORT. pt REQUESTING THAT THIS RN LOOK AT HIS INCISION. INCISION WELL APPROXIMATED WITH YENI, OPEN TO AIR. pt STATES "I THOUGHT SHE PUT A DRESSING BACK ON IT". EDUCATED pt NOT TO SCRATCH OR TOUCH INCISION. pt DENIES ANY NEEDS. IVF INFUSING WNL.
[2023-03-16 20:34] VITALS: BP 114/66
--- NOTE | 2023-03-16 20:50 | NUR ---
IV POTASSIUM RIDER COMPLETE. IVF INFUSING WNL. SCHEDULED MEDICATIONS ADMINISTERED. pt COMPLAINS OF PAIN AT SURGICAL SITE AND LLQ AT OSTOMY REVERSAL, -05/24. BOWEL TONES ACTIVE, ABD SOFT, NON-TENDER WITH PALPATION, ABD DISTENDED. EDUCATION PROVIDED REGARDING PAIN MEDICATION, AMBULATION ENCOURAGED. pt SITTING UP AT SIDE OF BED AT THIS TIME. CALL LIGHT IN REACH. GUARD IN ROOM. CLEAR ENSURE PROVIDED. pt DENIES NAUSEA.
--- NOTE | 2023-03-16 21:45 | NUR ---
CALL LIGHT ANSWERED. IV PUMP ALARMING, DISTAL OCCLUSION. pt STATES PAIN IS WAKING HIM UP, RATES PAIN 6-7/10 AT REST AT INCISION AND 10/10 WHEN HE MOVES. PRN PAIN MEDICATION ADMINISTERED. pt DRINKING CLEAR ENSURE WITH PO MEDICATION. GUARD IN ROOM. CALL LIGHT IN REACH.
--- NOTE | 2023-03-17 00:08 | NUR ---
CHECKED ON pt RESTING IN BED WITH EYES CLOSED. BREATHING UNLABORED. LYING ON RIGHT SIDE. GUARD IN ROOM.
--- NOTE | 2023-03-17 02:50 | NUR ---
CALL LIGHT ANSWERED. IV PUMP ALARMING DISTAL OCCLUSION. pt ACCIDENTALLY PULLED IV. NEW IV PLACED BY ALBINO WILKINSON IN LEFT FOREARM. pt TOLERATED WELL. SBA TO RESTROOM FOR VOID AND LOOSE BM. BACK IN BED ASSESSMENT COMPLETE. PRN MOTRIN ADMINISTERED FOR 7/10 PAIN IN ABDOMEN. ICE WATER REFILLED. CALL LIGHT IN REACH.
--- NOTE | 2023-03-17 03:54 | NUR ---
CALL LIGHT ANSWERED. IV PUMP ALAMRING, DISTAL OCCLUSION. SITE ASSESSED, IVF INFUSING WNL. CALL LIGHT IN REACH. GUARD IN ROOM.
[2023-03-17 06:27] VITALS: BP 104/69
--- NOTE | 2023-03-17 06:30 | NUR ---
pt AWAKE RESTING IN BED. RUSSELL EMPTIED, 30 MLS SS FLUID. pt HAS NO COMPLAINTS OF PAIN. DENIES NAUSEA. REQUESTING TO EAT MORE. IVF INFUSING WNL. CALL LIGHT IN REACH. GUARD IN ROOM.
--- NOTE | 2023-03-17 07:15 | NUR ---
Report from Niki Wong RN. Patient resting in bed, respirations even and unlabored. Allowed to rest at this time. Guard in room with patient. Call light in reach, bed rails up X2. Correctional restraints in place.
[2023-03-17 09:56] VITALS: BP 122/81
--- NOTE | 2023-03-17 10:10 | NUR ---
AMBULATING IN HALLWAY, REQUESTS TO SHOWER. IV CONVERTED TO SL AND COVERED.
--- NOTE | 2023-03-17 12:04 | NUR ---
CASE MANAGEMENT UPDATED JOSE D POSADA AT [facility] [phone] WITH CURRENT HOSPITAL DOCUMENTATION FOR 03-16-23. DISCHARGE PLAN REMAINS UNCHANGED. PATIENT WILL RETURN TO [facility] WHEN MEDICALLY STABLE.
--- NOTE | 2023-03-17 12:30 | NUR ---
Showered this AM. Gauze to ostomy takedown site applied and drain sponge over drain applied.
--- NOTE | 2023-03-17 13:58 | NUR ---
Ambulating in hallway with guard.
[2023-03-17 14:52] VITALS: BP 125/73
--- NOTE | 2023-03-17 15:54 | PATH ---
[facility] [address], [place] [address] Signed SPECIMEN(S): A PORTION DESCENDING COLON SPECIMEN(S): B COLOSTOMY STOMA SPECIMEN SOURCE: A. PORTION DESCENDING COLON B. COLOSTOMY STOMA CLINICAL HISTORY: History of ruptured diverticulum, colostomy. Zuhair's pouch. FINAL PATHOLOGIC DIAGNOSIS: A. Portion of descending colon: - Segment of colon with a focus of acute serositis. - Surgical resection margins are viable. B. Colostomy stoma: - Segment of colon with pericolonic fibrosis, consistent with features seen in colostomy. TWK:[facility]:C2NR MICROSCOPIC EXAMINATION: Histologic sections of all submitted blocks are examined by light microscopy. These findings, together with the gross examination, support the pathologic diagnosis. GROSS DESCRIPTION: A. The specimen, labeled and designated "Haddad, A" and designated on the requisition "portion of descending colon," is received in formalin and consists of a stapled portion of bowel (4.5 x 3.0 x 2.2 cm). The serosa is red-brown and roughened. One margin is inked blue and the opposite margin is inked black. The specimen is sectioned to reveal pink-mercado to red-brown mucosal folds. Director Of Retail sections are submitted in cassette A1. B. The specimen, labeled and designated "Haddad, B" and designated on the requisition "colostomy," is received in formalin and consists of a portion of stapled mercado-pink to red-brown mucosa (5.0 x 3.0 x 2.7 cm). Skin is not grossly identified. Director Of Retail sections are submitted in cassette B1-B2. AC (under the direct supervision of a pathologist) The Gross Description was prepared using a voice recognition system. The report was reviewed for accuracy; however, sound-alike word errors, addition and/or PATIENT NAME: CHELE HADDAD PATHOLOGY DATE OF : 60 REPORT #: [id number] PHYSICIAN: GARRICK LIVINGSTON PCP: LUDY BRAND REPORT IS CONFIDENTIAL AND NOT TO BE RELEASED WITHOUT AUTHORIZATION [facility] [address], [place] [address] Signed deletions may occur. If there is any question about this report, please contact Client Services. PERFORMING LABORATORY: The technical component was performed by [facility], [address] [place] [id number] (CLIA# [id number]). The professional interpretation [facility], [facility], [facility] [address] [address] (CLIA#: [id number]). Diagnostician: Francois Hunter MD Pathologist Electronically Signed 03/17/2023 Copies: ~ PATIENT NAME: CHELE HADDAD PATHOLOGY DATE OF : 60 REPORT #: [id number] PHYSICIAN: GARRICK PATHOLOGY PCP: LUDY BRAND VICE PRESIDENT OF TALENT ACQUISITION REPORT IS CONFIDENTIAL AND NOT TO BE RELEASED WITHOUT AUTHORIZATION
[2023-03-17 18:31] VITALS: BP 118/70
--- NOTE | 2023-03-17 19:16 | NUR ---
Received bedside report from offgoing shift, hourly rounding initiated.
[2023-03-17 20:08] VITALS: BP 132/83
--- NOTE | 2023-03-17 20:26 | NUR ---
In pt room for medication administration, assessment, VS. Pt calm and cooperative, able to make needs known. Pt has officers at bedside, complains of mild pain, requesting tylenol. Pt has call light in reach
--- NOTE | 2023-03-17 20:43 | NUR ---
Pt up ambulating in hallway with officer at side, Pt appears to be able to move with some restraint. Pt back to room without incident, call light in reach.
--- NOTE | 2023-03-17 21:50 | NUR ---
IN PT ROOM RESPONDING TO CALL LIGHT. PT COMPLAINING OF HEART BURN, REQUESTING FURTHER INTERVENTIONS. CALLED AND ORDERED MAALOX SUSPENSION NOW, PROTONIX STARTING IN THE AM. PT HAS NO FURTHER COMPLAINT, CALL LIGHT IN REACH, OFFICER AT BEDSIDE
--- NOTE | 2023-03-17 23:34 | NUR ---
iN PT ROOM FOR ROUNDING. PT RESTING ON BACK, EYES OPEN WATCHING TV. PT HAS OFFICER IN ROOM, INTERACTING APPROPRIATELY. PT HAS NO COMPLAINT OF PAIN AT THIS TIME, CALL LIGHT IN REACH.
--- NOTE | 2023-03-18 01:17 | NUR ---
IN pt room for rounding. Pt resting in bed, eyes closed, breathing even and unlabored, officer at bedside, call light in reach
--- NOTE | 2023-03-18 02:18 | NUR ---
IN pt room for rounding. Pt resting in bed, eyes closed, breathing even and unlabored with no indication of pain or discomfort. Pt has officer at bedside, call light in reach.
--- NOTE | 2023-03-18 03:22 | NUR ---
call light answered, pt reports iv pump alarming. new bag iv fluids hung and infusing as directed, iv site wnl. no additional needs or concerns verbalized by pt. guard remains in room.
--- NOTE | 2023-03-18 03:56 | NUR ---
In pt room for rounding. Pt resting on back, eyes closed, breathing even and unlabored, officer at bedside. Pt has no complaint of or indication of pain at this time, call light in reach.
--- NOTE | 2023-03-18 05:07 | NUR ---
IN pt room in response to IV beeping. Pt had moved arm causing distal occlusion. Pt has no further complaint, officer at the bedside, call light in reach.
[2023-03-18 05:19] VITALS: BP 130/87
--- NOTE | 2023-03-18 05:22 | NUR ---
IN pt room for rounding, VS. Pt resting on back, eyes closed, breathing even and unlabored. Pt VS stable, no indication or complaint of pain, officer at bedside, call light in reach.
--- NOTE | 2023-03-18 08:35 | NUR ---
No change in plan for this pt at this time. Awaiting for to update case management.
[2023-03-18 09:26] VITALS: BP 138/74
--- NOTE | 2023-03-18 10:20 | NUR ---
Progress note for 03/17 was sent to Guevara at [facility]. Their fax number is [phone]. They had left a message asking for yesterdays and todays notes.
--- NOTE | 2023-03-18 12:11 | NUR ---
PT RUSSELL DRAIN EMPTIED/DOCUMENTED. PT COMPLAINS OF AN 8/10 BACK PAIN, RN NOTIFIED.
[2023-03-18 13:16] VITALS: BP 115/73
--- NOTE | 2023-03-18 15:35 | NUR ---
PT UP TO THE SHOWER. ABD PAIN 8/10, PRN PAIN MEDICATION ADMINISTERED (PER EMAR). CALL LIGHT IN REACH. DENIES FURTHER NEEDS.
--- NOTE | 2023-03-18 15:50 | NUR ---
REMOVED DRESSING FOR PT TO SHOWER. SURGICAL SITE SHOWS NO SIGNS OF INFECTION, STAPLE INTACT.
[2023-03-18 18:20] VITALS: BP 115/78
--- NOTE | 2023-03-18 18:30 | NUR ---
PT COMPLAINS OF BACK AND ABD PAIN, 07/25. PRN PAIN MEDICATION ADMINISTERED (PER EMAR). DENIES FURTHER NEEDS. CALL LIGHT IN REACH.
--- NOTE | 2023-03-18 19:18 | NUR ---
Received bedside report from offgoing shift hourly rounding initiated.
[2023-03-18 20:14] VITALS: BP 121/76
--- NOTE | 2023-03-18 20:15 | NUR ---
IN pt room for vs, medication administration, assessment. Pt resting on back, eyes closed, breathing even and unlabored with no complaint of pain. Officer at bedside, call light in reach.
--- NOTE | 2023-03-18 23:45 | NUR ---
In pt room for assistance with hot pack. pt requesting for discomfort in back, no further complaints, officer at bedside, call light in reach.
--- NOTE | 2023-03-19 00:41 | NUR ---
IN pt room for rounding. pt resting on back, eyes closed, breathing even and unlabored. Pt has no indication of or complaint of pain at this time, officer at bedside, call light in reach.
--- NOTE | 2023-03-19 01:19 | NUR ---
call light answered, pt reports 8/10 pain. prn pain medicaiton offered. no additional needs, call light in reach. guard x1 remains in room.
--- NOTE | 2023-03-19 01:57 | NUR ---
In pt room for rounding. pt resting on back, eyes closed, breathing even and unlabored, no indication of or complaint of pain. Pt has officer at bedside, call light in reach.
--- NOTE | 2023-03-19 03:44 | NUR ---
In pt room for rounding, pt resting on back, eyes closed, breathing even and unlabored, no complaint of pain, officer at bedside, call light inr each.
[2023-03-19 05:59] VITALS: BP 122/74
--- NOTE | 2023-03-19 06:09 | NUR ---
Gave Pt fresh ice water. Left call light in reach. No other needs expressed by Pt.
--- NOTE | 2023-03-19 08:14 | NUR ---
MORNING ASSESSMENT COMPLETE. ABD/BACK PAIN 05/24, PRN PAIN MEDICATION ADMINISTERED (PER EMAR). PT STATES PAIN LESSENS WITH MOVEMENT. ABD SOUNDS ACTIVE IN ALL QUADRANTS, TENDER. MIDLINE YENI INTACT, NO SIGNS OF REDDNESS. REVERSE STOMA,INTACT, COVERED WITH GUAZE, CDI. RUSSELL IN PLACE, SS DRAINAGE. GUARD AT BEDSIDE. CALL LIGHT IN REACH.
[2023-03-19] MEDS ORDERED: ACETAMINOPHEN500 MG PO (09:38)
[2023-03-19] MEDS ORDERED: IBUPROFEN600 MG PO (09:38)
[2023-03-19 10:07] VITALS: BP 124/62
--- NOTE | 2023-03-19 11:01 | NUR ---
UPON WAITING FOR DISCHARGE PT COMPLAINS OF 8/10 ABD PAIN. PRN PAIN MEDICATION ADMINISTERED (PER BRAXTON). CALL LIGHT IN REACH.
--- NOTE | 2023-03-19 12:48 | DS ---
[facility] [address], [place] [address] Signed ADMISSION DATE: 03/12/2023 DISCHARGE DATE: 03/19/2023 REASON FOR ADMISSION: This 62-year-old white man is a prisoner at [facility] and a patient of JEANIE Solis. In May of last year, he was admitted to the hospital with severe sepsis and found to have perforated diverticulitis with hepatic abscess and portal vein thrombosis. He underwent emergency sigmoid resection with end colostomy (Zuhair's procedure) with drainage of abscess and anticoagulation. He has fully recovered from this process and has undergone flexible sigmoidoscopy and proctoscopy showing no contraindication to takedown of the colostomy. Notably, he has had clearance of the portal vein thrombosis as well and no evidence of hepatic abscess. He is admitted to undergo takedown of the colostomy. PERTINENT PHYSICAL EXAMINATION: GENERAL: Showed an obese white man, who looked to be in no acute distress. He had no palpable mass. The colostomy in the left lower abdomen is functioning well. HOSPITAL COURSE: On March 12, 2023, he underwent laparotomy with takedown of the colostomy, which included a partial colectomy, side-to-end coloproctostomy. Mobilization of the splenic flexure was undertaken as well. The operation was rather prolonged, complicated, and difficult on the basis of intra-abdominal adhesions, obesity, and so on. His postoperative course was relatively unremarkable, though he did develop an ileus two days after initiation of his clear liquid diet. This required a nasogastric tube to be placed to allow bowel function to return. He soon thereafter had recovery of his bowel function, advancement in his diet from a clear liquid to full liquid and ultimately a solid diet which he tolerated well. By the day of discharge, he is ambulating well, tolerating a regular diet. He has normal bowel movements. Incision is healing well and the ostomy site is without sign of infection or other problem. FOLLOWUP PLAN: He is to [facility] to [facility]. Corbett will be removed at that time. He is to lift no more than 20 pounds for the next 4 weeks and should ambulate on a daily basis. DISCHARGE MEDICATIONS: Will include ibuprofen 600 mg p.o. q.6 hours as needed for pain #60 and Tylenol plain 500 mg two tablets p.o. q.6 hours as needed for pain #60. He will resume his usual Electronically Signed By: KIMBERLEY HOLLAND MD 03/19/23 1248 PATIENT NAME: CHELE CERVANTES DISCHARGE SUMMARY DATE OF : 60 REPORT #: [id number] PHYSICIAN: KIMBERLEY HOLLAND MD PCP: LUDY BRAND REPORT IS CONFIDENTIAL AND NOT TO BE RELEASED WITHOUT AUTHORIZATION [address] [address] Signed medication of omeprazole 20 mg p.o. daily, Singulair 10 mg tablet daily, albuterol sulfate inhaler two puffs as needed four times a day, vitamin D 50 mcg (2000 units) p.o. daily, methotrexate 20 mg subcutaneously weekly, clobetasol applied topically as needed for rash, folic acid 0.4 mg daily, menthol, zinc, calmoseptine ointment as needed for skin irritation, fluocinonide applied as needed for skin irritation (no longer ). Incruse Ellipta 62.5 mcg one daily and he will discontinue his warfarin as he has gone more than six months with anticoagulation and shows no evidence of portal vein thrombosis. DISCHARGE DIAGNOSES: 1. History of perforated diverticulitis with abscess, portal vein thrombosis and hepatic abscess status post Zuhair's procedure May 2022. 2. Status post takedown of colostomy with side-to-end coloproctostomy, partial colectomy with splenic flexure mobilization. 3. Obesity. 4. Reactive airways disease. 5. Gastroesophageal reflux. MD KALPANA Caro/ANDRESL /[id number] cc: JEANIE Sung Copies: LUDY BRAND ~ Electronically Signed By: KIMBERLEY HOLLAND MD 03/19/23 1248 PATIENT NAME: CHELE CERVANTES DISCHARGE SUMMARY DATE OF : 60 REPORT #: [id number] PHYSICIAN: KIMBERLEY HOLLAND MD PCP: LUDY BRAND REPORT IS CONFIDENTIAL AND NOT TO BE RELEASED WITHOUT AUTHORIZATION
--- NOTE | 2023-03-19 13:42 | NUR ---
CALLED JOHANNA, GAVE REPORT TO ELLI. ALL QUESTIONS ANSWERED AT THIS TIME
== END 2023-03-19 12:55 | disposition home or self-care (01) ==
LOC: DSVR 06:38 → DS 06:38 → MS 06:38 → DSVR 06:38 → EDSTATUS 09:00 → MS 09:00 → DS 15:40 → DSVR 15:40 → MS 15:40
PROVIDERS: ADMIT Surgery; ATTEND Surgery
PROC: 0DBM0ZZ Excision of Descending Colon, Open Approach (ICD-10-PCS; principal; 2023-03-12 09:00)
PROC: 0DBM0ZZ Excision of Descending Colon, Open Approach (ICD-10-PCS; 2023-03-12 09:00)
DX: Z43.3 Encounter for attention to colostomy (principal); E66.01 Morbid (severe) obesity due to excess calories; J45.909 Unspecified asthma, uncomplicated; K21.9 Gastro-esophageal reflux disease without esophagitis
CPT/HCPCS: 00840; 36415; 71045; 74018; 76942; 80048; 80053; 83735; 85025; 96372; 96374; 96375; 96376; A9270; G0378; J0131; J0330; J0690; J1100; J1170; J1644; J1885; J2001; J2250; J2405; J2704; J2795; J3010; J3475; J3480; J3490; J7060; J7120; J7121

== ENCOUNTER 2024-02-21 12:57 | Inpatient (IN) | payer OTHER ==
[~2024-02-21] VITALS: Ht 182.9 cm; Wt 109.4 kg
[~2024-02-21 12:57] MED LIST changes: +CALMOSEPTINE OI71 GM TOP; +DILTIAZEM 24HR120 M2 PO; +ELIQUIS5 MG PO; +FLUOCINONIDE15 GM TOP; +IBUPROFEN600 MG PO; -METHOTREXA25 MG/1 M3 SUB-Q; +METHOTREXA25 MG/1 ML SUB-Q; +OMEPRAZOLE20 MG PO; +ONDANSETRON ODT8 MG PO; -PRILOSEC OTC20 MG PO; +WARFARIN SODIUM4 MG PO; +WHITE PETROLE16.8 GM TOP
--- OUTSIDE RECORDS SUMMARY | 2024-02-21 13:03 | XMS ---
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 Hui has no Care Guidelines for this patient. Kay[facility] VIS[facility] COUNT (12 MO.) [facility] T[facility] NOTE: Visits indicate total known visits. 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 - Personal history of nicotine dependence - Personal history of other diseases of the digestive system - Prediabetes - Vomiting, unspecified INPATIENT VISIT TRACKING (12 MO.) 03/12/2023 15:40 [facility] TYPE: Observation COMPLAINT: - TAKE DOWN OF COLOSTOMY,POWERS REVERSAL DIAGNOSES: - Encounter for attention to colostomy - Gastro-esophageal reflux disease without esophagitis - Morbid (severe) obesity due to excess calories - Personal history of other diseases of the digestive system - Unspecified asthma, uncomplicated [email or web address]
[2024-02-21] MEDS ORDERED: IBLOOD GLUCOSE TEST STRIP 1 EA TEST XX ONE (13:30)
[2024-02-21 13:35] LABS: BASOPHILS 0.5 % (0-2); EOSINOPHILS 1.4 % (0-6); HEMATOCRIT 44.7 % (35.0-50.0); HEMOGLOBIN 14.8 g/dL (12.0-18.0); LYMPHOCYTES 20.4 % (24-44); MCHC 33.2 g/dl (30-36); MCV 90.3 fl (81-99); MONOCYTES 8.9 % (0-12); NEUTROPHILS 68.8 % (39-80); PLATELET COUNT 315 K/uL (140-440); RBC 4.95 M/ul (4.3-5.7); RDW 14.7 (10.5-15.0)
[2024-02-21 13:41] LABS: INR 1.11 (0.80-1.30); PARTIAL THROMBOPLASTIN TIME 30.3 Sec (22.9-41.3); PROTIME 13.6 Sec (11.2-14.2)
[2024-02-21 13:47] LABS: ALBUMIN 3.3 g/dL (3.4-5.0); ALBUMIN/GLOBULIN RATIO 0.87 (1.1-2.4); ANION GAP 13.6 (7-21); BILIRUBIN, TOTAL 0.6 ng/dL (0.2-1.0); BUN/CREATININE RATIO 11.57 (6.0-28.6); CALCIUM 8.6 mg/dL (8.5-10.1); CREATININE, SERUM 0.95 mg/dL (0.70-1.30); POTASSIUM 3.6 mmol/L (3.5-5.1); PROTEIN, TOTAL 7.1 g/dL (6.4-8.2)
[2024-02-21] MEDS ORDERED: CLOPIDOGREL BISULFATE 75 MG TAB PO ONE (15:00)
[2024-02-21] MEDS ORDERED: ASPIRIN 325 MG TAB PO ONE (15:00)
[2024-02-21] MEDS ORDERED: LIDOCAINE 2% VISCOUS 6 ML SYR TOP ONE (16:30)
[2024-02-21 16:43] LABS: CHOLESTEROL/HDL RATIO 5.2
[2024-02-21 17:00] VITALS: BP 155/111
[2024-02-21 17:28] VITALS: BP 155/111
[2024-02-21 17:45] VITALS: BP 155/111
[2024-02-21] MEDS ORDERED: MIRALAX17 GM PO (17:57)
[2024-02-21] MEDS ORDERED: ONDANSETRON ODT4 MG PO (17:59)
[2024-02-21] MEDS ORDERED: ADULT ASPIRIN R81 MG PO (18:00)
[2024-02-21] MEDS ORDERED: PHENERGAN25 MG/1 M1 IM (18:01)
[2024-02-21] MEDS ORDERED: MECLIZINE HCL25 MG PO (18:02)
[2024-02-21] MEDS ORDERED: TYLENOL325 MG PO (18:02)
[2024-02-21] MEDS ORDERED: LACTATED RINGER'S 1,000 ML IV SCH (18:30)
[2024-02-21 20:09] VITALS: BP 123/97
[2024-02-21 20:10] VITALS: BP 121/99
[2024-02-21] MEDS ORDERED: METOPROLOL TARTRATE 5 MG/5 ML VIAL IV SCH (20:15)
[2024-02-21] MEDS ORDERED: METOPROLOL TARTRATE 25 MG TAB PO SCH (21:00)
[2024-02-21] MEDS ORDERED: ENOXAPARIN SODIUM 120 MG/0.8 ML SYR SUB-Q SCH (21:00)
[2024-02-21] MEDS ORDERED: APIXABAN 5 MG TAB PO SCH (21:00)
[2024-02-21 22:02] VITALS: BP 116/48
[2024-02-21] MEDS ORDERED: ACETAMINOPHEN 1,000 MG/100 ML VIAL IV PRN (23:15)
[2024-02-22] VITALS (7 sets, daily range): BP systolic 103–131; BP diastolic 57–90
[2024-02-22] MEDS ORDERED: KETOROLAC TROMETHAMINE 15 MG/ML VIAL IV ONE (04:30)
[2024-02-22] MEDS ORDERED: MORPHINE SULFATE 4 MG/ML VIAL IV PRN (04:30)
[2024-02-22 06:03] LABS: ALBUMIN 3.2 g/dL (3.4-5.0); ALBUMIN/GLOBULIN RATIO 0.97 (1.1-2.4); ANION GAP 12.7 (7-21); BILIRUBIN, TOTAL 0.8 ng/dL (0.2-1.0); BUN/CREATININE RATIO 12.22 (6.0-28.6); CALCIUM 8.6 mg/dL (8.5-10.1); CREATININE, SERUM 0.9 mg/dL (0.70-1.30); POTASSIUM 3.7 mmol/L (3.5-5.1); PROTEIN, TOTAL 6.5 g/dL (6.4-8.2)
[2024-02-22] MEDS ORDERED: ASPIRIN 81 MG CHEW PO SCH (08:00)
[2024-02-22] MEDS ORDERED: PHARMACY RENAL DOSE ADJUSTMENT 1 DOSE MISC PO SCH (12:00)
[2024-02-22] MEDS ORDERED: dilTIAZem HCL 120 MG CAPCR PO SCH (18:53)
[2024-02-23] VITALS (7 sets, daily range): BP systolic 98–139; BP diastolic 72–98
[2024-02-23] MEDS ORDERED: APIXABAN 5 MG TAB PO SCH ×2 (10:31→12:53)
--- NOTE | 2024-02-23 11:04 | EKG ---
[facility] [address] [facility] [place] [address] Signed Atrial fibrillation Nonspecific ST abnormality Abnormal ECG When compared with ECG of 18-FEB-2024 02:23, Nonspecific T wave abnormality no longer evident in Inferior leads QT has lengthened Confirmed by Noah Vilchis MD ([id number]) on 02/23/2024 11:04:13 AM Electronically Signed By: NOAH VILCHIS 02/23/24 1104 PATIENT NAME: CHELE CERVANTES Electrocardiogram DATE OF : 60 PHYSICIAN: NOAH VILCHIS REPORT #: [id number] REPORT IS CONFIDENTIAL AND NOT TO BE RELEASED WITHOUT AUTHORIZATION
[2024-02-23] MEDS ORDERED: OXYCODONE/APAP 5/325 TAB PO PRN (12:30)
[2024-02-23] MEDS ORDERED: SENNOSIDES/DOCUSATE 1 EA TAB PO SCH (21:00)
[2024-02-23] MEDS ORDERED: ATORVASTATIN 40 MG TAB PO SCH (21:00)
[2024-02-23] MEDS ORDERED: POLYETHYLENE GLYCOL 3350 1 PACKET PO SCH (21:00)
[2024-02-24 01:55] VITALS: BP 125/82
[2024-02-24 05:48] VITALS: BP 126/83
[2024-02-24] MEDS ORDERED: LIPITOR40 MG PO (07:41)
[2024-02-24] MEDS ORDERED: ELIQUIS5 MG PO (07:41)
[2024-02-24] MEDS ORDERED: METOPROLOL TART25 MG PO (07:41)
[2024-02-24 07:57] VITALS: BP 105/75
[2024-02-24] MEDS ORDERED: METOPROLOL TARTRATE 25 MG TAB PO SCH (09:00)
== END 2024-02-24 08:10 | disposition short-term general hospital (02) | DRG 66 ==
LOC: ED 12:57 → MS 16:30
PROVIDERS: Emergency Medicine; ADMIT Internal Medicine; ATTEND Internal Medicine
DX: I63.111 Cerebral infarction due to embolism of right vertebral artery (principal); I48.91 Unspecified atrial fibrillation; I10 Essential (primary) hypertension; J44.9 Chronic obstructive pulmonary disease, unspecified; Z66 Do not resuscitate; R73.03 Prediabetes; Z87.19 Personal history of other diseases of the digestive system; Z87.891 Personal history of nicotine dependence; Z98.890 Other specified postprocedural states; Z79.899 Other long term (current) drug therapy; Z79.82 Long term (current) use of aspirin
CPT/HCPCS: 36415; 70450; 70460; 70496; 70498; 70551; 71045; 72125; 73560; 74230; 80053; 80061; 80307; 83036; 84484; 85025; 85610; 85730; 92526; 92610; 92611; 93005; 93010; 93306; 97110; 97112; 97162; 97166; 97535; 99285-25; J0131; J1650; J2270; J7121; Q9967